=== PATIENT | female | born 1955 | race Caucasian/White ===

== ENCOUNTER 2016-09-06 14:06 | Inpatient (IN) | payer MEDICARE, OTHER ==
[~2016-09-06] VITALS: Ht 162.6 cm; Wt 87.3 kg
[2016-09-06] VITALS (24 sets, daily range): BP systolic 97–158; BP diastolic 46–101; PULSE 102–135; RESP 11–28; TEMP 98.3–99.5; O2SAT 91–100
[~2016-09-06 14:06] MED LIST: ACYC-1 PO; ALBU2.5I INH; ALBU8I INH; ATOR10 PO; BENZ100 PO; BISO5TAB5 PO; CEFD300C PO; CLOB-50 TOP; DAPA1TAB2 PO; DOXY100 PO; ECASA PO; EPIP0.3I IM; GABA100C4 PO; GABA300C3 PO; HUMALOGP SQ; HYCOS PO; IBUP800T23 PO; IMIT100T PO; LANTUS2P SQ; LORA0.5T PO; PRED10PA PO; PROM25TA5 PO; SERT25TA83 PO; ZEGE20CA PO; ZOLP10TA3 PO; [UNRECOGNIZED DRUG - CODE] TOP
[2016-09-06] MEDS ORDERED: SODIUM CHLOR 0.9% 1000 ML INJ 1,000 ML IV ONE (14:13)
[2016-09-06] MEDS ORDERED: LORazepam 2 MG/ML VIAL ONE (14:13)
[2016-09-06] MEDS ORDERED: SODIUM CHLORIDE 0.9% FLUSH 5 ML FLUSH IVF PRN (14:15)
[2016-09-06] MEDS ORDERED: LORazepam 2 MG/ML VIAL IV PUSH ONE (14:15)
[2016-09-06] MEDS ORDERED: FOSPHENYTOIN SODIUM 100 MG PE/2 ML VIAL IV ONE (14:30)
[2016-09-06 14:31] LABS: AUTOMATED NEUTROPHIL # 4.1 TH/MM3 (1.8-7.7); BASOPHIL # 0.1 TH/MM3 (0-0.2); BASOPHIL % 1.2 % (0.0-2.0); EOSINOPHIL # 0.2 TH/MM3 (0-0.4); EOSINOPHIL % 2.3 % (0.0-4.0); HEMATOCRIT 40.9 % (35.0-46.0); HEMO FLAGS DIFF FINAL; LYMPH % 25.1 % (9.0-44.0); LYMPHOCYTE # 1.7 TH/MM3 (1.0-4.8); MEAN CELL VOLUME 80.2 FL (80.0-100.0); MEAN CORPUSCULAR HGB CONC 34.9 % (32.0-36.0); MONO % 7.7 % (0.0-8.0); NEUT % 63.7 % (16.0-70.0); PLATELET COUNT 122 TH/MM3 (150-450); RED BLOOD COUNT 5.09 MIL/MM3 (4.00-5.30); RED CELL DISTRIBUTION WIDTH 13.7 % (11.6-17.2); WHITE BLOOD COUNT 6.6 TH/MM3 (4.0-11.0)
[2016-09-06] MEDS ORDERED: HUMA100I3 SQ (14:35)
[2016-09-06] MEDS ORDERED: LANTUS2P SQ (14:35)
[2016-09-06] MEDS ORDERED: ACYC400T PO (14:35)
[2016-09-06] MEDS ORDERED: HYDR-3535 PO (14:35)
[2016-09-06] MEDS ORDERED: DEXI30CA PO (14:35)
[2016-09-06] MEDS ORDERED: CYMB60CA PO (14:35)
[2016-09-06] MEDS ORDERED: GLIM1TAB PO (14:35)
[2016-09-06] MEDS ORDERED: LORA-392 PO (14:35)
[2016-09-06] MEDS ORDERED: FLUT1SPR9 EACH NARE (14:35)
[2016-09-06] MEDS ORDERED: LYRI100C PO (14:35)
[2016-09-06] MEDS ORDERED: ASPI81TA11 PO (14:35)
[2016-09-06 14:41] LABS: CHLORIDE 106 MEQ/L (98-107); POTASSIUM 3.8 MEQ/L (3.5-5.1); SODIUM (NA) 141 MEQ/L (136-145)
--- NOTE | 2016-09-06 14:43 | PD ---
HPI Chief Complaint: Seizure Time Seen by Provider: 14:08 Travel History International Travel<30 days: No Contact w/Intl Traveler<30days: No Traveled to known affect area: No History of Present Illness HPI 61-year-old female presents by ambulance with seizure episode Monday at home. She was at her primary care physician Dr. Gauthier when she had a witnessed generalized tonic-clonic seizure. When I went into the room the patient was tachycardic and having a resting tremor and could not talk with me. Significant history limited. PFSH Past Medical History Narrative Medical By records Hx Anticoagulant Therapy: Yes Arthritis: No Asthma: Yes Anxiety: Yes Depression: Yes Heart Rhythm Problems: Yes (afib) Cancer: No Cardiovascular Problems: Yes High Cholesterol: Yes Chest Pain: Yes Congestive Heart Failure: No COPD: No Cerebrovascular Accident: Yes Diabetes: Yes Endocrine: Yes Fibromyalgia: Yes Gastrointestinal Disorders: Yes GERD: Yes Genitourinary: No Headaches: No Hiatal Hernia: No Hypertension: No Immune Disorder: No Implanted Vascular Access Dvce: Yes Musculoskeletal: Yes Neurologic: Yes Psychiatric: Yes Reproductive: No Respiratory: Yes Migraines: No Myocardial Infarction: No Seizures: No Sleep Apnea: No Ulcer: No Past Surgical History Narrative Surgical By records Abdominal Surgery: Yes (gallbladder, apx) AICD: No Appendectomy: Yes Arteriovenous Shunt: No Body Medical Devices: heart recorder Cardiac Surgery: Yes (cath;loop recorder) Cholecystectomy: Yes Ear Surgery: No Endocrine Surgery: No Eye Surgery: No Genitourinary Surgery: No Gynecologic Surgery: Yes (hysto) Hysterectomy: Yes Insulin Pump: No Joint Replacement: No Neurologic Surgery: No Oral Surgery: No Pacemaker: No Thoracic Surgery: No Other Surgery: Yes Social History Narrative Social History By records Alcohol Use: No Tobacco Use: No Substance Use: No Allergies-Medications (Allergen,Severity, Reaction): Coded Allergies: Bee Sting (Verified Allergy, Severe, Anaphylaxis, 09/06/16) Egg Allergy (Verified Allergy, Severe, SWELLING, 09/06/16) Flu Vaccine (Verified Allergy, Severe, Anaphylaxis, 09/06/16) Sulfa (Verified Allergy, Unknown, RASH, 09/06/16) Reported Meds & Prescriptions Reported Meds & Active Scripts Active Reported Ambien (Zolpidem Tartrate) 10 Mg Tab 10 Mg PO HS PRN Voltaren Topical (Diclofenac Topical) 1% Gel 1 Applic TOPICAL QID Ventolin Hfa 18 GM Inh (Albuterol Sulfate) 90 Mcg/Act Aer 2 Puff INH Q4-6H PRN Symbicort Inh (Budesonide/Formoterol Fumarate) 160-4.5 Mcg/Act Aero 1 Puff INH Q12HR Imitrex (Sumatriptan Succinate) 100 Mg Tab 100 Mg PO ONCE PRN If a satisfactory response has not been obtained at 2 hours, a second dose may be administered Remicade Inj (Infliximab) 100 Mg Inj [id number] Phenergan (Promethazine HCl) 25 Mg Tab 25 Mg PO PRN Prednisone 10 Mg Tab 10 Mg PO BID Metformin (Metformin HCl) 1,000 Mg Tab 1,000 Mg PO BIDPC With meals Lyrica (Pregabalin) 100 Mg Cap 100 Mg PO BID Ativan (Lorazepam) 0.5 Mg Tab 0.5 Mg PO BID PRN Lantus Inj (Insulin Glargine) 1,000 Unit/10 Ml Vial 20 Units SQ HS Lortab (Hydrocodone-Acetaminophen) 10-325 Mg Tab 1 Tab PO Q6H PRN Humalog Kwikpen Pen Inj (Insulin Lispro (Human) Inj) 300 Unit/3 Ml Pen 1 Units SQ DIRECTED Glimepiride 1 Mg Tab 1 Mg PO DAILY Take with breakfast or first main meal Flonase Allergy Relief Children Nasal [place] (Fluticasone Nasal [place]) 50 Mcg/ Act [place] 1 [place] EACH NARE DAILY 50 mcg/spray Dexilant (Dexlansoprazole) 30 Mg Cap 30 Mg PO DAILY Cymbalta DR (Duloxetine HCl) 60 Mg Capdr 60 Mg PO DAILY Aspirin EC (Aspirin) 81 Mg Tabdr 81 Mg PO DAILY Acyclovir 400 Mg Tab 400 Mg PO TID PRN Review of Systems ROS Limitations: Altered Mental Status Except as stated in HPI: all other systems reviewed are Neg Physical Exam Exam Limitations: Altered Mental Status Narrative GENERAL: Well-nourished, well-developed patient. Resting tremor noted SKIN: Warm and dry. HEAD: Normocephalic and atraumatic. EYES: No injection or drainage. ENT: No nasal drainage noted. NECK: Supple, trachea midline. no meningeal signs when awake CARDIOVASCULAR: Tachycardic rate and regular rhythm RESPIRATORY: Breath sounds equal bilaterally. No accessory muscle use. GASTROINTESTINAL: Abdomen soft,nondistended. NEUROLOGICAL: Eyes open, resting tremor noted, nonverbal Data Data Last Documented VS Vital Signs Date Time Temp Pulse Resp B/P Pulse Ox O2 Delivery O2 Flow Rate FiO2 09/06/16 16:20 Room Air 09/06/16 16:01 107 16 122/75 100 09/06/16 14:08 98.3 Orders Lorazepam Inj (Ativan Inj) (09/06/16 14:15) Complete Blood Count With Diff (09/06/16 14:13) Alcohol (Ethanol) (09/06/16 14:13) Drug Screen, Random Urine (09/06/16 14:13) Electrocardiogram (09/06/16 ) Ct Brain W/O Iv Contrast(Rout) (09/06/16 ) Blood Glucose (09/06/16 14:13) Ecg Monitoring (09/06/16 14:13) Iv Access Insert/Monitor (09/06/16 14:13) Oximetry (09/06/16 14:13) Comprehensive Metabolic Panel (09/06/16 14:13) Sodium Chlor 0.9% 1000 Ml Inj (Ns 1000 M (09/06/16 14:13) Sodium Chloride 0.9% Flush (Ns Flush) (09/06/16 14:15) Urinalysis - C+S If Indicated (09/06/16 14:13) Lorazepam Inj (Ativan Inj) (09/06/16 14:13) Fosphenytoin Inj (Cerebyx Inj) (09/06/16 14:30) Ondansetron Inj (Zofran Inj) (09/06/16 16:00) Admit Order (Ed Use Only) (09/06/16 16:20) Consult Neurology (09/06/16 ) Labs Laboratory Tests Test 09/06/16 14:20 White Blood Count 6.6 TH/MM3 Red Blood Count 5.09 MIL/MM3 Hemoglobin 14.3 GM/DL Hematocrit 40.9 % Mean Corpuscular Volume 80.2 FL Mean Corpuscular Hemoglobin 28.0 PG Mean Corpuscular Hemoglobin 34.9 % Concent Red Cell Distribution Width 13.7 % Platelet Count 122 TH/MM3 Mean Platelet Volume 8.3 FL Neutrophils (%) (Auto) 63.7 % Lymphocytes (%) (Auto) 25.1 % Monocytes (%) (Auto) 7.7 % Eosinophils (%) (Auto) 2.3 % Basophils (%) (Auto) 1.2 % Neutrophils # (Auto) 4.1 TH/MM3 Lymphocytes # (Auto) 1.7 TH/MM3 Monocytes # (Auto) 0.5 TH/MM3 Eosinophils # (Auto) 0.2 TH/MM3 Basophils # (Auto) 0.1 TH/MM3 CBC Comment DIFF FINAL Differential Comment Prothrombin Time 10.2 SEC Prothromb Time International 0.9 RATIO Ratio Sodium Level 141 MEQ/L Potassium Level 3.8 MEQ/L Chloride Level 106 MEQ/L Carbon Dioxide Level 22.6 MEQ/L Anion Gap 12 MEQ/L Blood Urea Nitrogen 7 MG/DL Creatinine 0.86 MG/DL Estimat Glomerular Filtration 68 ML/MIN Rate Random Glucose 212 MG/DL Calcium Level 9.3 MG/DL Total Bilirubin 0.6 MG/DL Aspartate Amino Transf 35 U/L (AST/SGOT) Alanine Aminotransferase 80 U/L (ALT/SGPT) Alkaline Phosphatase 83 U/L Total Protein 7.3 GM/DL Albumin 4.0 GM/DL Ethyl Alcohol Level LESS THAN 3 MG/DL MDM Medical Decision Making Medical Screen Exam Complete: Yes Emergency Medical Condition: Yes Medical Record Reviewed: Yes (past history confirmed with office records and hospital records) Interpretation(s) EKG is sinus tachycardia at 115 without STEMI criteria CBC & BMP Diagram 09/06/16 14:20 Last [address] 09/06/16 0000 Signed Impressions: Service Date/Time: Tuesday, September 06, 2016 15:37 - CONCLUSION: Normal examination for a patient of this age. No significant change has occurred. Riley Villaseñor MD Differential Diagnosis Hypoglycemia, hyponatremia, medication withdrawal, intracranial, seizure disorder... Narrative Course Will check blood work, CT brain and dose with 1 mg of Ativan to decrease seizure threshold as she looks like she is about to have a seizure; while I was entering Ativan she started to have a generalized tonic-clonic seizure per nursing staff when I went in the room she was postictal and given 2 mg of Ativan in total at that time; shortly after she was awake and talking and denied alcohol use or chronic benzodiazepine use. She states that she recalled getting shaky 1438 started having another seizure episode per nurse, when I went in the room patient was nonverbal and having fine movement noted to upper arms but did not appear to be a full generalized tonic-clonic seizure. We'll continually monitor and had nursing staff call pharmacy to expedite Cerebyx 1455 patient started having episode, cerebyx now here and running in, will monitor On reassessment after completion of Cerebyx she is alert and oriented and has stopped seizing. She denies specific complaints currently and agrees to admission to the hospital for further testing Critical Care Narrative Aggregate critical care time was 31 minutes. Time to perform other separately billable procedures was not included in the critical care time. My time did not include minutes spent treating any other patients simultaneously or on activities that did not directly contribute to the patient's treatment. The services I provided to this patient were to treat and/or prevent clinically significant deterioration that could result in: Status epilepticus, respiratory failure I provided critical care services requiring my management, as noted below: Chart data review, documentation time, medication orders and management, vital sign assessments/reviewing monitor data, ordering and reviewing lab tests, ordering and interpreting/reviewing x-rays and diagnostic studies, care of the patient and discussion of the patient with the admitting physicians.Patient with multiple seizures and Ativan and Cerebyx given, new onset, multiple reassessments Physician Communication Physician Communication dr montoya states to load with 15 mg/kg of Cerebyx and admit with MRI, EEG and further testing dr nichols agrees to admit Diagnosis Primary Impression: Seizure Additional Impression: Sarcoidosis Admitting Information Admitting Physician Requests: Admit Cathy Sauer MD Sep 06, 2016 14:43
[2016-09-06 14:45] LABS: ANION GAP 12 MEQ/L (5-15); BICARBONATE 22.6 MEQ/L (21.0-32.0); BLOOD UREA NITROGEN 7 MG/DL (7-18)
[2016-09-06] MEDS ORDERED: PROM25TA5 PO (14:47)
[2016-09-06] MEDS ORDERED: METF1000 PO (14:47)
[2016-09-06] MEDS ORDERED: IMIT100T PO (14:47)
[2016-09-06] MEDS ORDERED: INFL100P (14:47)
[2016-09-06] MEDS ORDERED: PRED10 PO (14:47)
[2016-09-06] MEDS ORDERED: SYMB160A INH (14:47)
[2016-09-06] MEDS ORDERED: VENTAER INH (14:47)
[2016-09-06] MEDS ORDERED: AMBI10TA PO (14:47)
[2016-09-06] MEDS ORDERED: DICL1GEL TOPICAL (14:47)
[2016-09-06 14:48] LABS: ALT (GPT) 80 U/L (10-53); AST (GOT) 35 U/L (15-37); GLOMERULAR FILTRATION RATE 68 ML/MIN (>89)
[2016-09-06 14:49] LABS: TOTAL BILIRUBIN ADULT 0.6 MG/DL (0.2-1.0)
[2016-09-06 14:50] LABS: ALKALINE PHOSPHATASE 83 U/L (45-117)
--- NOTE | 2016-09-06 15:52 | RADHPO ---
EXAM DATE/TIME: 09/06/2016 15:37 [facility] COMPARISON: CT BRAIN W/O CONTRAST, August 21, 2014, 10:01. INDICATIONS : New onset seizure. RADIATION DOSE: 56.94 CTDIvol (mGy) MEDICAL HISTORY : Cerebrovascular disease. Cardiovascular disease Diabetes. SURGICAL HISTORY : Cardiac surgery. ENCOUNTER: Initial ACUITY: 1 day PAIN SCALE: 0/10 LOCATION: cranial TECHNIQUE: Multiple contiguous axial images were obtained of the head. Using automated exposure control and adj ustment of the mA and/or kV according to patient size, radiation dose was kept as low as reasonably a chievable to obtain optimal diagnostic quality images. FINDINGS: CEREBRUM: The ventricles are normal for age. No evidence of midline shift, mass lesion, hemorrhage or acute in farction. No extra-axial fluid collections are seen. POSTERIOR FOSSA: The cerebellum and brainstem are intact. The 4th ventricle is midline. The cerebellopontine angle i s unremarkable. EXTRACRANIAL: The visualized portion of the orbits is intact. SKULL: The calvaria is intact. No evidence of skull fracture. CONCLUSION: Normal examination for a patient of this age. No significant change has occurred. Riley Villaseñor MD on September 06, 2016 at 15:50 Board Certified Radiologist. This report was verified electronically.
[2016-09-06] MEDS ORDERED: ONDANSETRON HCL 4 MG/2 ML VIAL IV PUSH ONE (16:00)
[2016-09-06 16:45] LABS: BLOOD, URINE NEG (NEG); KETONE, URINE TRACE mg/dL (NEG); NITRITE,URINE NEG (NEG)
[2016-09-06 16:55] LABS: COMMENT (UR) CULT NOT INDICATED; CULTURE IF INDICATED CULT NOT INDICATED; GLUCOSE,URINE 1000 OR GREATER mg/dL (NEG); METHOD OF COLLECTION CLEAN CATCH; RBC, URINE 0-3 /hpf (0-3); SQUAMOUS EPITHELIAL CELL URINE 0-5 /hpf (0-5); URINE COLOR YELLOW (YELLW/STRAW)
[2016-09-06] MEDS ORDERED: SODIUM CHLORIDE 0.9% FLUSH 5 ML FLUSH FLUSH PRN (17:15)
[2016-09-06] MEDS ORDERED: VANCOMYCIN INJ 1,250 MG in SODIUM CHLOR 0.9% 250 ML INJ 250 ML IV SCH (17:15)
--- NOTE | 2016-09-06 17:25 | HHI.HP ---
[facility] Service [facility] Hospitalists Primary Care Physician Non-Staff Admission Diagnosis new onset seizure disorder Diagnoses: Chief Complaint: Weakness and seizure Travel History International Travel<30 Days: No Contact w/Intl Traveler <30 Da: No Traveled to Known Affected Are: No History of Present Illness Patient is a 61-year-old female who had seizures in her primary doctor's office and was sent to the emergency room. Lady has no history of seizures and no recent brain trauma. She did have a follow-up visit scheduled with her primary doctor after being admitted to the hospital for acute exacerbation of asthma and discharged on steroids and bronchodilator therapy. In the office she had a seizure witnessed by the staff and was sent urgently to the emergency room where she had for more seizures which were treated with Ativan and Cerebyx. Patient had clonic movements and eye jerking and had minimal contact. There was no urinary incontinence and she did not bite her tongue. She has never had seizures before but says that last Monday her family said she had some tremors and jerking movements which they thought looked like a seizure. Patient this time says she feels ill and has felt ill for the last week. She's had increased fatigue without fever but has had some flushing. She does have a history of HSV and takes acyclovir as needed. Patient has not had any fevers or chills documented here and has no leukocytosis. There is some right lower extremity weakness that is new for the patient and the patient has been tachycardic here in the emergency room. There is no chest pain complaint. She does complain of a headache. She has had migraines for years but note characteristic change in her headaches over the last 3 days. Headache is in the back of her neck and radiates down her neck. She has full range of motion without tenderness of her neck and there is no Kernig or straight leg sign of note on exam. Patient's been admitted to the hospital for seizures of new onset Review of Systems Constitutional: COMPLAINS OF: Fatigue, Chills, Dizziness, DENIES: Diaphoretic episodes, Fever, Weight gain, Weight loss, Change in appetite, Night Sweats Endocrine: DENIES: Abnorml menstrual pattern, Heat/cold intolerance, Polydipsia , Polyuria, Polyphagia Eyes: DENIES: Blurred vision, Diplopia, Eye inflammation, Eye pain, Vision loss , Photosensitivity, Double Vision Ears, nose, mouth, throat: DENIES: Tinnitus, Hearing loss, Vertigo, Nasal discharge, Oral lesions, Throat pain, Hoarseness, Ear Pain, Running Nose, Epistaxis, Sinus Pain, Toothache, Odynophagia Respiratory: DENIES: Apneas, Cough, Snoring, Wheezing, Hemoptysis, Sputum production, Shortness of breath Cardiovascular: DENIES: Chest pain, Palpitations, Syncope, Dyspnea on Exertion , PND, Lower Extremity Edema, Orthopnea, Claudication Gastrointestinal: DENIES: Abdominal pain, Black stools, Bloody stools, Constipation, Diarrhea, Nausea, Vomiting, Difficulty Swallowing, Anorexia Genitourinary: DENIES: Abnormal vaginal bleeding, Dysmenorrhea, Dyspareunia, Sexual dysfunction, Urinary frequency, Urinary incontinence, Urgency, Hematuria , Dysuria, Nocturia, Vaginal discharge Musculoskeletal: DENIES: Joint pain, Muscle aches, Stiffness, Joint Swelling, Back pain, Neck pain Integumentary: DENIES: Abnormal pigmentation, Pruritus, Rash, Nail changes, Breast masses, Breast skin changes, Nipple discharge Hematologic/lymphatic: DENIES: Bruising, Lymphadenopathy Immunologic/allergic: DENIES: Eczema, Urticaria Neurologic: COMPLAINS OF: Headache, Seizures, Tremor, DENIES: Abnormal gait, Localized weakness, Paresthesias, Speech Problems, Poor Balance Psychiatric: DENIES: Anxiety, Confusion, Mood changes, Depression, Hallucinations, Agitation, Suicidal Ideation, Homicidal Ideation, Delusions Past Family Social History Past Medical History Psoriatic arthritis and rheumatoid arthritis (Recently started Remicade) Diabetes mellitus History of HSV GERD Asthma, recent exacerbation at [facility] Diabetic neuropathy History of migraines Past Surgical History Cholecystectomy, appendectomy Loop heart rate for heart catheter Hysterectomy Reported Medications Reviewed and the medical record, has been on Remicade for 8 weeks Allergies: Coded Allergies: Bee Sting (Verified Allergy, Severe, Anaphylaxis, 09/06/16) Egg Allergy (Verified Allergy, Severe, SWELLING, 09/06/16) Flu Vaccine (Verified Allergy, Severe, Anaphylaxis, 09/06/16) Sulfa (Verified Allergy, Unknown, RASH, 09/06/16) Active Ordered Medications Reviewed in the medical record Family History Her son has seizures Social History No tobacco or alcohol dependency, recently left [facility] on the with treatment for acute exacerbation of asthma No recent travel No sick contacts Physical Exam Vital Signs Vital Signs Date Time Temp Pulse Resp B/P Pulse Ox O2 Delivery O2 Flow Rate FiO2 09/06/16 17:08 112 16 123/63 97 Room Air 09/06/16 16:20 Room Air 09/06/16 16:01 107 16 122/75 100 Room Air 09/06/16 15:32 112 20 123/61 95 Room Air 09/06/16 15:13 117 17 100 Room Air 09/06/16 15:01 128 19 158/101 99 Room Air 09/06/16 14:36 135 27 144/84 99 09/06/16 14:25 122 16 140/73 96 Room Air 09/06/16 14:19 124 95 Room Air 09/06/16 14:19 95 Room Air 09/06/16 14:08 98.3 117 16 140/73 98 Physical Exam GENERAL: This is a well-nourished, well-developed patient, she appears flushed and ill appearing. SKIN: No rashes, ecchymoses or lesions. Cool and dry. HEAD: Atraumatic. Normocephalic. No temporal or scalp tenderness. EYES: Pupils equal round and reactive. Extraocular motions intact. No scleral icterus. No injection or drainage. ENT: Nose without bleeding, purulent drainage or septal hematoma. Throat without erythema, tonsillar hypertrophy or exudate. Uvula midline. Airway patent. NECK: Trachea midline. No JVD or lymphadenopathy. Supple, nontender, no meningeal signs. CARDIOVASCULAR: Sinus tachycardia without murmurs, gallops, or rubs. RESPIRATORY: Clear to auscultation. Breath sounds equal bilaterally. No wheezes , rales, or rhonchi. GASTROINTESTINAL: Abdomen soft, non-tender, nondistended. No hepato-splenomegaly , or palpable masses. No guarding. MUSCULOSKELETAL: Extremities without clubbing, cyanosis, or edema. No joint tenderness, effusion, or edema noted. No calf tenderness. Negative Homans sign bilaterally. NEUROLOGICAL: A right lower extremity weakness is present, awake and alert. Cranial nerves II through XII intact. Motor and sensory grossly within normal limits. Five out of 5 muscle strength in all muscle groups. Normal speech. Laboratory Laboratory Tests Test 09/06/16 09/06/16 14:20 16:36 White Blood Count 6.6 Red Blood Count 5.09 Hemoglobin 14.3 Hematocrit 40.9 Mean Corpuscular Volume 80.2 Mean Corpuscular Hemoglobin 28.0 Mean Corpuscular Hemoglobin 34.9 Concent Red Cell Distribution Width 13.7 Platelet Count 122 Mean Platelet Volume 8.3 Neutrophils (%) (Auto) 63.7 Lymphocytes (%) (Auto) 25.1 Monocytes (%) (Auto) 7.7 Eosinophils (%) (Auto) 2.3 Basophils (%) (Auto) 1.2 Neutrophils # (Auto) 4.1 Lymphocytes # (Auto) 1.7 Monocytes # (Auto) 0.5 Eosinophils # (Auto) 0.2 Basophils # (Auto) 0.1 CBC Comment DIFF FINAL Differential Comment Sodium Level 141 Potassium Level 3.8 Chloride Level 106 Carbon Dioxide Level 22.6 Anion Gap 12 Blood Urea Nitrogen 7 Creatinine 0.86 Estimat Glomerular Filtration 68 Rate Random Glucose 212 Calcium Level 9.3 Total Bilirubin 0.6 Aspartate Amino Transf 35 (AST/SGOT) Alanine Aminotransferase 80 (ALT/SGPT) Alkaline Phosphatase 83 Total Protein 7.3 Albumin 4.0 Ethyl Alcohol Level LESS THAN 3 Urine Collection Type CLEAN CATCH Urine Color YELLOW Urine Turbidity CLEAR Urine pH 6.0 Urine Specific [place] 1.019 Urine Protein NEG Urine Glucose (UA) 1000 OR GREATER Urine Ketones TRACE Urine Occult Blood NEG Urine Nitrite NEG Urine Bilirubin NEG Urine Leukocyte Esterase NEG Urine RBC 0-3 Urine Squamous Epithelial 0-5 Cells Microscopic Urinalysis Comment CULT NOT INDICATED Urine Collection Time 16:356 Result Diagram: 09/06/16 1420 09/06/16 1420 Imaging Last Impressions Head CT 09/06/16 0000 Signed Impressions: Service Date/Time: Tuesday, September 06, 2016 15:37 - CONCLUSION: Normal examination for a patient of this age. No significant change has occurred. Riley Villaseñor MD Assessment and Plan Problem List: (1) Seizure ICD Code: R56.9 Status: Acute Plan: New onset, some right lower extremity weakness MRI pending Rule out meningitis, stroke, continue with current antibiotics and antiepileptic drugs for now We'll monitor patient in ICU (2) Asthma ICD Code: J45.909 Status: Acute Plan: Continue bronchodilators as needed, recent hospitalization with acute exacerbation ([facility]) (3) DM2 (diabetes mellitus, type 2) ICD Code: E11.9 Status: Chronic Plan: Continue home medicines Physician Certification 2 Midnight Certification Type: Admission for Inpatient Services Order for Inpatient Services The services are ordered in accordance with Medicare regulations or non- Medicare payer requirements, as applicable. In the case of services not specified as inpatient-only, they are appropriately provided as inpatient services in accordance with the 2-midnight benchmark. Estimated LOS (days): 4 4 days is the estimated time the patient will need to remain in the hospital, assuming treatment plan goals are met and no additional complications. Post-Hospital Plan: Home Emerita Vidales MD Sep 06, 2016 17:25
[2016-09-06 17:39] LABS: AMPHETAMINE, URINE NEG (NEG); BARBITURATES, URINE NEG (NEG); COCAINE, URINE NEG (NEG)
[2016-09-06] MEDS: cefTRIAXone INJ 2,000 MG in SODIUM CHLORIDE 0.9% INJ 100 ML IV SCH (17:46)
[2016-09-06] MEDS: SODIUM CHLOR 0.9% 1000 ML INJ 1,000 ML IV SCH (17:47)
[2016-09-06 17:48] LABS: INTERNATIONAL NORMALIZED RATIO 0.9 RATIO; PROTHROMBIN TIME - PATIENT 10.2 SEC (9.8-11.6)
[2016-09-06] MEDS ORDERED: Vancomycin Consult Pharmacy 1 EA OTHER SCH (18:00)
[2016-09-06] MEDS: LORazepam 2 MG/ML VIAL IV PUSH PRN ×2 (18:31→21:57)
[2016-09-06] MEDS: VANCOMYCIN 1,000 MG/NS 250 ML IV SCH ×2 (20:20)
[2016-09-06] MEDS ORDERED: CHLORHEXIDINE GLUCONATE 2 % 1 PACK (2 CLOTHS)(extra cloths) TOP PRN (21:45)
[2016-09-06] MEDS ORDERED: FOSPHENYTOIN SODIUM 100 MG PE/2 ML VIAL IV SCH (22:00)
[2016-09-06] MEDS: FOSPHENYTOIN SODIUM 100 MG PE/2 ML VIAL IV SCH (22:00)
[2016-09-06] MEDS ORDERED: levETIRAcetam 500MG PREMIX INJ 100 ML IV SCH (22:30)
[2016-09-06] MEDS ORDERED: SODIUM CHLOR 0.9% 250 ML INJ 250 ML IV PRN (22:30)
[2016-09-06] MEDS: SODIUM CHLORIDE 0.9% FLUSH 5 ML FLUSH FLUSH SCH (22:42)
[2016-09-07] VITALS (37 sets, daily range): BP systolic 90–139; BP diastolic 53–80; PULSE 84–136; RESP 11–30; TEMP 98.1–98.5; O2SAT 93–99
[2016-09-07] MEDS: CHLORHEXIDINE GLUCONATE 2 % 1 PACK (2 CLOTHS)(taper/protocol) TOP SCH (04:00)
[2016-09-07] MEDS: SODIUM CHLOR 0.9% 1000 ML INJ 1,000 ML IV SCH ×3 (04:19→23:39)
[2016-09-07] MEDS: cefTRIAXone INJ 2,000 MG in SODIUM CHLORIDE 0.9% INJ 100 ML IV SCH ×2 (06:16→17:33)
[2016-09-07] MEDS: FOSPHENYTOIN SODIUM 100 MG PE/2 ML VIAL IV SCH ×3 (06:16→21:16)
[2016-09-07] MEDS: VANCOMYCIN 1,000 MG/NS 250 ML IV SCH ×4 (07:52→20:22)
[2016-09-07] MEDS: SODIUM CHLORIDE 0.9% FLUSH 5 ML FLUSH FLUSH SCH ×2 (09:46→20:57)
[2016-09-07] MEDS ORDERED: levETIRAcetam 500 MG/NS 100 ML IV SCH ×2 (10:00)
[2016-09-07] MEDS ORDERED: GLUCAGON 1 MG/ML VIAL OTHER PRN (10:15)
[2016-09-07] MEDS ORDERED: DEXTROSE 50% IN WATER 50 ML VIAL(D50) IV PUSH PRN (10:15)
--- NOTE | 2016-09-07 10:21 | HHI.PR ---
Subjective Remarks Patient seen and examined today. Patient little lethargic from medications. It was indicated by and patient, that she had another seizure last night at 9 PM. Patient did undergo EEG this morning. Awaiting further workup at this time. Objective Vitals Vital Signs Date Time Temp Pulse Resp B/P Pulse Ox O2 Delivery O2 Flow Rate FiO2 09/07/16 07:01 92 12 100/56 09/07/16 06:01 100 17 98/60 09/07/16 06:01 100 09/07/16 05:01 94 18 104/66 09/07/16 04:01 98.1 98 17 97 09/07/16 04:01 98 09/07/16 04:00 100 09/07/16 03:01 102 17 99/58 09/07/16 02:01 102 18 101/56 09/07/16 02:01 102 09/07/16 02:00 102 09/07/16 01:00 102 19 96/60 09/07/16 00:20 106 21 97/61 09/07/16 00:00 98.5 96 19 99/57 96 09/07/16 00:00 96 09/06/16 23:39 108 25 102/61 97 09/06/16 23:24 106 14 108/56 96 09/06/16 23:24 106 09/06/16 23:09 108 15 114/57 94 09/06/16 22:54 102 15 126/58 91 09/06/16 22:39 104 17 107/61 93 09/06/16 22:30 108 16 118/62 92 09/06/16 22:30 108 09/06/16 22:20 110 17 104/64 92 09/06/16 22:10 116 18 136/63 91 09/06/16 22:00 118 13 133/71 92 09/06/16 21:48 126 09/06/16 21:48 126 28 118/78 97 09/06/16 21:00 104 11 101/76 96 09/06/16 20:00 106 09/06/16 19:58 99.5 106 11 118/58 95 09/06/16 19:31 111 18 97/46 98 Room Air 09/06/16 18:24 Room Air 09/06/16 17:59 99.2 110 16 117/53 96 Room Air 09/06/16 17:08 112 16 123/63 97 Room Air 09/06/16 16:20 Room Air 09/06/16 16:01 107 16 122/75 100 Room Air 09/06/16 15:32 112 20 123/61 95 Room Air 09/06/16 15:13 117 17 100 Room Air 09/06/16 15:01 128 19 158/101 99 Room Air 09/06/16 14:36 135 27 144/84 99 09/06/16 14:25 122 16 140/73 96 Room Air 09/06/16 14:19 124 95 Room Air 09/06/16 14:19 95 Room Air 09/06/16 14:08 98.3 117 16 140/73 98 I/O 09/06/16 09/06/16 09/06/16 09/07/16 09/07/16 09/07/16 07:00 15:00 23:00 07:00 15:00 23:00 Intake Total 996 ml Output Total 400 ml 950 ml Balance -400 ml 46 ml Intake Oral 120 ml IV Total 876 ml Output Urine Total 400 ml 950 ml Stool Total 0 ml # Voids 0 Result Diagram: 09/06/16 1420 09/06/16 1420 Objective Remarks GENERAL: Well-developed, well-nourished, in no acute distress. alert and orientated HEENT: Head is normocephalic without any lesions or masses noted. Facial features are symmetric. Eyes: Pupils equal round reactive to light. Extraocular muscles are intact. Conjunctivae were clear. NECK: Supple without any masses. Trachea midline no deviation. No JVD, CARDIAC: Regular rhythm, regular rate. S1/S2 are heard. No murmurs gallops or rubs. LUNGS: Clear to auscultation bilaterally. No wheeze, rhonchi or rales. No use of accessory muscles on inspiration or expiration. ABDOMEN: Soft, nontender. Nondistended. Bowel sounds heard in all 4 quadrants. No organomegaly or masses. Negative rebound, negative guarding EXTREMITIES: No edema, pulses are equal bilaterally. No cyanosis or clubbing NEUROLOGY: Mood and affect appear appropriate. Cranial nerves II through XII grossly intact. Moving all extremities, speech is clear Urinary Catheter: No Vascular Central Line Catheter: No A/P Assessment and Plan New onset seizures versus pseudoseizures, unknown etiology CT scan does not indicate any acute abnormality Awaiting MRI EEG has been performed, awaiting interpretation Patient is on Cerebyx, phenobarbital, Keppra and Ativan as needed for seizures - still having questionable seizures wherein she remains communicative with the nurses - I witnessed one myself this morning and the patient was grasping onto the handrail of her bed with her left hand and arching her back and hyperventilating and saying yes or no to me in response to questioning and did not appear post ictal afterwards. Rule out meningitis secondary patient having headache and neck pain with seizures. Awaiting lumbar puncture Patient continued on Rocephin and vancomycin until ruled out for meningitis Neurology has been consulted for recommendations Asthma Continue bronchodilators as needed, recent hospitalization with acute exacerbation ([facility]) Diabetes type 2 Accu-Cheks with sliding scale insulin DVT prevention Subcutaneous Lovenox Written by Musa Pradhan PA-C, acting as scribe for Dr. Pardo on 09/07/16 at 1120. The documentation accurately reflects the work and decisions performed face-to- face by Dr. Pardo on 09/07/16 at 1120. Musa Pradhan Sep 07, 2016 10:21 Barbara Pardo MD Sep 07, 2016 13:04
[2016-09-07] MEDS: LORazepam 2 MG/ML VIAL IV PUSH PRN (10:40)
[2016-09-07] MEDS: INSULIN ASPART SUPPLEMENTAL SCALE SQ SCH ×3 (12:00→21:15)
--- NOTE | 2016-09-07 14:30 | PD.RAD ---
Post Procedure Progress Note Pre Procedure Diagnosis: (1) Seizure Post Procedure Diagnosis: (1) Seizure Procedure Date: Sep 07, 2016 Supervising Radiologist: Aleksandr Nolasco JR Proceduralist/Assist: Carlie Conway RT(R)(), RT Wendy(R) Anesthesia: Local Plan of Activity Patient to Unit: Nursing Unit Patient Condition: Good See PACS Report for procedural detail/treatment Spinal Procedure Lumbar Puncture L3-L4 Fluid Removal (CCs): 12 Fluid Description: Clear Puncture Time: 14:25 Findings: Opening pressure: 18 cmH2O Clear CSF Samples to lab Jr. Gaurav,Aleksandr Lilly MD Sep 07, 2016 14:30
--- NOTE | 2016-09-07 14:48 | RADHPO ---
EXAM DATE/TIME: 09/07/2016 14:14 [facility] COMPARISON: None. INDICATIONS : Patient with a history of seizures, headaches. MEDICAL HISTORY : Psoriatic arthritis Diabetes HSV GERD Asthma Diabetic neuropathy Migraines SURGICAL HISTORY : Cholecystectomy Appendectomy Hysterectomy ENCOUNTER: Initial ACUITY: 2 days PAIN SCORE: 0/10 LUMBAR PUNCTURE TIME: 1420 hours FLUORO TIME: 0.5 minutes ACCESS LEVEL: L3-4. Below the right L3 lamina. OPENING PRESSURE: 18 cm of water CLOSING PRESSURE: Not requested. FLUID: 12 cc of clear CSF was collected and sent to the laboratory for analysis. PROCEDURE : 1. Fluoroscopic guided lumbar puncture. 2. Recording of opening pressure. The risks, benefits and alternatives to the procedure were explained and verbal and written consent w as obtained. The site was prepped in sterile fashion. Full sterile technique was used, including ca p, mask, sterile gloves and gown and a large sterile sheet. Hand hygiene and 2% chlorhexidine and/or betadine/alcohol prep was utilized per protocol for cutaneous antisepsis. The skin and subcutaneous tissues were infiltrated with local anesthetic solution. With fluoroscopic guidance the lumbar thecal sac was punctured at the above level described above and the opening pressure was recorded. The above described fluid was removed without difficulty. The patient tolerated the procedure well and there were no complications. CONCLUSION: Uncomplicated fluoroscopically guided lumbar puncture with pressures as above. Clear CSF noted and sent to the lab. Aleksandr Nolasco Jr., MD Board Certified Radiologist. This report was verified electronically.
--- NOTE | 2016-09-07 14:52 | MG ---
cc: FATMATA DORSEY Lab No: [id number] Date: 09/07/2016 Age: Sex: F Stat. EEG. Status post a milligram of Ativan. Heart rate in the 150s. Drawing arms up, shaking, lifts head, holds breath, red in the face. Fibromyalgia. MEDICATIONS Phenobarbital, Keppra, Cerebyx. Ceftriaxone. DESCRIPTION The recording shows diffuse beta rhythms and alpha rhythms. The recording overall is synchronous and symmetric and looks quite normal. Photic stimulation is performed without significant posterior driving. There is an episode where her mouth is moving. She arches her back up and raises her legs and arms. This does not correlate with any seizure activity and just has motor artifact. Some sleep spindles are seen later in the recording which are synchronous and symmetric. At times some diffuse 9 Hz, 60 microvolt rhythms are seen. She had another episode of shaking her legs and that does not correlate with any seizure activity. Breathing heavy at times, head back, pulling at bed, says she needs something to drink. Breath-holding, screaming, arms out rigid. All that looks like muscle artifact. IMPRESSION This is a normal EEG, has some medication effect from benzodiazepines but there is no epileptiform or seizure activity. Several episodes of moving, yelling out, pulling his arms and legs up did not correlate with any seizure activity. MD MIHAELA Ca/ANNE /2:28 PM /2:42 PM
[2016-09-07 15:11] LABS: GROSS BLOOD TUBE #1 0 (0); GROSS BLOOD TUBE #2 0 (0); GROSS BLOOD TUBE #3 0 (0); GROSS BLOOD TUBE #4 0 (0); SUPERNATE COLOR TUBE #1 CLEAR (CLEAR); SUPERNATE COLOR TUBE #2 CLEAR (CLEAR); SUPERNATE COLOR TUBE #3 CLEAR (CLEAR); SUPERNATE COLOR TUBE #4 CLEAR (CLEAR); VOLUME TUBE # 1 2.5 ML; VOLUME TUBE # 2 2.5 ML; WBC TUBE #4 0 /MM3 (0-10)
--- NOTE | 2016-09-07 15:53 | EKG ---
Date Performed: 09/06/2016 Time Performed: 14:07:38 PTAGE: 61 years EKG: Sinus tachycardia. Short OK interval Compared to prior tracing no significant change Border line ECG PREVIOUS TRACING : 09/10/2015 15.32 DOCTOR: Alan Guy Interpretating Date/Time 09/07/2016 15:52:33
--- NOTE | 2016-09-07 15:53 | RADHPO ---
EXAM DATE/TIME: 09/07/2016 14:56 [facility] COMPARISON: No previous studies available for comparison. INDICATIONS: Seizures. MEDICAL HISTORY: Gastroesophageal reflux disease. Cerebrovascular disease. Cardiovascular disease. Asthma. Diabetes. SURGICAL HISTORY: Appendectomy. Cholecystectomy. Hysterectomy. Cardiac surgery. ENCOUNTER: Subsequent ACUITY: 2 day PAIN SCORE: 0/10 LOCATION: Cranial TECHNIQUE: Multiplanar, multisequence MRI of the brain was performed without contrast. FINDINGS: There is no restricted diffusion evident. Very minimal scattered areas of high signal intensity are present in the periventricular white matter in a very nonspecific fashion. There is no parenchymal h emorrhage, acute infarction, mass lesion. There are no extraaxial fluid collections appreciated. Po sterior fossa is unremarkable. Midline 4th ventricle. CONCLUSION: Negative MRI of the brain. I do not see evidence for seizure focus. Jeremy Souza MD FACR on September 07, 2016 at 15:39 Board Certified Radiologist. This report was verified electronically.
[2016-09-07] MEDS ORDERED: LORazepam 2 MG/ML VIAL IV PUSH PRN (21:00)
--- NOTE | 2016-09-07 21:15 | MB ---
cc: LUCAS AMBROSIO M.D. DATE OF CONSULTATION 09/07/2016 REASON FOR CONSULTATION Seizure. HISTORY OF PRESENT ILLNESS Ms. Martinez is a 61-year-old female previously healthy until this weekend. Her states around Monday evening while in bed was having shaking activity, mainly tremulousness, occurred in her sleep as well. Apparently while she was in her primary care physician's office, she was being seen for asthma exacerbation, she had generalized seizure witnessed by the staff and was to the ER. She has had several of these seizures, about four additional seizures treated with Ativan. Since then has been loaded with Cerebyx. Her phenytoin level yesterday was 23.7. Apparently she had another episode today around 05:30. Her states that she stiffens up, loses consciousness, at times can feel they are coming on. Afterwards she is lethargic. She does have a history of head trauma with loss of consciousness 10 years ago. No other risk factors for seizures, however. PAST MEDICAL/SURGICAL HISTORY 1. Recent asthma exacerbation. 2. Rheumatoid arthritis. 3. Psoriatic arthritis. 4. Diabetes. 5. History of HSV. 6. Gastroesophageal reflux disease. 7. Asthma. 8. Diabetic neuropathy. 9. Migraine headaches. 10. Appendectomy. 11. Hysterectomy. ALLERGIES BEE STINGS. EGG ALLERGY. FLU VACCINE. SULFA. CURRENT MEDICATIONS 1. Cerebyx 100 mg q.8 hours. 2. Keppra which was started today 500 mg IV b.i.d. 3. Phenobarbital 80 mg IV q.12 hours. 4. Vancomycin. 5. Ceftriaxone. PHYSICAL EXAMINATION VITAL SIGNS: Blood pressure is 102/61, pulse of 96, respiratory rate 19, temperature 98 degrees. NEUROLOGIC: Higher cortical function - She is alert. There is no focal deficit on her examination. IMAGING STUDIES MRI of the brain is within normal limits. CT of the brain normal. EEG is normal. LABORATORY DATA Tox screen positive for Dilantin 23.7, otherwise negative. White count was 6600, hemoglobin 14.3, hematocrit 40.9%, platelet count 122,000. Sodium 141, potassium 3.8, chloride 106, CO2 22.6, BUN is 7, creatinine 0.86, GFR is 68, glucose 212, AST 35, ALT is 80. PT 10.2, INR 0.9. CSF: 0 WBCs or RBCs, glucose 105, protein 51. IMPRESSION Seizure versus pseudoseizure. RECOMMENDATIONS We will increase the Keppra dose to 500 mg IV q.6 hours, continue the current dose of Cerebyx and phenobarbital. We will check levels in the morning. If the patient continues having episodes, consider transferring to a facility where continuous EEG telemetry monitoring is available. MD JERO Stallings/ROSY /8:49 PM /9:00 PM
--- NOTE | 2016-09-07 21:39 | MB ---
cc: LUCAS AMBROSIO M.D. DATE OF CONSULTATION: 09/07/2016 REASON FOR CONSULTATION: ADDENDUM: After initially evaluating the patient, the patient had a typical episode according to her . I witnessed this as well. She began moaning, she began stiffening up in both upper and lower extremities. She spontaneously rolled onto her left side with asynchronous tremulous type of activity which did not appear to be tonic clonic at all. She turned to her left side, began lip smacking. She was called to but did not respond. She had to and fro movements of the arms. She had arching of her back, some degree of pelvic thrusting as well. The episode lasted probably one to two minutes after which she was able to answer questions. She could tell me what year it was and where she was. The appearance of the episode is very suggestive of pseudoseizures. The posturing and type of activity during the episode was very atypical for a grand mal seizure. Furthermore, she really had no post ictal state. She was able to answer questions appropriately including the year and the place. MD JERO Stallings/DIMITRY /9:13 PM /9:33 PM
[2016-09-07] MEDS: levETIRAcetam INJ 500 MG in SODIUM CHLORIDE 0.9% INJ 100 ML IV SCH (23:39)
[2016-09-08] VITALS (13 sets, daily range): BP systolic 83–120; BP diastolic 44–71; PULSE 82–95; RESP 14–26; TEMP 97.5–98.1; O2SAT 98–99
--- NOTE | 2016-09-08 05:35 | MG ---
cc: FATMATA DORSEY Lab No: Date: 09/07/2016 Age: Sex: F Race: EEG [id number] NOTE Patient noted to be asleep. Hyperventilation not performed. INDICATIONS A 60-year-old woman with A-fib, anxiety, fibromyalgia. MEDICATIONS 1. Phenobarbital. 2. Keppra. 3. Cerebyx. 4. Ceftriaxone. 5. Ativan. FINDINGS There are diffuse beta rhythms consistent with a medication effect. The recording overall shows a lot of those diffuse beta rhythms seen. Some muscle artifact occasionally is noted. There is no hemisphere asymmetry. Photic stimulation was performed without significant posterior driving. Occasionally some alpha waves are noted diffusely and bilateral. The patient appears to fall asleep and reach Stage II sleep but no epileptiform or seizure activity is seen. IMPRESSION Diffuse beta rhythms consistent with medication effect. Some normal Stage II sleep, otherwise a generally unremarkable recording. MD MIHAELA Ca/ROSY /12:00 AM /5:32 AM
[2016-09-08] MEDS: levETIRAcetam INJ 500 MG in SODIUM CHLORIDE 0.9% INJ 100 ML IV SCH (06:15)
[2016-09-08] MEDS: cefTRIAXone INJ 2,000 MG in SODIUM CHLORIDE 0.9% INJ 100 ML IV SCH (06:15)
[2016-09-08] MEDS: FOSPHENYTOIN SODIUM 100 MG PE/2 ML VIAL IV SCH (06:16)
[2016-09-08] MEDS: CHLORHEXIDINE GLUCONATE 2 % 1 PACK (2 CLOTHS)(taper/protocol) TOP SCH (06:17)
[2016-09-08] MEDS: INSULIN ASPART SUPPLEMENTAL SCALE SQ SCH (07:00)
[2016-09-08] MEDS ORDERED: VANCOMYCIN TROUGH XX ONE (07:45)
--- NOTE | 2016-09-08 07:55 | MB ---
cc: LUCAS AMBROSIO M.D. PROGRESS NOTE DATE 09/08/2016 Since the original dictation, I had an opportunity to speak with the certified technician specialist. Yesterday she had two EEGs on Ms. Juan and during the second EEG the patient had one of her typical episods. The EEG was normal with no epileptiform activity. The episode lasted several minutes. The patient had posturing, breath-holding spells, would follow commands during the episode at times and had no postictal state. Based on this, as well as the normal EEG during the episode, I do not believe that she needs to be referred for EEG telemetry as her episode was captured on the EEG and it was normal with no epileptiform activity. These episodes are pseudoseizures. There is no evidence for epileptogenic seizure. Therefore I would recommend discontinuation of the anticonvulsants, i.e. Cerebyx, Keppra, phenobarbital due to potential for side effects. Would also recommend psychiatry consultation. MD JERO Stallings/RSOY /7:30 AM /7:52 AM
[2016-09-08] MEDS: SODIUM CHLORIDE 0.9% FLUSH 5 ML FLUSH FLUSH SCH (09:01)
[2016-09-08] MEDS: SODIUM CHLOR 0.9% 1000 ML INJ 1,000 ML IV SCH (09:02)
--- NOTE | 2016-09-08 10:44 | HHI.DS ---
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 Apparently in the office she had a seizure witnessed by the staff and was sent urgently to the emergency room where she had for more seizures which were treated with Ativan and Cerebyx. There was no urinary incontinence and she did not bite her tongue. She has never had seizures before but says that last Monday her family said she had some tremors and jerking movements which they thought looked like a seizure. Patient this time says she feels ill and has felt ill for the last week. She's had increased fatigue without fever but has had some flushing. She does have a history of HSV and takes acyclovir as needed. Patient has not had any fevers or chills documented here and has no leukocytosis. There is some right lower extremity weakness that is new for the patient and the patient has been tachycardic here in the emergency room. There is no chest pain complaint. She did complain of a headache. Headache is in the back of her neck and radiates down her neck. She had history of migraines. CBC/BMP: 09/06/16 1420 09/06/16 1420 Significant Findings Laboratory Tests Test 09/06/16 09/06/16 09/06/16 09/07/16 14:20 16:36 21:50 14:21 Platelet Count 122 TH/MM3 (150-450) Estimat Glomerular Filtration 68 ML/MIN (>89) Rate Random Glucose 212 MG/DL (74-106) Alanine Aminotransferase 80 U/L (10-53) (ALT/SGPT) Urine Glucose (UA) 1000 OR GREATER mg/dL (NEG) Urine Ketones TRACE mg/dL (NEG) Phenytoin (Dilantin) Level 23.7 MCG/ML (10.0-20.0) CSF Glucose 105 MG/DL (40-80) CSF Total Protein 51.1 MG/DL (15.0-45.0) Imaging Last Impressions Lumbar Puncture Fluoroscopy 09/07/16 0000 Signed Impressions: Service Date/Time: Wednesday, September 07, 2016 14:14 - CONCLUSION: Uncomplicated fluoroscopically guided lumbar puncture with pressures as above. Clear CSF noted and sent to the lab. Aleksandr Nolasco Jr., MD Brain MRI 09/07/16 0000 Signed Impressions: Service Date/Time: Wednesday, September 07, 2016 14:56 - CONCLUSION: Negative MRI of the brain. I do not see evidence for seizure focus. Jeremy Souza MD FACR Head CT 09/06/16 0000 Signed Impressions: Service Date/Time: Tuesday, September 06, 2016 15:37 - CONCLUSION: Normal examination for a patient of this age. No significant change has occurred. Riley Villaseñor MD PE at Discharge GENERAL: Well-developed, well-nourished, in no acute distress. alert and orientated HEENT: Head is normocephalic without any lesions or masses noted. Facial features are symmetric. Eyes: Pupils equal round reactive to light. Extraocular muscles are intact. Conjunctivae were clear. NECK: Supple without any masses. Trachea midline no deviation. No JVD, CARDIAC: Regular rhythm, regular rate. S1/S2 are heard. No murmurs gallops or rubs. LUNGS: Clear to auscultation bilaterally. No wheeze, rhonchi or rales. No use of accessory muscles on inspiration or expiration. ABDOMEN: Soft, nontender. Nondistended. Bowel sounds heard in all 4 quadrants. No organomegaly or masses. Negative rebound, negative guarding EXTREMITIES: No edema, pulses are equal bilaterally. No cyanosis or clubbing NEUROLOGY: Mood and affect appear appropriate. Cranial nerves II through XII grossly intact. Moving all extremities, speech is clear Hospital Course Patient was admitted to the ICU and was placed on 3 seizure medications for strength. However she continued to have episodes. The episodes were witnessed by multiple physicians as well as ICU nurses. Episodes were atypical seizures. The patient did undergo an EEG during one of the episodes. This ruled out seizure. Neurology saw the patient and recommended to discontinue antibiotics. She has been seen by psychiatry this morning. The nurse gives me additional information that the patient's daughter who has IV drug problems recently moved down to the area and is living with her. Apparently also recently the patient' s son-in-law . The patient is cleared from a medical perspective for discharge home. I do recommend that she abstain from driving until the pseudoseizures subside. Pt Condition on Discharge: Stable Discharge Disposition: Discharge Home Discharge Time: > 30 minutes Discharge Instructions DIET: Follow Instructions for: Heart Healthy Diet Activities you can perform: Regular-No Restrictions Other Activity Instructions: No driving until cleared by PCP Barbara Pardo MD Sep 08, 2016 10:44
--- NOTE | 2016-09-08 10:56 | HHI.PR ---
Subjective Remarks Patient seen and examined today. Neurology recommendations were reviewed. Patient denies any recurrent seizure episodes since 9 PM last night. Objective Vitals Vital Signs Date Time Temp Pulse Resp B/P Pulse Ox O2 Delivery O2 Flow Rate FiO2 09/08/16 09:00 94 22 111/62 09/08/16 09:00 94 09/08/16 08:00 92 09/08/16 08:00 98.1 92 20 108/46 09/08/16 07:00 88 18 97/58 98 09/08/16 06:00 95 09/08/16 06:00 82 18 96/48 98 09/08/16 05:00 90 16 120/71 98 09/08/16 04:00 84 09/08/16 04:00 97.6 82 16 95/63 98 09/08/16 03:55 92 26 106/60 98 09/08/16 03:52 82 17 83/44 98 09/08/16 03:50 88 17 89/50 98 09/08/16 03:00 90 17 96/58 98 09/08/16 02:00 90 18 103/58 98 09/08/16 02:00 89 09/08/16 01:00 82 14 97/49 98 09/08/16 00:00 97.5 94 18 100/57 98 09/08/16 00:00 86 09/08/16 00:00 97.5 91 22 100/57 99 09/07/16 22:00 89 09/07/16 22:00 88 14 136/66 99 09/07/16 21:52 92 20 136/66 98 09/07/16 20:00 98.5 96 19 102/61 94 09/07/16 20:00 84 09/07/16 19:15 98 17 111/65 94 09/07/16 19:00 102 18 115/60 93 09/07/16 18:00 104 20 127/63 95 09/07/16 18:00 104 09/07/16 17:00 118 16 126/80 95 09/07/16 16:34 116 09/07/16 16:34 98.5 116 19 113/60 94 09/07/16 16:20 104 09/07/16 16:20 104 11 96/61 96 09/07/16 16:00 110 09/07/16 15:00 104 14 99/53 95 09/07/16 14:00 117 09/07/16 14:00 117 16 106/57 96 09/07/16 13:01 130 09/07/16 13:00 130 13 125/62 95 09/07/16 12:01 124 09/07/16 12:00 124 11 108/61 94 09/07/16 11:31 130 09/07/16 11:01 136 09/07/16 11:00 136 30 102/68 96 I/O 09/07/16 09/07/16 09/07/16 09/08/16 09/08/16 09/08/16 07:00 15:00 23:00 07:00 15:00 23:00 Intake Total 996 ml 1249 ml 882 ml 658 ml Output Total 950 ml 1450 ml 1150 ml 650 ml Balance 46 ml -201 ml -268 ml 8 ml Intake Oral 120 ml 240 ml 240 ml 0 ml IV Total 876 ml 1009 ml 642 ml 658 ml Output Urine Total 950 ml 1450 ml 1150 ml 650 ml Stool Total 0 ml 0 ml # Bowel Movements 1 0 Result Diagram: 09/06/16 1420 09/06/16 1420 Objective Remarks GENERAL: Well-developed, well-nourished, in no acute distress. alert and orientated HEENT: Head is normocephalic without any lesions or masses noted. Facial features are symmetric. Eyes: Pupils equal round reactive to light. Extraocular muscles are intact. Conjunctivae were clear. NECK: Supple without any masses. Trachea midline no deviation. No JVD, CARDIAC: Regular rhythm, regular rate. S1/S2 are heard. No murmurs gallops or rubs. LUNGS: Clear to auscultation bilaterally. No wheeze, rhonchi or rales. No use of accessory muscles on inspiration or expiration. ABDOMEN: Soft, nontender. Nondistended. Bowel sounds heard in all 4 quadrants. No organomegaly or masses. Negative rebound, negative guarding EXTREMITIES: No edema, pulses are equal bilaterally. No cyanosis or clubbing NEUROLOGY: Mood and affect appear appropriate. Cranial nerves II through XII grossly intact. Moving all extremities, speech is clear Procedures None Urinary Catheter: Yes Assessment to: Remove Vascular Central Line Catheter: No A/P Assessment and Plan New onset seizures, pseudoseizure per neurology CT scan does not indicate any acute abnormality MRI did not indicate any acute abnormality EEG indicates diffuse beta rhythm consistent with medication effect. Normal stage II sleep. Otherwise generally unremarkable recording. Repeat EEG during time of questionable seizure activity indicates no epileptiform or seizure activity. Indicates normal EEG Cerebyx, phenobarbital, Keppra and Ativan as needed for seizures has been discontinued by neurology Lumbar puncture was performed which did not indicate any encephalitis/ meningitis Discontinue Rocephin and vancomycin Neurology has evaluated the patient and states that patient having pseudoseizures and recommended discontinuation of seizure medication, psychiatry evaluation Asthma Continue bronchodilators as needed, recent hospitalization with acute exacerbation ([facility]) Diabetes type 2 Accu-Cheks with sliding scale insulin DVT prevention Subcutaneous Lovenox Written by Musa Pardhan PA-C, acting as scribe for Dr. Pardo on 09/08/16 at 1045. The documentation accurately reflects the work and decisions performed face-to- face by Dr. Pardo on 09/08/16 at 1045. Musa Pradhan Sep 08, 2016 10:56
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
[2016-09-09 09:13] LABS: HSV 1,PCR ND (())
[2016-09-12 19:54] LABS: CALIFORNIA ENCEPH AB IGG <1:4 (()); CALIFORNIA ENCEPH AB IGM <1:4 (()); EAST EQUINE ENCEPH AB IGG <1:4 (()); EAST EQUINE ENCEPH AB IGM <1:4 (()); ST LOUIS ENCEPH AB IGG <1:4 (()); ST LOUIS ENCEPH AB IGM <1:4 (())
== END 2016-09-08 11:50 | disposition home or self-care (01) | DRG 880 ==
LOC: PHED 14:06 → PHEDA 16:21 → PHICU 19:42
PROVIDERS: ADMIT Family Medicine; ATTEND Family Medicine
PROC: 009U3ZX Drainage of Spinal Canal, Percutaneous Approach, Diagnostic (ICD-10-PCS; principal; 2016-09-07)
DX: F44.5 Conversion disorder with seizures or convulsions (principal); E11.40 Type 2 diabetes mellitus with diabetic neuropathy, unspecified; D86.9 Sarcoidosis, unspecified; I48.91 Unspecified atrial fibrillation; L40.50 Arthropathic psoriasis, unspecified; G43.909 Migraine, unspecified, not intractable, without status migrainosus; F32.9 Major depressive disorder, single episode, unspecified; K21.9 Gastro-esophageal reflux disease without esophagitis; F41.9 Anxiety disorder, unspecified; M79.7 Fibromyalgia; M06.9 Rheumatoid arthritis, unspecified; J45.909 Unspecified asthma, uncomplicated; Z62.810 Personal history of physical and sexual abuse in childhood; Z65.8 Other specified problems related to psychosocial circumstances; Z79.4 Long term (current) use of insulin; Z86.73 Personal history of transient ischemic attack (TIA), and cerebral infarction without residual deficits; Z88.2 Allergy status to sulfonamides; Z88.7 Allergy status to serum and vaccine; Z91.012 Allergy to eggs; Z91.030 Bee allergy status
CPT/HCPCS: 62270; 70450; 70551; 77003; 80053; 80185; 80307; 80320; 81001; 82945; 82948; 84157; 85025; 85610; 86592; 86651; 86652; 86653; 86654; 87015; 87040; 87070; 87116; 87205; 87206; 87529; 87641; 89051; 93005; 95819; 96361; 96374; 96375; J0696; J1815; J1953; J2060; J2405; J2560; J3370; J7030; J7050; Q2009

== ENCOUNTER 2016-09-27 10:40 | Inpatient (IN) | payer MEDICARE, OTHER ==
[~2016-09-27] VITALS: Ht 154.9 cm; Wt 87.4 kg
[~2016-09-27 10:40] MED LIST changes: -ACYC-1 PO; +ACYC400T PO; -ALBU2.5I INH; -ALBU8I INH; +AMBI10TA PO; +ASPI81TA11 PO; -ATOR10 PO; -BENZ100 PO; -BISO5TAB5 PO; -CEFD300C PO; -CLOB-50 TOP; +CYMB60CA PO; -DAPA1TAB2 PO; +DEXI30CA PO; +DICL1GEL TOPICAL; -DOXY100 PO; -ECASA PO; -EPIP0.3I IM; +FLUT1SPR9 EACH NARE; -GABA100C4 PO; -GABA300C3 PO; +GLIM1TAB PO; +HUMA100I3 SQ; -HUMALOGP SQ; -HYCOS PO; +HYDR-3535 PO; -IBUP800T23 PO; +INFL100P; +LORA-392 PO; -LORA0.5T PO; +LYRI100C PO; +PRED10 PO; -PRED10PA PO; -SERT25TA83 PO; +SYMB160A INH; +VENTAER INH; -ZEGE20CA PO; -ZOLP10TA3 PO; -[UNRECOGNIZED DRUG - CODE] TOP
[2016-09-27] MEDS ORDERED: LORazepam 2 MG/ML VIAL ONE (10:49)
[2016-09-27 10:52] VITALS: BP 145/67; PULSE 130; RESP 17; TEMP 101.7; O2SAT 96
[2016-09-27 10:56] VITALS: RESP 17; O2SAT 97
[2016-09-27] MEDS ORDERED: LORazepam 2 MG/ML VIAL IV PUSH ONE ×3 (11:00→11:15)
[2016-09-27] MEDS: SODIUM CHLOR 0.9% 1000 ML INJ 1,000 ML IV SCH ×3 (11:00→21:16)
[2016-09-27 11:09] LABS: I-STAT POTASSIUM 4.3 MMOL/L (3.5-4.9); I-STAT SODIUM 136 MMOL/L (138-146)
[2016-09-27 11:10] LABS: AUTOMATED NEUTROPHIL # 5.8 TH/MM3 (1.8-7.7); BASOPHIL % 0.2 % (0.0-2.0); EOSINOPHIL # 0.1 TH/MM3 (0-0.4); EOSINOPHIL % 1.1 % (0.0-4.0); HEMATOCRIT 41.5 % (35.0-46.0); LYMPH % 33.2 % (9.0-44.0); LYMPHOCYTE # 3.5 TH/MM3 (1.0-4.8); MEAN CELL VOLUME 80.3 FL (80.0-100.0); MEAN CORPUSCULAR HEMOGLOBIN 27.9 PG (27.0-34.0); MEAN CORPUSCULAR HGB CONC 34.7 % (32.0-36.0); MONO % 9.9 % (0.0-8.0); NEUT % 55.6 % (16.0-70.0); PLATELET COUNT 227 TH/MM3 (150-450); RED BLOOD COUNT 5.17 MIL/MM3 (4.00-5.30); RED CELL DISTRIBUTION WIDTH 14.3 % (11.6-17.2); WHITE BLOOD COUNT 10.4 TH/MM3 (4.0-11.0)
[2016-09-27] MEDS ORDERED: VANCOMYCIN INJ 1,000 MG in SODIUM CHLOR 0.9% 250 ML INJ 250 ML IV ONE (11:15)
[2016-09-27] MEDS ORDERED: PIPERACIL-TAZO 3.375 GM PREMIX 50 ML IV ONE (11:15)
[2016-09-27] MEDS ORDERED: SODIUM CHLOR 0.9% 1000 ML INJ 1,000 ML IV ONE ×2 (11:15)
[2016-09-27] MEDS ORDERED: cefTRIAXone INJ 2,000 MG in SODIUM CHLORIDE 0.9% INJ 100 ML IV ONE (11:15)
[2016-09-27] MEDS ORDERED: FOSPHENYTOIN INJ 1,000 MGPE in SODIUM CHLORIDE 0.9% INJ 50 ML IV ONE (11:15)
[2016-09-27 11:17] LABS: BLOOD, URINE NEG (NEG); COMMENT (UR) CULT NOT INDICATED; CULTURE IF INDICATED CULT NOT INDICATED; GLUCOSE,URINE 1000 mg/dL (NEG); KETONE, URINE 40 mg/dL (NEG); NITRITE,URINE NEG (NEG); SQUAMOUS EPITHELIAL CELL URINE <1 /hpf (0-5); URINE COLOR YELLOW (YELLW/STRAW)
[2016-09-27 11:18] LABS: HEMO FLAGS AUTO DIFF
[2016-09-27 11:23] LABS: AMPHETAMINE, URINE NEG (NEG); BARBITURATES, URINE POS (NEG); COCAINE, URINE NEG (NEG)
[2016-09-27] MEDS ORDERED: SODIUM CHLORIDE 0.9% IV ONE (11:30)
[2016-09-27] MEDS ORDERED: ACYCLOVIR IV ONE (11:30)
[2016-09-27 11:32] LABS: ANION GAP 12 MEQ/L (5-15); AST (GOT) 92 U/L (15-37); BICARBONATE 19.7 MEQ/L (21.0-32.0); BLOOD UREA NITROGEN 8 MG/DL (7-18); CHLORIDE 103 MEQ/L (98-107); GLOMERULAR FILTRATION RATE 54 ML/MIN (>89); MAGNESIUM 2.1 MG/DL (1.5-2.5); POTASSIUM 4.2 MEQ/L (3.5-5.1); SODIUM (NA) 135 MEQ/L (136-145)
--- NOTE | 2016-09-27 11:32 | PD ---
HPI Chief Complaint: Seizure Time Seen by Provider: 10:49 Travel History International Travel<30 days: No Contact w/Intl Traveler<30days: No Traveled to known affect area: No History of Present Illness HPI 61-year-old female was started in the EMS for stroke alert. Patient has history of pseudoseizure, asthma, diabetes, psychosocial stressors. Patient was admitted on September 06, 2016 and discharged on September 08, 2016 with diagnosis of pseudoseizure. Patient was seen by neurologist Dr. Eckert and had normal EKG, especially during seizure episode. Patient was put on Cerebyx, Keppra and phenobarbital during past admission. Patient continued to have seizure despite those medications. Patient was diagnosed with pseudoseizure and seizure medications were stopped. Patient continued to have extremity shakings at home after discharge. Patient's states that extremity shaking get worse this morning and EMS was called. Patient was transported to the ED. On the way to the ED patient started having left sided facial drooping which lasted about 15-20 minutes and resolved completely. Patient has no facial drooping upon arrival to the ED. Patient having active seizure, generalized tonic-clonic seizure upon arrival. PFSH Past Medical History Hx Anticoagulant Therapy: Yes Arthritis: Yes (PSORIATIC) Asthma: Yes Autoimmune Disease: Yes (psoriosis, fibromyalgia) Anxiety: Yes Depression: Yes Heart Rhythm Problems: Yes (afib) Cancer: No Cardiovascular Problems: Yes High Cholesterol: Yes Chest Pain: Yes Congestive Heart Failure: No COPD: No Cerebrovascular Accident: Yes (2 TIA, 2008, 2015) Diabetes: Yes (2014) Patient Takes Glucophage: No Endocrine: Yes Fibromyalgia: Yes Gastrointestinal Disorders: Yes GERD: Yes Genitourinary: No Headaches: Yes Hiatal Hernia: No Hypertension: No Immune Disorder: No Implanted Vascular Access Dvce: Yes (LOOP RECORDER) Musculoskeletal: Yes (CERVICAL FISION DISKECTOMY CAPAL TUNNEL) Neurologic: Yes Psychiatric: Yes Reproductive: No Respiratory: Yes Migraines: Yes Myocardial Infarction: No Seizures: Yes (this admit 09/06) Sleep Apnea: No Thyroid Disease: No Ulcer: No Past Surgical History Abdominal Surgery: Yes (gallbladder, apx) AICD: No Appendectomy: Yes Arteriovenous Shunt: No Body Medical Devices: heart recorder Cardiac Surgery: Yes (cath;loop recorder) Cholecystectomy: Yes Ear Surgery: No Endocrine Surgery: No Eye Surgery: No Genitourinary Surgery: No Gynecologic Surgery: Yes (hysterectomy) Hysterectomy: Yes Insulin Pump: No Joint Replacement: No Neurologic Surgery: No Oral Surgery: Yes (T&A) Pacemaker: No Thoracic Surgery: No Tonsillectomy: Yes Other Surgery: Yes Social History Alcohol Use: No Tobacco Use: No Substance Use: No Allergies-Medications (Allergen,Severity, Reaction): Coded Allergies: Bee Sting (Verified Allergy, Severe, Anaphylaxis, 09/27/16) Egg Allergy (Verified Allergy, Severe, SWELLING, 09/27/16) Flu Vaccine (Verified Allergy, Severe, Anaphylaxis, 09/27/16) Sulfa (Verified Allergy, Unknown, RASH, 09/27/16) Reported Meds & Prescriptions Reported Meds & Active Scripts Active Reported Ambien (Zolpidem Tartrate) 10 Mg Tab 10 Mg PO HS PRN Voltaren Topical (Diclofenac Topical) 1% Gel 1 Applic TOPICAL QID Ventolin Hfa 18 GM Inh (Albuterol Sulfate) 90 Mcg/Act Aer 2 Puff INH Q4-6H PRN Symbicort Inh (Budesonide/Formoterol Fumarate) 160-4.5 Mcg/Act Aero 1 Puff INH Q12HR Imitrex (Sumatriptan Succinate) 100 Mg Tab 100 Mg PO ONCE PRN If a satisfactory response has not been obtained at 2 hours, a second dose may be administered Remicade Inj (Infliximab) 100 Mg Inj [id number] Phenergan (Promethazine HCl) 25 Mg Tab 25 Mg PO PRN Prednisone 10 Mg Tab 10 Mg PO BID Lyrica (Pregabalin) 100 Mg Cap 100 Mg PO BID Ativan (Lorazepam) 0.5 Mg Tab 0.5 Mg PO BID PRN Lantus Inj (Insulin Glargine) 1,000 Unit/10 Ml Vial 20 Units SQ HS Lortab (Hydrocodone-Acetaminophen) 10-325 Mg Tab 1 Tab PO Q6H PRN Humalog Kwikpen Pen Inj (Insulin Lispro (Human) Inj) 300 Unit/3 Ml Pen 1 Units SQ DIRECTED Glimepiride 1 Mg Tab 1 Mg PO DAILY Take with breakfast or first main meal Flonase Allergy Relief Children Nasal [place] (Fluticasone Nasal [place]) 50 Mcg/ Act [place] 1 [place] EACH NARE DAILY 50 mcg/spray Dexilant (Dexlansoprazole) 30 Mg Cap 30 Mg PO DAILY Cymbalta DR (Duloxetine HCl) 60 Mg Capdr 60 Mg PO DAILY Aspirin EC (Aspirin) 81 Mg Tabdr 81 Mg PO DAILY Acyclovir 400 Mg Tab 400 Mg PO TID PRN Review of Systems General / Constitutional: No: Fever Eyes: No: Visual changes HENT: Positive: Headaches Cardiovascular: No: Chest Pain or Discomfort Respiratory: No: Shortness of Breath Gastrointestinal: No: Abdominal Pain Genitourinary: No: Dysuria Musculoskeletal: No: Pain Skin: No Rash Neurologic: Positive: Seizures, No: Weakness Psychiatric: No: Depression Endocrine: No: Polydipsia Hematologic/Lymphatic: No: Easy Bruising Physical Exam Narrative GENERAL: Well-nourished, well-developed patient. SKIN: Warm and dry. HEAD: Normocephalic. EYES: No scleral icterus. No injection or drainage. Pupils 3 mm equal reactive. NECK: Supple, trachea midline. No JVD or lymphadenopathy. CARDIOVASCULAR: Tachycardia rate and rhythm without murmurs, gallops, or rubs. RESPIRATORY: Breath sounds equal bilaterally. No accessory muscle use. GASTROINTESTINAL: Abdomen soft, non-tender, nondistended. MUSCULOSKELETAL: No cyanosis, or edema. BACK: Nontender without obvious deformity. No CVA tenderness. Neurologic exam: Patient arrived to the ED in active seizure with generalized clonic tonic seizure. Data Data Last Documented VS Vital Signs Date Time Temp Pulse Resp B/P Pulse Ox O2 Delivery O2 Flow Rate FiO2 09/27/16 11:01 137 17 97 Nasal Cannula 2 09/27/16 10:52 101.7 145/67 Orders Lorazepam Inj (Ativan Inj) (09/27/16 11:00) Lorazepam Inj (Ativan Inj) (09/27/16 11:00) Lorazepam Inj (Ativan Inj) (09/27/16 10:49) Electrocardiogram (09/27/16 10:50) Complete Blood Count With Diff (09/27/16 10:50) Comprehensive Metabolic Panel (09/27/16 10:50) Prothrombin Time / Inr (Pt) (09/27/16 10:50) Act Partial Throm Time (Ptt) (09/27/16 10:50) Urinalysis - C+S If Indicated (09/27/16 10:50) Magnesium (Mg) (09/27/16 10:50) I-Stat Profile (09/27/16 10:50) I-Stat Creatinine (09/27/16 10:50) Thyroid Stimulating Hormone (09/27/16 10:50) Phosphorus (Po4) (09/27/16 10:50) Chest, Single Ap (09/27/16 10:50) Ct Brain W/O Iv Contrast(Rout) (09/27/16 10:50) Iv Access Insert/Monitor (09/27/16 10:50) Ecg Monitoring (09/27/16 10:50) Oximetry (09/27/16 10:50) Urinary Catheter Insert/Apply (09/27/16 10:50) Drug Screen, Random Urine (09/27/16 10:50) Alcohol (Ethanol) (09/27/16 10:50) Sodium Chlor 0.9% 1000 Ml Inj (Ns 1000 M (09/27/16 11:00) Fosphenytoin Inj (Cerebyx Inj) (09/27/16 11:15) Blood Culture (09/27/16 11:05) Lactic Acid (09/27/16 11:05) Sodium Chlor 0.9% 1000 Ml Inj (Ns 1000 M (09/27/16 11:15) Sodium Chlor 0.9% 1000 Ml Inj (Ns 1000 M (09/27/16 11:15) Ceftriaxone Inj (Rocephin Inj) (09/27/16 11:15) Piperacil-Tazo 3.375 Gm Premix (Zosyn 3. (09/27/16 11:15) Vancomycin Inj (Vancomycin Inj) (09/27/16 11:15) Lumbar Puncture (09/27/16 ) Vital Signs (Adult) .On admission (09/27/16 11:12) ^ Notify Radiology (09/27/16 11:12) Diet Npo (09/27/16 Lunch) Lorazepam Inj (Ativan Inj) (09/27/16 11:15) Acyclovir Inj (Zovirax Inj) (09/27/16 11:30) Labs Laboratory Tests Test 09/27/16 09/27/16 09/27/16 10:45 11:00 11:20 White Blood Count 10.4 TH/MM3 Red Blood Count 5.17 MIL/MM3 Hemoglobin 14.4 GM/DL Bedside Hemoglobin 14.3 G/DL Hematocrit 41.5 % Bedside Hematocrit 42.0 % Mean Corpuscular Volume 80.3 FL Mean Corpuscular Hemoglobin 27.9 PG Mean Corpuscular Hemoglobin 34.7 % Concent Red Cell Distribution Width 14.3 % Platelet Count 227 TH/MM3 Mean Platelet Volume 9.3 FL Neutrophils (%) (Auto) 55.6 % Lymphocytes (%) (Auto) 33.2 % Monocytes (%) (Auto) 9.9 % Eosinophils (%) (Auto) 1.1 % Basophils (%) (Auto) 0.2 % Neutrophils # (Auto) 5.8 TH/MM3 Lymphocytes # (Auto) 3.5 TH/MM3 Monocytes # (Auto) 1.0 TH/MM3 Eosinophils # (Auto) 0.1 TH/MM3 Basophils # (Auto) 0.0 TH/MM3 CBC Comment AUTO DIFF Differential Comment AUTO DIFF CONFIRMED Prothrombin Time 11.0 SEC Prothromb Time International 1.0 RATIO Ratio Activated Partial 22.0 SEC Thromboplast Time Bedside Sodium 136 MMOL/L Sodium Level 135 MEQ/L Bedside Potassium 4.3 MMOL/L Potassium Level 4.2 MEQ/L Bedside Chloride 104 MMOL/L Chloride Level 103 MEQ/L Carbon Dioxide Level 19.7 MEQ/L Anion Gap 12 MEQ/L Bedside Blood Urea Nitrogen 8 MG/DL Blood Urea Nitrogen 8 MG/DL Creatinine 1.04 MG/DL Bedside Creatinine 0.6 MG/DL Estimat Glomerular Filtration 54 ML/MIN Rate Bedside Glucose 286 MG/DL Random Glucose 281 MG/DL Calcium Level 9.0 MG/DL Phosphorus Level 1.7 MG/DL Magnesium Level 2.1 MG/DL Total Bilirubin 0.5 MG/DL Aspartate Amino Transf 92 U/L (AST/SGOT) Alanine Aminotransferase 112 U/L (ALT/SGPT) Alkaline Phosphatase 118 U/L Total Protein 7.9 GM/DL Albumin 4.3 GM/DL Thyroid Stimulating Hormone 1.360 uIU/ML 3rd Gen Ethyl Alcohol Level LESS THAN 3 MG/DL Urine Color YELLOW Urine Turbidity CLEAR Urine pH 6.0 Urine Specific [place] 1.014 Urine Protein TRACE mg/dL Urine Glucose (UA) 1000 mg/dL Urine Ketones 40 mg/dL Urine Occult Blood NEG Urine Nitrite NEG Urine Bilirubin NEG Urine Urobilinogen LESS THAN 2.0 MG/DL Urine Leukocyte Esterase NEG Urine RBC 1 /hpf Urine WBC LESS THAN 1 /hpf Urine Squamous Epithelial <1 /hpf Cells Microscopic Urinalysis Comment CULT NOT INDICATED Urine Opiates Screen NEG Urine Barbiturates Screen POS Urine Amphetamines Screen NEG Urine Benzodiazepines Screen POS Urine Cocaine Screen NEG Urine Cannabinoids Screen NEG Lactic Acid Level 4.1 mmol/L MDM Medical Decision Making Medical Screen Exam Complete: Yes Emergency Medical Condition: Yes Medical Record Reviewed: Yes Interpretation(s) 12:12 PM. Chest x-ray shows no acute consolidation. CBC within normal limit. Sodium 135. Creatinine 1.04. Bicarbonate 19.7. Lactic acid 4.1. Glucose 281. AST 92. ALT 112. Alkaline phosphatase 118. TSH normal. Urine drug screen positive of barbiturates and benzodiazepine. UA is negative except positive for glucose Differential Diagnosis Differential diagnosis including pseudoseizure, seizure, encephalitis, electrolyte abnormality. Narrative Course 61-year-old female with fever, generalized tonic clonic seizure, transient left facial drooping. History of pseudoseizure. Normal EEG during seizure episodes in the past. Stroke alert was called however was downgraded to seizure. I spoke with Dr. Eckert, patient's neurologist. Advised CT of the brain and Cerebyx IV and Ativan as needed for seizure. Patient has fever today. Rule out meningitis. Rocephin 2 g IV. Zosyn 3.375 g IV. Vancomycin 1 g IV. Zovirax 10 mg/kg IV. Normal saline solution 2 L IV bolus. Pending CT we'll attempt for LP. Diagnosis Primary Impression: Recurrent seizures Additional Impression: Fever Qualified Code: R50.9 - Fever, unspecified fever cause Gianfranco Olmedo MD Sep 27, 2016 11:32
[2016-09-27 11:42] LABS: ALKALINE PHOSPHATASE 118 U/L (45-117); ALT (GPT) 112 U/L (10-53); TOTAL BILIRUBIN ADULT 0.5 MG/DL (0.2-1.0)
[2016-09-27 11:56] LABS: SCAN/DIFF AUTO DIFF CONFIRMED
--- NOTE | 2016-09-27 11:59 | RADRPT ---
EXAM DATE/TIME: 09/27/2016 11:17 [facility] COMPARISON: CHEST SINGLE AP, September 18, 2015, 12:19. INDICATIONS : Shortness of breath. MEDICAL HISTORY : Seizures. SURGICAL HISTORY : Loop recorder. Coronary artery stent. Cervical fusion ENCOUNTER: Initial ACUITY: 1 day PAIN SCORE: 0/10 LOCATION: Bilateral chest FINDINGS: Portable AP view of the chest demonstrates a normal-sized cardiac silhouette. The report type device overlies the left chest. Lungs are underinflated. No effusion, consolidation, or pneumothorax is iden tified. Bones and soft tissues demonstrate no acute finding. CONCLUSION: Underinflated examination. No acute finding is identified. Bismark Lord MD on September 27, 2016 at 11:53 Board Certified Radiologist. This report was verified electronically.
--- NOTE | 2016-09-27 12:25 | RADRPT ---
EXAM DATE/TIME: 09/27/2016 11:59 [facility] COMPARISON: CT BRAIN W/O CONTRAST, September 06, 2016, 15:37. INDICATIONS : Seizure today. RADIATION DOSE: 56.36 CTDIvol (mGy) MEDICAL HISTORY : Arthritis. Cardiovascular disease A fib,Diabetes,TIA SURGICAL HISTORY : Appendectomy. Cholecystectomy.Hysterectomy. ENCOUNTER: Initial ACUITY: 1 day PAIN SCALE: 0/10 LOCATION: cranial TECHNIQUE: Multiple contiguous axial images were obtained of the head. Using automated exposure control and adj ustment of the mA and/or kV according to patient size, radiation dose was kept as low as reasonably a chievable to obtain optimal diagnostic quality images. FINDINGS: CEREBRUM: The ventricles are normal for age. No evidence of midline shift, mass lesion, hemorrhage or acute in farction. No extra-axial fluid collections are seen. POSTERIOR FOSSA: The cerebellum and brainstem are intact. The 4th ventricle is midline. The cerebellopontine angle i s unremarkable. EXTRACRANIAL: The visualized portion of the orbits is intact. SKULL: The calvaria is intact. No evidence of skull fracture. CONCLUSION: No acute intracranial disease. Juan C Bhandari MD on September 27, 2016 at 12:23 Board Certified Radiologist. This report was verified electronically.
[2016-09-27] MEDS ORDERED: ALPR.5 PO (12:42)
--- NOTE | 2016-09-27 13:21 | MB ---
cc: LUCAS AMBROSIO M.D. DATE OF CONSULTATION: 09/27/2016 REASON FOR CONSULTATION Stroke Alert and seizure. HISTORY OF PRESENT ILLNESS Ms. Martinez is a 61-year-old female well-known to me from her recent admission to [facility] with seizure-like episodes. The patient was in her usual health until this morning. She began having generalized shaking activity. Her states that initially her eyes were open and she states that she was aware of this initially but then lost consciousness. She was not coming out of it so her called [facility] and they arrived at the scene promptly where they witnessed her to be having generalized jerking activity. She was brought to the hospital. She developed a facial droop on the left side en route to the ED and therefore a Stroke Alert was called because of the focal symptomatology. The facial droop, however, resolved after about 15 or 20 minutes. She had another episode in the ER which appeared to be a generalized tonic-clonic seizure with generalized tonic-clonic activity. Dr. Olmedo checked the muscle tone and there was increased tone and it appeared to be a generalized seizure. She was unconscious, was having foaming at the mouth as well. Following this the patient was very lethargic. Apparently was able to answer questions but was very lethargic. She received Ativan, a total of 4 mg, with cessation and has been loaded with Cerebyx. She has also noted to be febrile with a temperature of 101 degrees. At the present time she is alert and states she does have a headache. She has a history of possible pseudoseizures. She was admitted to the hospital recently. At that time I did witness some of the patient's episodes which appeared to be very atypical for epileptiform seizures. She had normal EEG at the time. During one of her episodes she was having an EEG which was within normal limits with no evidence of any epileptiform activity. She was initially on three anticonvulsants, phenytoin, Keppra and phenobarbital but continued having episodes at the last admission. Because of the probability of pseudoseizures I did recommend that she come off these medications due to potential side effects. She did have a psychiatry consult as well which is reviewed showing significant anxiety. She has no previous history of seizure. PAST MEDICAL/SURGICAL HISTORY 1. Psoriasis. 2. Fibromyalgia. 3. Psoriatic arthritis. 4. History of TIA in 2008 and 2015. 5. Loop recorder in place. 6. Cervical fusion. 7. Carpal tunnel surgery in the past. 8. Hysterectomy. 9. Tonsillectomy. 10.Diabetes. 11.Diabetic neuropathy. 12.History of migraine headaches. 13.Appendectomy. 14.Cholecystectomy. ALLERGIES 1. BEE STINGS 2. EGG ALLERGY. 3. FLU VACCINE. 4. SULFA. MEDICATIONS Medications currently are: 1. Acyclovir 400 mg p.o. t.i.d. for shingles. 2. Aspirin 81 mg daily. 3. Cymbalta 60 mg daily. 4. Dexilant 30 mg daily. 5. Fluticasone nasal spray. 6. Glimepiride 1 mg daily. 7. Insulin. 8. Hydrocodone as needed for pain. 9. Lorazepam 0.5 mg b.i.d. for anxiety. 10.Lyrica 100 mg daily for fibromyalgia pain. 11.Prednisone 10 mg daily. 12.Promethazine. 13.Remicade injection every eight weeks. 14.Sumatriptan as needed for migraine. 15.Albuterol. 16.Diclofenac. 17.Zolpidem. 18.Symbicort. NEUROLOGIC EXAMINATION VITAL SIGNS: Temperature 101.7 degrees rectally, pulse 130, respiratory rate 17, blood pressure 145/67, pulse ox 96%. HIGHER CORTICAL FUNCTION: At the present time she is alert, she is oriented x3. She answers questions appropriately. Her remote memory is normal. She tells me she is from [place]. Recent memory normal. There is no neglect. CRANIAL NERVES: Intact. MOTOR EXAM: 5/5 strength of all major groups in both upper extremities. She is complaining of some weakness of the right leg diffusely at 4+/5, left leg 5/5. Reflexes are 2+. No Babinski sign present. IMAGING Chest x-ray: Under inflated exam. No acute findings. CT brain pending. LABORATORY DATA White count 10,400, hemoglobin 14.4, hematocrit 41.5%, platelet count 227. PT 11, INR 1, APTT 22. Sodium 136, potassium 4.3, chloride 104, CO2 19.7, BUN 8, creatinine 1.04, GFR 54, glucose 281, lactic acid 4.1, calcium 9.0, phosphorus 1.7, AST 92, ALT 112, alkaline phosphatase 118. TSH 1.36. Tox screen positive for benzodiazepines, barbiturates. Urinalysis: pH is 6, specific gravity 1.014, glucose 1000, ketones 40. IMPRESSION Seizures versus pseudoseizures. RECOMMENDATIONS Will get a CT of the brain and also order a stat. EEG. I would like to get a stat. prolactin level as well which can be elevated in true seizures. Continue her on Cerebyx. Place her under seizure precautions. She is going to be a having a lumbar puncture because of the fever and headaches, although at the present time there is no nuchal rigidity. I would like to repeat the MRI of the brain as well. There is no clear evidence for stroke at the present time. The facial droop has resolved, therefore the patient is not a candidate for IV TPA. If the patient were to continue having episodes, consider the possibility of transferring for inpatient video EEG telemetry monitoring. MD JERO Stallings/ANNE /12:06 PM /1:00 PM
[2016-09-27 13:48] VITALS: BP 124/58; PULSE 110; RESP 18; O2SAT 100
[2016-09-27] MEDS ORDERED: SODIUM CHLOR 0.9% 1000 ML INJ 1,000 ML IV SCH (13:49)
[2016-09-27] MEDS ORDERED: SODIUM CHLORIDE 0.9% FLUSH 5 ML FLUSH IVF PRN (14:00)
[2016-09-27] MEDS ORDERED: Vancomycin Consult Pharmacy 1 EA OTHER SCH (14:00)
[2016-09-27] MEDS: FOSPHENYTOIN SODIUM 100 MG PE/2 ML VIAL IV SCH ×2 (14:00→21:16)
--- NOTE | 2016-09-27 14:21 | HHI.HP ---
HPI Service Family Medicine Primary Care Physician Unknown Admission Diagnosis seizure. Fever. Diagnoses: International Travel<30 Days: No Contact w/Intl Traveler<30days: No Known Affected Area: No History of Present Illness 61-year-old female with a past medical history significant for recent hospitalization, discharged 09/08/16 with a diagnosis of pseudoseizures, who presents to the emergency department after having a witnessed seizure-like episode this morning. The patient was in her usual state of health which she describes as having tremulous activity consistently at baseline when she started shaking all over in her chair. The patient does have memory of the event and did not lose continence of bowel or bladder. She did not bite her tongue but states she did bite the inside of her right cheek. The patient says after the event her vision was blurry and she had a headache. Her called 911 and in the ambulance on the way to the hospital the EMT noted left- sided facial droop that had resolved by the time the patient arrived in the emergency department. Stroke code was initially called however this was downgraded to seizure activity. The patient was seen by neurology, to whom she is well known, and EEG and MRI were ordered. The patient was started on fosphenytoin. She also was given 6 mg of Ativan in the emergency department. On her arrival to the ED, the patient had a rectal temperature of 101.7. She did not have any nuchal rigidity on exam although does complain of a headache. She was started on vancomycin, Zosyn, Rocephin and acyclovir. Lumbar puncture was ordered. In the emergency department the patient is able to give me a complete history despite having 2 seizure-like episodes during my interview. During these episodes her body contracts and shakes. The episodes then resolved and the patient returns to her baseline mentation. (Tonia Pruitt MD R3) Review of Systems Other Denies fever or chills Positive blurry vision. Denies otorrhea, rhinorrhea Denies sore throat and cough No palpitations or shortness of breath. Patient does endorse chest heaviness occurring over the past 2 nights. No abdominal pain Positive intermittent nausea/vomiting. 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 Fibromyalgia Rheumatoid arthritis Psoriatic arthritis Migraines Past Surgical History Hysterectomy Cholecystectomy Appendectomy Right shoulder surgery Cervical fusion Reported Medications Reported Meds & Active Scripts Active Reported Xanax (Alprazolam) 0.5 Mg Tab 0.5 Mg PO Q12HR PRN Imitrex (Sumatriptan Succinate) 100 Mg Tab 100 Mg PO ONCE PRN If a satisfactory response has not been obtained at 2 hours, a second dose may be administered Remicade Inj (Infliximab) 100 Mg Inj [id number] Prednisone 10 Mg Tab 10 Mg PO BID Lyrica (Pregabalin) 100 Mg Cap 100 Mg PO BID Lantus Inj (Insulin Glargine) 1,000 Unit/10 Ml Vial 20 Units SQ HS Lortab (Hydrocodone-Acetaminophen) 10-325 Mg Tab 1 Tab PO Q6H PRN Humalog Kwikpen Pen Inj (Insulin Lispro (Human) Inj) 300 Unit/3 Ml Pen 1 Units SQ DIRECTED Glimepiride 1 Mg Tab 1 Mg PO DAILY Take with breakfast or first main meal Dexilant (Dexlansoprazole) 30 Mg Cap 30 Mg PO DAILY Cymbalta DR (Duloxetine HCl) 60 Mg Capdr 60 Mg PO DAILY Aspirin EC (Aspirin) 81 Mg Tabdr 81 Mg PO DAILY (Tonia Pruitt MD R3) Allergies: Coded Allergies: Bee Sting (Verified Allergy, Severe, Anaphylaxis, 09/27/16) Egg Allergy (Verified Allergy, Severe, SWELLING, 09/27/16) Flu Vaccine (Verified Allergy, Severe, Anaphylaxis, 09/27/16) Sulfa (Verified Allergy, Unknown, RASH, 09/27/16) Family History Brother with a seizure disorder of an ME at age 45. Dad at 93 of dementia. Mom at 67 of lung cancer. Social History No tobacco. Quit smoking 22 years ago. Occasional alcohol. Denies marijuana or other illicit drugs. (Tonia Pruitt MD R3) Physical Exam Vital Signs Vital Signs Date Time Temp Pulse Resp B/P Pulse Ox O2 Delivery O2 Flow Rate FiO2 09/27/16 13:48 110 18 124/58 100 Room Air 09/27/16 11:01 137 17 97 Nasal Cannula 2 09/27/16 10:56 17 97 Nasal Cannula 2 09/27/16 10:52 101.7 130 17 145/67 96 Physical Exam Gen.: No acute distress. Generalized shaking. Head: Normocephalic. Atraumatic. EENT: Pupils equal round and minimally reactive to light. Nose without drainage. Airway intact. Throat without injection. No nuchal rigidity. Cardiovascular: Regular rate and rhythm. No murmurs, rubs or gallops. Respiratory: Lungs clear to auscultation bilaterally. No wheezes or rhonchi. Abdomen: Soft, mildly tender to deep palpation in all 4 quadrants, nondistended. No peritoneal signs. Musculoskeletal: 4/5 strength in right upper extremity. Right lower extremity patient is unable to lift off the bed. 5/5 strength left lower extremity Skin: No obvious rashes or erythema. Neuro: Sensory and motor grossly intact. Weakness as above. Cranial nerves II through XII intact. Psych: Patient is lucid between episodes and appropriate during the interview Laboratory Laboratory Tests Test 09/27/16 09/27/16 09/27/16 10:45 11:00 11:20 White Blood Count 10.4 Red Blood Count 5.17 Hemoglobin 14.4 Bedside Hemoglobin 14.3 Hematocrit 41.5 Bedside Hematocrit 42.0 Mean Corpuscular Volume 80.3 Mean Corpuscular Hemoglobin 27.9 Mean Corpuscular Hemoglobin 34.7 Concent Red Cell Distribution Width 14.3 Platelet Count 227 Mean Platelet Volume 9.3 Neutrophils (%) (Auto) 55.6 Lymphocytes (%) (Auto) 33.2 Monocytes (%) (Auto) 9.9 Eosinophils (%) (Auto) 1.1 Basophils (%) (Auto) 0.2 Neutrophils # (Auto) 5.8 Lymphocytes # (Auto) 3.5 Monocytes # (Auto) 1.0 Eosinophils # (Auto) 0.1 Basophils # (Auto) 0.0 CBC Comment AUTO DIFF Differential Comment AUTO DIFF CONFIRMED Prothrombin Time 11.0 Prothromb Time International 1.0 Ratio Activated Partial 22.0 Thromboplast Time Bedside Sodium 136 Sodium Level 135 Bedside Potassium 4.3 Potassium Level 4.2 Bedside Chloride 104 Chloride Level 103 Carbon Dioxide Level 19.7 Anion Gap 12 Bedside Blood Urea Nitrogen 8 Blood Urea Nitrogen 8 Creatinine 1.04 Bedside Creatinine 0.6 Estimat Glomerular Filtration 54 Rate Bedside Glucose 286 Random Glucose 281 Calcium Level 9.0 Phosphorus Level 1.7 Magnesium Level 2.1 Total Bilirubin 0.5 Aspartate Amino Transf 92 (AST/SGOT) Alanine Aminotransferase 112 (ALT/SGPT) Alkaline Phosphatase 118 Total Protein 7.9 Albumin 4.3 Thyroid Stimulating Hormone 1.360 3rd Gen Ethyl Alcohol Level LESS THAN 3 Urine Color YELLOW Urine Turbidity CLEAR Urine pH 6.0 Urine Specific [place] 1.014 Urine Protein TRACE Urine Glucose (UA) 1000 Urine Ketones 40 Urine Occult Blood NEG Urine Nitrite NEG Urine Bilirubin NEG Urine Urobilinogen LESS THAN 2.0 Urine Leukocyte Esterase NEG Urine RBC 1 Urine WBC LESS THAN 1 Urine Squamous Epithelial <1 Cells Microscopic Urinalysis Comment CULT NOT INDICATED Urine Opiates Screen NEG Urine Barbiturates Screen POS Urine Amphetamines Screen NEG Urine Benzodiazepines Screen POS Urine Cocaine Screen NEG Urine Cannabinoids Screen NEG Lactic Acid Level 4.1 Date/Time Procedure Status Source Growth 09/27/16 11:20 Aerobic Blood Culture Received Blood Peripheral Pending 09/27/16 11:20 Anaerobic Blood Culture Received Blood Peripheral Pending (Tonia Pruitt MD R3) Result Diagram: 09/27/16 1045 09/27/16 1045 Assessment and Plan Assessment and Plan 61-year-old female recently diagnosed with pseudoseizures after a complete workup in [facility] presents to the emergency department with repeat generalized clonic tonic seizure versus pseudoseizure with elevated lactic acid and headaches, febrile with concern for meningitis. 1. Possible meningitis Continue acyclovir, vancomycin, Zosyn, Rocephin Lumbar puncture and cell studies pending 2. Sepsis Patient febrile and tachycardic with possible encephalitis/meningitis. Lactic acid elevated to 4.1 IV fluid hydration status post 2 L bolus in the ED, now on 1 25 cc/hour Antibiotics as above 3. Generalized clonic tonic seizure with multiple repeat episodes in the emergency department Seizure versus pseudoseizure Neurology consulted, appreciate their recommendations Head CT negative, MRI pending, EEG pending Patient started on fosphenytoin Ativan when necessary 4. Diabetes mellitus Holding home Glimepiride Continue Lantus 20 units daily at bedtime Sliding scale insulin 5. Fibromyalgia, rheumatoid arthritis, psoriatic arthritis Continue home medications: Cymbalta, prednisone, Lyrica 7. FEN Fluids normal saline at 1 25 cc/hour Electrolytes within normal limits, replete when necessary Nutrition nothing by mouth until LP Holding pharmacologic anticoagulation given patient's significant history for fall risk and need for LP Code Status Full code (Tonia Pruitt MD R3) Attending Attestation The patient has been seen and examined. The chart and all resident notes have been reviewed. I agree that inpatient care is appropriate and that a two midnight stay is expected for the reasons documented in the resident history and physical. I have discussed this with the resident and certify the resident s order for inpatient admission. (Sharon Slaughter MD) Problem List: (1) Seizure Status: Acute (2) Pseudoseizures Status: Chronic (3) Fever Status: Acute (4) Fibromyalgia Status: Chronic (5) DM2 (diabetes mellitus, type 2) Status: Chronic (6) Psoriatic arthritis Status: Chronic (7) Meningitis Status: Acute (Tonia Pruitt MD R3) Physician Certification 2 Midnight Certification Type: Admission for Inpatient Services Order for Inpatient Services The services are ordered in accordance with Medicare regulations or non- Medicare payer requirements, as applicable. In the case of services not specified as inpatient-only, they are appropriately provided as inpatient services in accordance with the 2-midnight benchmark. Estimated LOS (days): 2 2 days is the estimated time the patient will need to remain in the hospital, assuming treatment plan goals are met and no additional complications. Post-Hospital Plan: Not yet determined (Tonia Pruitt MD R3) Problem Qualifiers (1) Fever: Qualified Code: R50.9 - Fever, unspecified fever cause Tonia Pruitt MD R3 Sep 27, 2016 14:21 Sharon Slaughter MD Sep 28, 2016 16:50
--- NOTE | 2016-09-27 14:36 | MG ---
cc: TAINA BUCKLEY M.D. Lab No:[id number] Date: 09/27/2016 Age: 61 Sex: F Race: DATE OF : 1955 61-year-old patient. REFERRING PHYSICIAN: Dr. Aragon REFERRING PHYSICIAN Stat EEG in room 811, awake, no hyperventilation due to having two episodes photic done. Episodes of arching back rigid and shaking, left arm shaking, responding during them and sitting up. CT no acute findings. Last EEG 09/07 and 09/23 I do not have the report of it. This is a 61-year female admitted with extreme shakiness, worse in the morning. Left sided facial droop. Possible general tonic-clonic events. History of pseudoseizures with atrial fibrillation loop recorder, psychiatric illness on Cerebyx ceftriaxone given Ativan numerous times as per the description of the record. She had some faster frequency waves seen at times, such as Benzodiazepine effect by epoch 15. She turns her head to left background is symmetrical, <<1:22>> 28 states that she is starting on. There is a lot of artifact but there is no epileptic activity. Overall EEG remains stable between normal alpha and some beta frequencies. Photic stimulation more artifact in the driving response. IMPRESSION Overall normal-appearing EEG no evidence of any epileptic activity even when the patient states that she feels like she is having something occur. Clinical correlation. MD INDIA Jose/moses /1:46 PM /1:53 PM
[2016-09-27] MEDS ORDERED: GLUCAGON 1 MG/ML VIAL OTHER PRN (14:45)
[2016-09-27] MEDS ORDERED: DEXTROSE 50% IN WATER 50 ML VIAL(D50) IV PUSH PRN (14:45)
[2016-09-27] MEDS ORDERED: GADODIAMIDE PF 287 MG/ML 20 ML VIAL (for RAD MRI) IV ONE (15:01)
[2016-09-27] MEDS: INSULIN ASPART SUPPLEMENTAL SCALE SQ SCH ×2 (16:00→21:00)
[2016-09-27] MEDS: ACYCLOVIR INJ 650 MG in SODIUM CHLORIDE 0.9% INJ 100 ML IV SCH ×2 (16:00→22:42)
--- NOTE | 2016-09-27 16:06 | RADRPT ---
EXAM DATE/TIME: 09/27/2016 14:33 [facility] COMPARISON: MRI BRAIN W/O CONTRAST, September 07, 2016, 14:56. INDICATIONS : Seizures. CONTRAST: 18 cc Omniscan (gadodiamide) IV MEDICAL HISTORY : Arthritis. Fibromyalgia, migrains SURGICAL HISTORY : Fusion, cervical. Cholecystectomy. Appendectomy. hysterectomy, medtronic loop recorder, shoulder, bal dder sling ENCOUNTER: Initial ACUITY: 1 day PAIN SCORE: 0/10 LOCATION: cranial TECHNIQUE: Multiplanar, multisequence MRI of the brain was performed both prior to and following the administrat ion of paramagnetic contrast. FINDINGS: CEREBRUM: The ventricles are normal for age. No evidence of midline shift, mass lesion, hemorrhage or acute in farction. No extraaxial fluid collections are seen. The pituitary gland and suprasellar cistern are normal in configuration. WHITE MATTER: A few scattered foci of T2 bright signal abnormalities are seen in the white matter. POSTERIOR FOSSA: The cerebellum and brainstem are intact. The 4th ventricle is midline. The cerebellopontine angle is unremarkable. The cerebellar tonsils are normal in position. DIFFUSION IMAGING: No focal areas of restricted diffusion are seen. No evidence of acute infarction. EXTRACRANIAL: The visualized portions of the orbits and paranasal sinuses are unremarkable. POST-CONTRAST: No abnormal areas of parenchymal or dural enhancement. No evidence of blood-brain barrier breakdown. CONCLUSION: 1. No acute intracranial abnormality. 2. No acute infarct or abnormal enhancement Juan C Bhandari MD on September 27, 2016 at 15:59 Board Certified Radiologist. This report was verified electronically.
[2016-09-27] MEDS: LORazepam 2 MG/ML VIAL IV PUSH PRN ×2 (16:32→21:21)
[2016-09-27] MEDS: PIPERACIL-TAZO 3.375 GM PREMIX 50 ML IV SCH ×2 (17:00→21:16)
--- NOTE | 2016-09-27 17:24 | PD.RAD ---
Post Procedure Progress Note Pre Procedure Diagnosis: (1) Seizure Post Procedure Diagnosis: (1) Seizure Procedure Date: Sep 27, 2016 Supervising Radiologist: Aleksandr Nolasco JR Proceduralist/Assist: Kasia Gavin, RT(R)(), Sarah Pedraza RT(R)() Anesthesia: Local Plan of Activity Patient to Unit: Nursing Unit Patient Condition: Good See PACS Report for procedural detail/treatment Spinal Procedure Lumbar Puncture L4-L5 Fluid Removal (CCs): 9 Fluid Description: Clear Puncture Time: 17:07 Findings: Clear CSF obtained. Samples to lab. Additional Detail: Patient had a total of four seizures during her time in special procedures. Jr. Gaurav,Aleksandr Lilly MD Sep 27, 2016 17:24
--- NOTE | 2016-09-27 18:02 | RADRPT ---
EXAM DATE/TIME: 09/27/2016 17:12 [facility] COMPARISON: No previous studies available for comparison. INDICATIONS : Patient with a history of seizures and headaches in need of lumbar puncture. MEDICAL HISTORY : Psoriatic arthritis Diabetes HSV GERD Asthma Diabetic neuropathy Migraines SURGICAL HISTORY : Cholecystectomy Appendectomy Hysterectomy ENCOUNTER: Subsequent ACUITY: 3 weeks PAIN SCORE: 0/10 LUMBAR PUNCTURE TIME: 1707 hours FLUORO TIME: 0.63 minutes ACCESS LEVEL: L4-5 FLUID: 9 cc of clear CSF was collected and sent to the laboratory for analysis. PROCEDURE : 1. Fluoroscopic guided lumbar puncture. The risks, benefits and alternatives to the procedure were explained and verbal and written consent w as obtained. The site was prepped in sterile fashion. Full sterile technique was used, including ca p, mask, sterile gloves and gown and a large sterile sheet. Hand hygiene and 2% chlorhexidine and/or betadine/alcohol prep was utilized per protocol for cutaneous antisepsis. The skin and subcutaneous tissues were infiltrated with local anesthetic solution. With fluoroscopic guidance the lumbar thecal sac was punctured at the level above. The fluid describ ed above was removed without difficulty. The patient tolerated the procedure well and there were no complications. CONCLUSION: Uncomplicated fluoroscopically guided lumbar puncture. Aleksandr Nolasco Jr., MD on September 27, 2016 at 18:00 Board Certified Radiologist. This report was verified electronically.
[2016-09-27 18:04] VITALS: BP 114/57; PULSE 80; RESP 20; TEMP 98; O2SAT 79
[2016-09-27] MEDS ORDERED: CHLORHEXIDINE GLUCONATE 2 % 1 PACK (2 CLOTHS)(extra cloths) TOP PRN (18:15)
[2016-09-27] MEDS: SUMAtriptan SUCCINATE 50 MG TAB PO PRN (18:57)
[2016-09-27 19:08] LABS: GROSS BLOOD TUBE #1 0 (0); GROSS BLOOD TUBE #2 0 (0); GROSS BLOOD TUBE #3 0 (0); GROSS BLOOD TUBE #4 2+ (0); SUPERNATE COLOR TUBE #1 CLEAR (CLEAR); SUPERNATE COLOR TUBE #2 CLEAR (CLEAR); SUPERNATE COLOR TUBE #3 CLEAR (CLEAR); SUPERNATE COLOR TUBE #4 CLEAR (CLEAR); VOLUME TUBE # 1 2.5 ML; VOLUME TUBE # 2 2.2 ML; VOLUME TUBE # 4 2.5 ML; WBC TUBE #4 25 /MM3 (0-10)
[2016-09-27 19:09] LABS: CSF EOSINOPHILS 1 %; CSF LYMPHOCYTES 35 %; CSF MONOCYTES 2 %; CSF NEUTROPHILS 49 %
[2016-09-27 20:00] VITALS: BP 119/63; PULSE 95; RESP 20; TEMP 97.8; O2SAT 95
[2016-09-27] MEDS ORDERED: SODIUM CHLORIDE 0.9% IV SCH (20:00)
[2016-09-27] MEDS ORDERED: ACYCLOVIR IV SCH (20:00)
[2016-09-27] MEDS: INSULIN DETEMIR 100 UNITS/ML VIAL SQ SCH (21:00)
[2016-09-27] MEDS: PREGABALIN 100 MG CAP PO SCH (21:00)
[2016-09-27] MEDS: predniSONE 10 MG TAB PO SCH (21:00)
[2016-09-27] MEDS: SODIUM CHLORIDE 0.9% FLUSH 5 ML FLUSH IVF SCH (21:15)
[2016-09-27] MEDS: CHLORHEXIDINE GLUCONATE 2 % 1 PACK (2 CLOTHS)(taper/protocol) TOP SCH (21:16)
[2016-09-27] MEDS: LORazepam 2 MG/ML VIAL IV PRN ×2 (21:20→22:42)
[2016-09-27 22:00] VITALS: PULSE 94
[2016-09-27] MEDS: cefTRIAXone INJ 2,000 MG in SODIUM CHLORIDE 0.9% INJ 100 ML IV SCH (22:42)
[2016-09-27] MEDS: VANCOMYCIN 1,000 MG/NS 250 ML IV SCH ×2 (22:42)
[2016-09-27] MEDS ORDERED: VANCOMYCIN INJ 1,000 MG in SODIUM CHLOR 0.9% 250 ML INJ 250 ML IV SCH (23:00)
[2016-09-28] VITALS (12 sets, daily range): BP systolic 104–118; BP diastolic 56–70; PULSE 85–105; RESP 18–20; TEMP 97.5–98; O2SAT 91–94
[2016-09-28] MEDS: LORazepam 2 MG/ML VIAL IV PRN ×5 (04:16→19:38)
[2016-09-28] MEDS: PIPERACIL-TAZO 3.375 GM PREMIX 50 ML IV SCH ×4 (04:17→23:22)
[2016-09-28] MEDS: FOSPHENYTOIN SODIUM 100 MG PE/2 ML VIAL IV SCH ×3 (05:13→21:07)
[2016-09-28] MEDS: INSULIN ASPART SUPPLEMENTAL SCALE SQ SCH ×4 (06:06→19:39)
[2016-09-28 06:29] LABS: AUTOMATED NEUTROPHIL # 3.2 TH/MM3 (1.8-7.7); BASOPHIL # 0.1 TH/MM3 (0-0.2); BASOPHIL % 2.2 % (0.0-2.0); EOSINOPHIL # 0.1 TH/MM3 (0-0.4); EOSINOPHIL % 2.1 % (0.0-4.0); HEMATOCRIT 35.4 % (35.0-46.0); HEMO FLAGS DIFF FINAL; LYMPH % 28.2 % (9.0-44.0); LYMPHOCYTE # 1.6 TH/MM3 (1.0-4.8); MEAN CELL VOLUME 81.6 FL (80.0-100.0); MEAN CORPUSCULAR HEMOGLOBIN 27.9 PG (27.0-34.0); MEAN CORPUSCULAR HGB CONC 34.2 % (32.0-36.0); MONO % 9.7 % (0.0-8.0); NEUT % 57.8 % (16.0-70.0); PLATELET COUNT 161 TH/MM3 (150-450); RED BLOOD COUNT 4.34 MIL/MM3 (4.00-5.30); RED CELL DISTRIBUTION WIDTH 14.7 % (11.6-17.2); WHITE BLOOD COUNT 5.5 TH/MM3 (4.0-11.0)
[2016-09-28 07:11] LABS: ALKALINE PHOSPHATASE 83 U/L (45-117); ALT (GPT) 79 U/L (10-53); ANION GAP 9 MEQ/L (5-15); AST (GOT) 55 U/L (15-37); BICARBONATE 23.6 MEQ/L (21.0-32.0); BLOOD UREA NITROGEN 4 MG/DL (7-18); CHLORIDE 110 MEQ/L (98-107); GLOMERULAR FILTRATION RATE 77 ML/MIN (>89); POTASSIUM 3.7 MEQ/L (3.5-5.1); SODIUM (NA) 143 MEQ/L (136-145); TOTAL BILIRUBIN ADULT 0.3 MG/DL (0.2-1.0)
[2016-09-28] MEDS: DULoxetine HCl DR 60 MG CAP PO SCH (07:37)
[2016-09-28] MEDS: PANTOPRAZOLE SOD 20 MG DELAYED RELEASE TAB PO SCH (07:38)
[2016-09-28] MEDS: predniSONE 10 MG TAB PO SCH ×2 (07:38→19:38)
[2016-09-28] MEDS: SODIUM CHLORIDE 0.9% FLUSH 5 ML FLUSH IVF SCH ×2 (07:38→19:38)
[2016-09-28] MEDS: ACYCLOVIR INJ 650 MG in SODIUM CHLORIDE 0.9% INJ 100 ML IV SCH ×2 (08:00→14:28)
[2016-09-28] MEDS: PREGABALIN 100 MG CAP PO SCH ×2 (09:03→19:38)
[2016-09-28] MEDS: VANCOMYCIN 1,000 MG/NS 250 ML IV SCH ×4 (10:55→23:21)
[2016-09-28] MEDS: cefTRIAXone INJ 2,000 MG in SODIUM CHLORIDE 0.9% INJ 100 ML IV SCH ×2 (11:00→23:21)
[2016-09-28] MEDS: SODIUM CHLOR 0.9% 1000 ML INJ 1,000 ML IV SCH ×3 (11:00→20:20)
[2016-09-28] MEDS ORDERED: ALPRAZolam 0.5 MG TAB PO PRN (13:15)
--- NOTE | 2016-09-28 14:00 | HHI.FPPN ---
Subjective Remarks Patient seen and evaluated at bedside by the medical team for approximately 15 minutes. During this time, the patient was not responding and was having a convulsive episode where she would flex her arms and legs and grown. No urinary or fecal incontinence. Patient was tachycardic during the episode however all vital signs have been stable overnight including temperature. was bedside and stated that this was longer than her usual episode. ( Tonia Pruitt MD R3) Objective Vitals Vital Signs Date Time Temp Pulse Resp B/P Pulse Ox O2 Delivery O2 Flow Rate FiO2 09/28/16 12:00 98.0 102 20 104/59 91 09/28/16 12:00 85 09/28/16 10:00 85 09/28/16 08:00 85 09/28/16 08:00 98.0 95 20 104/56 91 09/28/16 06:00 85 09/28/16 04:00 103 09/28/16 04:00 97.8 103 20 116/56 91 09/28/16 02:00 89 09/28/16 00:00 91 09/28/16 00:00 97.5 91 19 116/61 94 09/27/16 22:00 94 09/27/16 20:00 95 09/27/16 20:00 97.8 95 20 119/63 95 09/27/16 18:04 98.0 80 20 114/57 79 I/O 09/27/16 09/27/16 09/27/16 09/28/16 09/28/16 09/28/16 07:00 15:00 23:00 07:00 15:00 23:00 Intake Total 450 ml 855 ml Output Total 1100 ml 850 ml Balance -650 ml 5 ml Intake IV Total 450 ml 855 ml Output Urine Total 1100 ml 850 ml (Tonia Pruitt MD R3) Result Diagram: 09/28/1614 09/28/16 0614 Imaging Last [address] 09/27/16 1050 Signed Impressions: Service Date/Time: Tuesday, September 27, 2016 11:59 - CONCLUSION: No acute intracranial disease. Juan C Bhandari MD Chest X-Ray 09/27/16 1050 Signed Impressions: Service Date/Time: Tuesday, September 27, 2016 11:17 - CONCLUSION: Underinflated examination. No acute finding is identified. Bismark Lord MD Lumbar Puncture Fluoroscopy 09/27/16 0000 Signed Impressions: Service Date/Time: Tuesday, September 27, 2016 17:12 - CONCLUSION: Uncomplicated fluoroscopically guided lumbar puncture. Aleksandr Nolasco Jr., MD Brain MRI 09/27/16 0000 Signed Impressions: Service Date/Time: Tuesday, September 27, 2016 14:33 - CONCLUSION: 1. No acute intracranial abnormality. 2. No acute infarct or abnormal enhancement Juan C Bhandari MD Objective Remarks Gen.: No acute distress. Patient tremulous and alternating between flexion and extension of labs. Head: Normocephalic. Atraumatic. EENT: Pupils equal round and reactive to light. Nose without drainage. Airway intact. Throat without injection. Cardiovascular: Regular rate and rhythm. No murmurs, rubs or gallops. Respiratory: Lungs clear to auscultation bilaterally. No wheezes or rhonchi. Abdomen: Soft, nontender, nondistended. No peritoneal signs. Musculoskeletal: No gross deformities. No edema. Skin: No obvious rashes or erythema. Neuro: Sensory and motor grossly intact. Cranial nerves II through XII grossly intact. Psych: Patient unresponsive throughout exam (Tonia Pruitt MD R3) A/P Assessment and Plan 61-year-old female recently diagnosed with pseudoseizures after a complete workup in [facility] presents to the emergency department with repeat generalized clonic tonic seizure versus pseudoseizure with elevated lactic acid and headaches, febrile with concern for meningitis. 1. Possible meningitis Continue acyclovir, vancomycin, Zosyn, Rocephin Lumbar puncture significant for a glucose of 115 and a protein of 56.3. White blood cells 25, red blood cells 2575. CSF gram stain showed no organisms with few white blood cells. Culture negative to date. 2. Sepsis Patient febrile and tachycardic on admission with possible encephalitis/ meningitis. Lactic acid elevated to 4.1, lactic acidosis has since resolved. IV fluid hydration status post 2 L bolus in the ED, now on 125 cc/hour Antibiotics as above 3. Generalized clonic tonic seizure with multiple repeat episodes in the emergency department Seizure versus pseudoseizure Neurology consulted, appreciate their recommendations Head CT negative, MRI negative, EEG showed no seizure activity even during patient's episodes which occurred during the EEG Patient started on fosphenytoin Ativan when necessary 4. Diabetes mellitus Holding home Glimepiride Continue Lantus 20 units daily at bedtime Sliding scale insulin 5. Fibromyalgia, rheumatoid arthritis, psoriatic arthritis Continue home medications: Cymbalta, prednisone, Lyrica 7. FEN Fluids normal saline at 125 cc/hour Electrolytes within normal limits, replete when necessary Nutrition nothing by mouth until seizures resolved Holding pharmacologic anticoagulation until 24 hours status post LP Discharge Planning Pending neurology recommendations (Tonia Pruitt MD R3) Attending Attestation Patient seen and examined with resident team. Case reviewed and discussed. Agree with plan of care as discussed with me and documented in the resident note. (Sharon Slaughter MD) Problem List: (1) Seizure Status: Acute (2) Pseudoseizures Status: Chronic (3) Fever Status: Acute (4) Fibromyalgia Status: Chronic (5) DM2 (diabetes mellitus, type 2) Status: Chronic (6) Psoriatic arthritis Status: Chronic (7) Meningitis Status: Acute (Tonia Pruitt MD R3) Problem Qualifiers (1) Fever: Qualified Code: R50.9 - Fever, unspecified fever cause Tonia Pruitt MD R3 Sep 28, 2016 14:00 Sharon Slaughter MD Sep 28, 2016 16:49
--- NOTE | 2016-09-28 16:53 | HHI.FPPN ---
Subjective Subjective Patient seen and examined with the resident team. Case reviewed and discussed Please refer to resident H&P for further details regarding HPI, ROS, PMH, SurgHx , Fh and SocHx In summary, patient is a 61yoF who was brought in for suspected seizure. Apparently, patient was just hospitalized in the [facility] and diagnosed with pseudoseizure and discharged to home. She was brought in by [facility] after the patient's called 911 after patient had a reported seizure at home. She is seen in the intensive care unit this morning with at the bedside. [facility] Objective Objective Last Impressions Head CT 09/27/16 1050 Signed Impressions: Service Date/Time: Tuesday, September 27, 2016 11:59 - CONCLUSION: No acute intracranial disease. Juan C Bhandari MD Chest X-Ray 09/27/16 1050 Signed Impressions: Service Date/Time: Tuesday, September 27, 2016 11:17 - CONCLUSION: Underinflated examination. No acute finding is identified. Bismark Lord MD Lumbar Puncture Fluoroscopy 09/27/16 0000 Signed Impressions: Service Date/Time: Tuesday, September 27, 2016 17:12 - CONCLUSION: Uncomplicated fluoroscopically guided lumbar puncture. Aleksandr Nolasco Jr., MD Brain MRI 09/27/16 0000 Signed Impressions: Service Date/Time: Tuesday, September 27, 2016 14:33 - CONCLUSION: 1. No acute intracranial abnormality. 2. No acute infarct or abnormal enhancement Juan C Bhandari MD Laboratory Tests - Abnormals Test 09/27/16 09/28/16 17:07 06:14 CSF Gross Blood (Tube 4) 2+ CSF WBC (Tube 4) 25 /MM3 CSF RBC (Tube 4) 2575 /MM3 CSF Glucose 115 MG/DL CSF Total Protein 56.3 MG/DL Monocytes (%) (Auto) 9.7 % Basophils (%) (Auto) 2.2 % Chloride Level 110 MEQ/L Blood Urea Nitrogen 4 MG/DL Estimat Glomerular Filtration 77 ML/MIN Rate Random Glucose 194 MG/DL Calcium Level 8.0 MG/DL Aspartate Amino Transf 55 U/L (AST/SGOT) Alanine Aminotransferase 79 U/L (ALT/SGPT) Total Protein 6.3 GM/DL Vital Signs 09/27/16 09/27/16 09/27/16 09/27/16 18:04 20:00 20:00 22:00 Temp 98.0 97.8 Pulse 80 95 95 94 Resp 20 20 B/P 114/57 119/63 Pulse Ox 79 95 09/28/16 09/28/16 09/28/16 09/28/16 00:00 00:00 02:00 04:00 Temp 97.5 97.8 Pulse 91 91 89 103 Resp 19 20 B/P 116/61 116/56 Pulse Ox 94 91 09/28/16 09/28/16 09/28/16 09/28/16 04:00 06:00 08:00 08:00 Temp 98.0 Pulse 103 85 95 85 Resp 20 B/P 104/56 Pulse Ox 91 09/28/16 09/28/16 09/28/16 09/28/16 10:00 12:00 12:00 14:00 Temp 98.0 Pulse 85 85 102 103 Resp 20 B/P 104/59 Pulse Ox 91 09/28/16 16:00 Pulse 103 INTAKE & OUTPUT 09/28/16 07:00 Intake Total 1305 ml Output Total 1950 ml Balance -645 ml Physical exam GENERAL: WDWN patient in bed, starts shaking during the encounter with at the bedside. SKIN: Warm and dry. No rashes or lesions HEAD: Normocephalic. Atraumatic EYES: No scleral icterus. No injection or drainage. PERRL ENT: OP clear. MMM NECK: Supple, trachea midline. No JVD or lymphadenopathy. CARDIOVASCULAR: Regular rate and rhythm without murmurs, gallops, or rubs. RESPIRATORY: Breath sounds equal bilaterally. No accessory muscle use. GASTROINTESTINAL: Abdomen soft, non-tender, nondistended. MUSCULOSKELETAL: No cyanosis, or edema. BACK: Nontender without obvious deformity. No CVA tenderness. NEURO: Keeps eyes closed during encounter, but intermittently answers questions. Squirming in bed during encounter, but able to squeeze my hand when asked and follow commands. GLADYS. 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 Eckert from prior hospital stay, appreciate recs Empiric antibiotic and anti-viral therapy Follow culture results Continue anti-epileptic medication May require 24h video EEG Resume home meds as appropriate DW patient and at the bedside Patient seen and examined. Case reviewed and discussed Agree with plan of care as discussed with me and documented in the resident note. Sharon Slaughter MD Sep 28, 2016 16:53
--- NOTE | 2016-09-28 17:59 | HHI.PR ---
Review/Management Diagnosis probable pseudo sz csf wbc count most likely due to traumatic tap. (rbc was elevated) Plan recommend referal to center where in patient 24 hr eeg telemetry is available for further evaluation of probable pseudo seizure Diagnosis/Plan: Subjective Subjective Comments Patient had several episodes today. According to nursing staff did not appear characteristic of sz. Active Medications Current Medications Medications (Trade) Dose Ordered Sig/Jannie Route Start Time Stop Time Status Last Admin (NS 1000 ml Inj) 1,000 ml @ 125 mls/hr Q8H IV 09/27/16 11:00 09/28/16 11:00 (Cerebyx Inj) 100 mgpe Q8HR IV 09/27/16 14:00 09/28/16 13:49 (Ativan Inj) 1 mg Q2H PRN IV PUSH 09/27/16 12:15 09/27/16 21:21 (NS Flush) 2 ml UNSCH PRN IVF 09/27/16 14:00 (NS Flush) 2 ml BID IVF 09/27/16 21:00 09/28/16 07:38 (Ativan Inj) 2 mg Q10M PRN IV 09/27/16 14:00 09/28/16 13:49 Acetaminophen 650 mg 650 mg Q4H PRN PO 09/27/16 14:00 Piperacillin Sod/ Tazobactam Sod 50 ml @ 100 mls/hr Q6H IV 09/27/16 17:00 09/28/16 17:00 Pharmacy Profile Note 0 ml @ 0 mls/hr UNSCH OTHER 09/27/16 14:00 (Rocephin Inj/NS Inj) 100 ml @ 200 mls/hr Q12H IV 09/27/16 23:00 09/28/16 11:00 (Cymbalta Dr) 60 mg DAILY PO 09/28/16 09:00 09/28/16 07:37 (Levemir Inj) 20 units HS SQ 09/27/16 21:00 (Deltasone) 10 mg BID PO 09/27/16 21:00 09/28/16 07:38 (Lyrica) 100 mg BID PO 09/27/16 21:00 09/28/16 09:03 (Imitrex) 100 mg DAILY PRN PO 09/27/16 14:15 09/27/16 18:57 (Protonix) 20 mg DAILY PO 09/28/16 09:00 09/28/16 07:38 (D50w (Vial) Inj) 25 ml UNSCH PRN IV PUSH 09/27/16 14:45 Glucagon 1 mg 1 mg UNSCH PRN OTHER 09/27/16 14:45 (Vancomycin Inj/ NS 250 ml Inj) 250 ml @ 250 mls/hr Q12H IV 09/27/16 23:00 09/28/16 10:55 Miscellaneous Information SPECIFIC LAB TO BE IVANNA... ONCE ONCE XX 09/28/16 22:45 09/28/16 22:46 (Zovirax Inj/NS Inj) 100 ml @ 100 mls/hr Q8H IV 09/27/16 16:00 09/28/16 14:28 Miscellaneous Information Patient in critical care unit? Ass... Q361D XX 09/27/16 18:15 09/27/16 18:15 (Chlorhexidine 2% Cloth) 3 pack DAILY@04 TOP 09/28/16 04:00 10/02/16 04:01 09/27/16 21:16 (Chlorhexidine 2% Cloth) 3 pack UNSCH PRN TOP 09/27/16 18:15 10/02/16 18:06 Allergies Allergies Coded Allergies Bee Sting (Verified Allergy, Severe, Anaphylaxis, 09/27/16) Egg Allergy (Verified Allergy, Severe, SWELLING, 09/27/16) Flu Vaccine (Verified Allergy, Severe, Anaphylaxis, 09/27/16) Sulfa (Verified Allergy, Unknown, RASH, 09/27/16) Exam I&O / VS 09/27/16 09/27/16 09/28/16 15:00 23:00 07:00 Intake Total 450 ml 855 ml Output Total 1100 ml 850 ml Balance -650 ml 5 ml Intake IV Total 450 ml 855 ml Output Urine Total 1100 ml 850 ml Vital Signs Date Time Temp Pulse Resp B/P Pulse Ox O2 Delivery O2 Flow Rate FiO2 09/28/16 16:00 103 09/28/16 16:00 97.8 95 20 110/61 91 09/28/16 14:00 103 09/28/16 12:00 98.0 102 20 104/59 91 09/28/16 12:00 85 09/28/16 10:00 85 09/28/16 08:00 85 09/28/16 08:00 98.0 95 20 104/56 91 09/28/16 06:00 85 09/28/16 04:00 103 09/28/16 04:00 97.8 103 20 116/56 91 09/28/16 02:00 89 09/28/16 00:00 91 09/28/16 00:00 97.5 91 19 116/61 94 09/27/16 22:00 94 09/27/16 20:00 95 09/27/16 20:00 97.8 95 20 119/63 95 09/27/16 18:04 98.0 80 20 114/57 79 Exam Comments alert, cooperative, speech normal CN 2-12 normal Motor 5./5 BUE and BLE Objective Radiology Results MRI brain is normal Micro and Labs Laboratory Tests Test 09/28/16 06:14 White Blood Count 5.5 Red Blood Count 4.34 Hemoglobin 12.1 Hematocrit 35.4 Mean Corpuscular Volume 81.6 Mean Corpuscular Hemoglobin 27.9 Mean Corpuscular Hemoglobin 34.2 Concent Red Cell Distribution Width 14.7 Platelet Count 161 Mean Platelet Volume 8.3 Neutrophils (%) (Auto) 57.8 Lymphocytes (%) (Auto) 28.2 Monocytes (%) (Auto) 9.7 Eosinophils (%) (Auto) 2.1 Basophils (%) (Auto) 2.2 Neutrophils # (Auto) 3.2 Lymphocytes # (Auto) 1.6 Monocytes # (Auto) 0.5 Eosinophils # (Auto) 0.1 Basophils # (Auto) 0.1 CBC Comment DIFF FINAL Differential Comment Sodium Level 143 Potassium Level 3.7 Chloride Level 110 Carbon Dioxide Level 23.6 Anion Gap 9 Blood Urea Nitrogen 4 Creatinine 0.77 Estimat Glomerular Filtration 77 Rate Random Glucose 194 Lactic Acid Level 1.5 Calcium Level 8.0 Total Bilirubin 0.3 Aspartate Amino Transf 55 (AST/SGOT) Alanine Aminotransferase 79 (ALT/SGPT) Alkaline Phosphatase 83 Total Protein 6.3 Albumin 3.5 Date/Time Procedure Status Source Growth 09/27/16 17:07 Gram Stain - Final Resulted Cerebral Spinal Fluid Lumbar Puncture 09/27/16 17:07 CSF Culture - Preliminary Resulted Cerebral Spinal Fluid Lumbar Puncture NO GROWTH IN 24 HOURS. 09/27/16 11:20 Aerobic Blood Culture - Preliminary Resulted Blood Peripheral NO GROWTH IN 1 DAY 09/27/16 11:20 Anaerobic Blood Culture - Preliminary Resulted Blood Peripheral NO GROWTH IN 1 DAY Diagnostic Tests EEG--no epileptiform discharges. Pt had an episode during EEG but were no epileptiform discharges. Chavez Eckert PhD Sep 28, 2016 17:59
[2016-09-28] MEDS: INSULIN DETEMIR 100 UNITS/ML VIAL SQ SCH (19:38)
[2016-09-28] MEDS: SUMAtriptan SUCCINATE 50 MG TAB PO PRN (19:39)
--- NOTE | 2016-09-28 22:41 | EKG ---
Date Performed: 09/27/2016 Time Performed: 11:10:00 PTAGE: 61 years EKG: SINUS TACHYCARDIA ABNORMAL RHYTHM ECG PREVIOUS TRACING : 09/06/2016 14.07 Compared to prior tracing no significant change DOCTOR: Valeriano Cast Interpretating Date/Time 09/28/2016 22:39:50
[2016-09-28] MEDS: CHLORHEXIDINE GLUCONATE 2 % 1 PACK (2 CLOTHS)(taper/protocol) TOP SCH (22:42)
[2016-09-28] MEDS ORDERED: PHARMACY ORDERED LAB XX ONE (22:45)
[2016-09-29] VITALS (13 sets, daily range): BP systolic 113–128; BP diastolic 55–64; PULSE 87–113; RESP 15–19; TEMP 97.9–98.7; O2SAT 92–98
[2016-09-29] MEDS: ACYCLOVIR INJ 650 MG in SODIUM CHLORIDE 0.9% INJ 100 ML IV SCH ×3 (00:01→17:04)
[2016-09-29] MEDS: LORazepam 2 MG/ML VIAL IV PRN ×3 (04:22→20:29)
[2016-09-29] MEDS: PIPERACIL-TAZO 3.375 GM PREMIX 50 ML IV SCH ×4 (04:22→22:26)
[2016-09-29] MEDS: FOSPHENYTOIN SODIUM 100 MG PE/2 ML VIAL IV SCH ×2 (04:45→13:41)
[2016-09-29] MEDS: INSULIN ASPART SUPPLEMENTAL SCALE SQ SCH ×4 (05:08→21:36)
[2016-09-29 07:20] LABS: HEMATOCRIT 36.1 % (35.0-46.0); MEAN CELL VOLUME 81.3 FL (80.0-100.0); MEAN CORPUSCULAR HEMOGLOBIN 27.7 PG (27.0-34.0); PLATELET COUNT 174 TH/MM3 (150-450); RED BLOOD COUNT 4.45 MIL/MM3 (4.00-5.30); RED CELL DISTRIBUTION WIDTH 15.1 % (11.6-17.2); REVIEW FLAG FINAL; WHITE BLOOD COUNT 7.1 TH/MM3 (4.0-11.0)
[2016-09-29 07:38] LABS: ALKALINE PHOSPHATASE 82 U/L (45-117); ALT (GPT) 66 U/L (10-53); ANION GAP 10 MEQ/L (5-15); AST (GOT) 33 U/L (15-37); BICARBONATE 24.5 MEQ/L (21.0-32.0); BLOOD UREA NITROGEN 4 MG/DL (7-18); CHLORIDE 108 MEQ/L (98-107); GLOMERULAR FILTRATION RATE 79 ML/MIN (>89); POTASSIUM 3.4 MEQ/L (3.5-5.1); SODIUM (NA) 142 MEQ/L (136-145); TOTAL BILIRUBIN ADULT 0.2 MG/DL (0.2-1.0)
[2016-09-29] MEDS: LORazepam 2 MG/ML VIAL IV PUSH PRN ×2 (08:51→17:09)
[2016-09-29] MEDS: PANTOPRAZOLE SOD 20 MG DELAYED RELEASE TAB PO SCH (08:54)
[2016-09-29] MEDS: PREGABALIN 100 MG CAP PO SCH ×2 (08:54→11:33)
[2016-09-29] MEDS: predniSONE 10 MG TAB PO SCH ×2 (08:54→21:35)
[2016-09-29] MEDS: SODIUM CHLORIDE 0.9% FLUSH 5 ML FLUSH IVF SCH ×2 (08:54→20:30)
[2016-09-29 10:00] LABS: HSV 1,PCR Negative (Negative)
--- NOTE | 2016-09-29 11:08 | HHI.FPPN ---
Subjective Remarks Patient was lying in bed, continues to have tremors. She understands that she is not having epileptic seizures and wanted to know if the tremors are caused by her sarcoidosis. She and her had a conversation with Dr. Eckert yesterday and they are in agreement that she should go to [facility] for video EEG and further management. She has a video EEG appointment, which was setup by her neurologist (Dr. Godfrey, [facility]) at her home on Monday. She would call her neurologist to let him know what is happening. (Shaunna Syed MD R1) Objective Vitals Vital Signs Date Time Temp Pulse Resp B/P Pulse Ox O2 Delivery O2 Flow Rate FiO2 09/29/16 10:00 95 09/29/16 08:00 88 09/29/16 06:00 91 09/29/16 04:00 98.0 89 15 116/58 94 09/29/16 04:00 89 09/29/16 02:00 87 09/29/16 00:00 98.2 95 18 127/64 92 09/29/16 00:00 95 09/28/16 22:00 85 09/28/16 20:00 97.9 105 18 118/70 93 09/28/16 20:00 105 09/28/16 18:00 103 09/28/16 16:00 103 09/28/16 16:00 97.8 95 20 110/61 91 09/28/16 14:00 103 09/28/16 12:00 98.0 102 20 104/59 91 09/28/16 12:00 85 I/O 09/28/16 09/28/16 09/28/16 09/29/16 09/29/16 09/29/16 07:00 15:00 23:00 07:00 15:00 23:00 Intake Total 855 ml 750 ml 1248 ml 1405 ml Output Total 850 ml 2000 ml 800 ml 1000 ml Balance 5 ml -1250 ml 448 ml 405 ml Intake Oral 560 ml 550 ml IV Total 855 ml 750 ml 688 ml 855 ml Output Urine Total 850 ml 2000 ml 800 ml 1000 ml # Bowel Movements 1 (Shaunna Syed MD R1) Result Diagram: 09/29/1652309/29/1624 Objective Remarks Gen.: No acute distress. Patient tremulous Head: Normocephalic. Atraumatic. EENT: Pupils equal round and reactive to light. Nose without drainage. Airway intact. Cardiovascular: Regular rate and rhythm. No murmurs, rubs or gallops. Respiratory: Lungs clear to auscultation bilaterally. No wheezes or rhonchi. Abdomen: Soft, nontender, nondistended. No peritoneal signs. Musculoskeletal: No gross deformities. No edema. Skin: No obvious rashes or erythema. Neuro: Sensory and motor grossly intact. Cranial nerves II through XII grossly intact. Psych: Patient alert and interacts appropriately with examiner (Shaunna Syed MD R1) A/P Assessment and Plan 61-year-old female recently diagnosed with pseudoseizures after a complete workup in [facility] presented to the emergency department with repeat generalized clonic tonic seizure versus pseudoseizure with elevated lactic acid and headaches, febrile with concern for meningitis. 1. Possible meningitis Continue acyclovir, vancomycin, Zosyn, Rocephin Lumbar puncture significant for a glucose of 115 and a protein of 56.3. White blood cells 25, red blood cells 2575, these elevated numbers may be due to a traumatic tap. CSF gram stain showed no organisms with few white blood cells. Culture negative to date. 2. Sepsis Patient febrile and tachycardic on admission with possible encephalitis/ meningitis. Lactic acid elevated to 4.1, lactic acidosis has since resolved. IV fluid hydration status post 2 L bolus in the ED, now on 125 cc/hour Antibiotics as above 3. Generalized clonic tonic seizure with multiple repeat episodes in the emergency department Seizure versus pseudoseizure Neurology consulted, appreciate their recommendations Head CT negative, MRI negative, EEG showed no seizure activity even during patient's episodes which occurred during the EEG Patient started on fosphenytoin Ativan when necessary 4. Diabetes mellitus Holding home Glimepiride Continue Lantus 20 units daily at bedtime Sliding scale insulin 5. Fibromyalgia, rheumatoid arthritis, psoriatic arthritis Continue home medications: Cymbalta, prednisone, Lyrica 7. FEN Fluids normal saline at 125 cc/hour Electrolytes within normal limits, replete when necessary Nutrition nothing by mouth until seizures resolved Heparin 5000 units subcutaneous Discharge Planning Possible discharge to [facility] or other tertiary center for video EEG and further evaluation (Shaunna Syed MD R1) Problem List: (1) Seizure Status: Acute (2) Pseudoseizures Status: Chronic (3) Fever Status: Acute (4) Fibromyalgia Status: Chronic (5) DM2 (diabetes mellitus, type 2) Status: Chronic (6) Psoriatic arthritis Status: Chronic (7) Meningitis Status: Acute (Shaunna Syed MD R1) Problem Qualifiers (1) Fever: Qualified Code: R50.9 - Fever, unspecified fever cause Shaunna Syed MD R1 Sep 29, 2016 11:08 Sharon Slaughter MD Sep 30, 2016 15:26
[2016-09-29] MEDS: cefTRIAXone INJ 2,000 MG in SODIUM CHLORIDE 0.9% INJ 100 ML IV SCH ×2 (11:33→23:56)
[2016-09-29] MEDS: DULoxetine HCl DR 60 MG CAP PO SCH (11:40)
[2016-09-29] MEDS: SODIUM CHLOR 0.9% 1000 ML INJ 1,000 ML IV SCH (11:51)
[2016-09-29] MEDS ORDERED: Vancomycin Consult Pharmacy 1 EA OTHER SCH (15:45)
[2016-09-29] MEDS: VANCOMYCIN 1,500 MG/NS 500 ML IV SCH ×2 (17:04)
--- NOTE | 2016-09-29 18:57 | HHI.PR ---
Addendum to Inpatient Note Addendum Reason: Additional Documentation Additional Information Called by the nurse because patient was complaining of 10/10 chest pain. VS: BP 125/63, 113, 18, O2 95% RA. Arrived bedside and patient was eating dinner. She stated that during her last episode (where patient shakes and alternates flexion and extension of upper and lower extremities) she had severe, unrelenting 10/10 chest pain and pressure that was in the middle of her chest and that radiated down her left arm. The patient states that this lasted for 1-2 minutes and that the pain in her arm then subsided. She currently still has chest pressure and points to her left chest as the area where she is experiencing pain. The pain is reproducible with palpation. The patient is not SOB or diaphoretic. PE: VS - as above General: NAD, no shaking or tremors present at this time, patient sitting up in bed eating CV: tachycardic, NSR Resp: Lungs CTAB Abd: ND, NT, No peritoneal signs Ext: No edema A/P: 61 year old female with h/o pseudoseizure currently undergoing treatment for possible meningitis and seizure vs pseudoseizure presents with sudden onset CP. -EKG showed sinus tach -ACS r/o with trended troponins and EKGs -continue telemetry (Tonia Pruitt MD R3) Tonia Pruitt MD R3 Sep 29, 2016 18:57 Sharon Slaughter MD Sep 30, 2016 13:58
--- NOTE | 2016-09-29 19:23 | HHI.PR ---
Review/Management Diagnosis probable pseudo sz Plan recommend referal to center where in patient 24 hr eeg telemetry is available for further evaluation of probable pseudo seizure Diagnosis/Plan: Subjective Subjective Comments Pt has had several episodes today Active Medications Current Medications Medications (Trade) Dose Ordered Sig/Jannie Route Start Time Stop Time Status Last Admin (NS 1000 ml Inj) 1,000 ml @ 125 mls/hr Q8H IV 09/27/16 11:00 09/29/16 11:51 (Cerebyx Inj) 100 mgpe Q8HR IV 09/27/16 14:00 09/29/16 13:41 (Ativan Inj) 1 mg Q2H PRN IV PUSH 09/27/16 12:15 09/29/16 17:09 (NS Flush) 2 ml UNSCH PRN IVF 09/27/16 14:00 (NS Flush) 2 ml BID IVF 09/27/16 21:00 09/29/16 08:54 (Ativan Inj) 2 mg Q10M PRN IV 09/27/16 14:00 09/29/16 13:42 Acetaminophen 650 mg 650 mg Q4H PRN PO 09/27/16 14:00 Piperacillin Sod/ Tazobactam Sod 50 ml @ 100 mls/hr Q6H IV 09/27/16 17:00 09/29/16 16:06 Pharmacy Profile Note 0 ml @ 0 mls/hr UNSCH OTHER 09/27/16 14:00 (Rocephin Inj/NS Inj) 100 ml @ 200 mls/hr Q12H IV 09/27/16 23:00 09/29/16 11:33 (Cymbalta Dr) 60 mg DAILY PO 09/28/16 09:00 09/29/16 11:40 (Levemir Inj) 20 units HS SQ 09/27/16 21:00 09/28/16 19:38 (Deltasone) 10 mg BID PO 09/27/16 21:00 09/29/16 08:54 (Lyrica) 100 mg BID PO 09/27/16 21:00 09/29/16 11:33 (Imitrex) 100 mg DAILY PRN PO 09/27/16 14:15 09/28/16 19:39 (Protonix) 20 mg DAILY PO 09/28/16 09:00 09/29/16 08:54 (D50w (Vial) Inj) 25 ml UNSCH PRN IV PUSH 09/27/16 14:45 Glucagon 1 mg 1 mg UNSCH PRN OTHER 09/27/16 14:45 (Zovirax Inj/NS Inj) 100 ml @ 100 mls/hr Q8H IV 09/27/16 16:00 09/29/16 17:04 Miscellaneous Information Patient in critical care unit? Ass... Q361D XX 09/27/16 18:15 09/27/16 18:15 (Chlorhexidine 2% Cloth) 3 pack DAILY@04 TOP 09/28/16 04:00 10/02/16 04:01 09/28/16 22:42 (Chlorhexidine 2% Cloth) 3 pack UNSCH PRN TOP 09/27/16 18:15 10/02/16 18:06 Heparin Sodium (Porcine) 5000 units 5,000 units Q12HR SQ 09/29/16 21:00 (Vancomycin Inj/ NS 500 ml Inj) 515 ml @ 257.5 mls/ hr Q12H IV 09/29/16 18:00 09/29/16 17:04 Miscellaneous Information SPECIFIC LAB TO BE DRAWN:VANCO TROUGH DATE TO BE DRDelaney.. ONCE ONCE XX 10/01/16 05:45 10/01/16 05:46 Allergies Allergies Coded Allergies Bee Sting (Verified Allergy, Severe, Anaphylaxis, 09/27/16) Egg Allergy (Verified Allergy, Severe, SWELLING, 09/27/16) Flu Vaccine (Verified Allergy, Severe, Anaphylaxis, 09/27/16) Sulfa (Verified Allergy, Unknown, RASH, 09/27/16) Exam I&O / VS 09/28/16 09/28/16 09/29/16 15:00 23:00 07:00 Intake Total 750 ml 1248 ml 1405 ml Output Total 2000 ml 800 ml 1000 ml Balance -1250 ml 448 ml 405 ml Intake Oral 560 ml 550 ml IV Total 750 ml 688 ml 855 ml Output Urine Total 2000 ml 800 ml 1000 ml # Bowel Movements 1 Vital Signs Date Time Temp Pulse Resp B/P Pulse Ox O2 Delivery O2 Flow Rate FiO2 09/29/16 18:00 109 09/29/16 16:43 102 09/29/16 16:00 97.9 102 17 128/64 95 09/29/16 14:00 113 09/29/16 12:00 97.9 105 15 113/55 98 09/29/16 12:00 99 09/29/16 10:00 95 09/29/16 08:00 98.0 92 19 121/64 94 09/29/16 08:00 88 09/29/16 06:00 91 09/29/16 04:00 98.0 89 15 116/58 94 09/29/16 04:00 89 09/29/16 02:00 87 09/29/16 00:00 98.2 95 18 127/64 92 09/29/16 00:00 95 09/28/16 22:00 85 09/28/16 20:00 97.9 105 18 118/70 93 09/28/16 20:00 105 Exam Comments alert, cooperative, speech normal CN 2-12 normal Motor 5./5 BUE and BLE Objective Micro and Labs Laboratory Tests Test 09/28/16 09/29/16 22:54 05:24 Vancomycin Level Trough 4.0 Phenytoin (Dilantin) Level 7.5 White Blood Count 7.1 Red Blood Count 4.45 Hemoglobin 12.3 Hematocrit 36.1 Mean Corpuscular Volume 81.3 Mean Corpuscular Hemoglobin 27.7 Mean Corpuscular Hemoglobin 34.0 Concent Red Cell Distribution Width 15.1 Platelet Count 174 Mean Platelet Volume 8.9 Sodium Level 142 Potassium Level 3.4 Chloride Level 108 Carbon Dioxide Level 24.5 Anion Gap 10 Blood Urea Nitrogen 4 Creatinine 0.75 Estimat Glomerular Filtration 79 Rate Random Glucose 186 Calcium Level 8.5 Total Bilirubin 0.2 Aspartate Amino Transf 33 (AST/SGOT) Alanine Aminotransferase 66 (ALT/SGPT) Alkaline Phosphatase 82 Total Protein 6.4 Albumin 3.4 Date/Time Procedure Status Source Growth 09/27/16 17:07 Gram Stain - Final Resulted Cerebral Spinal Fluid Lumbar Puncture 09/27/16 17:07 CSF Culture - Preliminary Resulted Cerebral Spinal Fluid Lumbar Puncture NO GROWTH IN 48 HOURS. 09/27/16 11:20 Aerobic Blood Culture - Preliminary Resulted Blood Peripheral NO GROWTH IN 2 DAYS 09/27/16 11:20 Anaerobic Blood Culture - Preliminary Resulted Blood Peripheral NO GROWTH IN 2 DAYS Chavez Eckert PhD Sep 29, 2016 19:23
[2016-09-29] MEDS ORDERED: FOSPHENYTOIN SODIUM 100 MG PE/2 ML VIAL IV ONE (19:30)
[2016-09-29] MEDS ORDERED: FOSPHENYTOIN INJ 300 MGPE in SODIUM CHLORIDE 0.9% INJ 50 ML IV ONE (20:00)
[2016-09-29] MEDS: HEPARIN SODIUM - SQ 10,000 UNITS/ML VIAL SQ SCH (21:35)
[2016-09-29] MEDS: INSULIN DETEMIR 100 UNITS/ML VIAL SQ SCH (21:36)
[2016-09-30] VITALS (12 sets, daily range): BP systolic 101–137; BP diastolic 56–70; PULSE 67–111; RESP 14–18; TEMP 97.8–98.6; O2SAT 93–96
[2016-09-30] MEDS: SODIUM CHLOR 0.9% 1000 ML INJ 1,000 ML IV SCH ×3 (00:28→17:01)
[2016-09-30] MEDS: FOSPHENYTOIN SODIUM 100 MG PE/2 ML VIAL IV SCH ×4 (00:29→17:04)
[2016-09-30] MEDS: ACYCLOVIR INJ 650 MG in SODIUM CHLORIDE 0.9% INJ 100 ML IV SCH ×3 (00:29→16:13)
[2016-09-30] MEDS: CHLORHEXIDINE GLUCONATE 2 % 1 PACK (2 CLOTHS)(taper/protocol) TOP SCH (05:00)
[2016-09-30] MEDS: PIPERACIL-TAZO 3.375 GM PREMIX 50 ML IV SCH ×4 (05:48→23:00)
[2016-09-30] MEDS: VANCOMYCIN 1,500 MG/NS 500 ML IV SCH ×4 (06:44→17:02)
[2016-09-30] MEDS: INSULIN ASPART SUPPLEMENTAL SCALE SQ SCH ×4 (06:59→20:56)
--- NOTE | 2016-09-30 07:31 | HHI.FPPN ---
Subjective Remarks Overnight, she had chest pain that radiated down her left arm. EKGx2 and Troponinx2 were wnl. Pt was sitting up in bed at the time of exam. She had two episodes and received 2mg Ativan after the 2nd episode. She wanted to know more about possible transfer to [facility] today. Also wanted to know if her sarcoidosis could cause the jerking motions. She understands that she is not having epileptic seizures. She has tremors all the time and knows when she is about to have a full-blown jerking event. (Shaunna Syed MD R1) Objective Vitals Vital Signs Date Time Temp Pulse Resp B/P Pulse Ox O2 Delivery O2 Flow Rate FiO2 09/30/16 02:00 91 09/30/16 00:00 79 09/30/16 00:00 97.8 79 16 129/61 94 09/29/16 22:00 88 09/29/16 20:00 95 09/29/16 20:00 98.7 95 16 125/63 92 09/29/16 18:00 109 09/29/16 16:43 102 09/29/16 16:00 97.9 102 17 128/64 95 09/29/16 14:00 113 09/29/16 12:00 97.9 105 15 113/55 98 09/29/16 12:00 99 09/29/16 10:00 95 09/29/16 08:00 98.0 92 19 121/64 94 09/29/16 08:00 88 I/O 09/29/16 09/29/16 09/29/16 09/30/16 09/30/16 09/30/16 07:00 15:00 23:00 07:00 15:00 23:00 Intake Total 1405 ml 1150 ml 1826 ml Output Total 1000 ml 1500 ml 1000 ml Balance 405 ml -350 ml 826 ml Intake Oral 550 ml 400 ml 320 ml IV Total 855 ml 750 ml 1506 ml Output Urine Total 1000 ml 1500 ml 1000 ml # Bowel Movements 0 0 (Shaunna Syed MD R1) Result Diagram: 09/29/1652309/29/16523 Objective Remarks Gen.: No acute distress. Patient tremulous Head: Normocephalic. Atraumatic. EENT: Pupils equal round and reactive to light. Nose without drainage. Airway intact. Cardiovascular: Regular rate and rhythm. No murmurs, rubs or gallops. Respiratory: Lungs clear to auscultation bilaterally. No wheezes or rhonchi. Abdomen: Soft, nontender, nondistended. No peritoneal signs. Musculoskeletal: No gross deformities. No edema. Skin: No obvious rashes or erythema. Neuro: Sensory and motor grossly intact. Cranial nerves II through XII grossly intact. Psych: Patient alert and interacts appropriately with examiner (Shaunna Syed MD R1) A/P Assessment and Plan 61-year-old female recently diagnosed with pseudoseizures after a complete workup in [facility] presented to the emergency department with repeat generalized clonic tonic seizure versus pseudoseizure with elevated lactic acid and headaches, febrile with concern for meningitis. 1. Possible meningitis Continue acyclovir, vancomycin, Zosyn, Rocephin Lumbar puncture significant for a glucose of 115 and a protein of 56.3. White blood cells 25, red blood cells 2575, these elevated numbers may be due to a traumatic tap. CSF gram stain showed no organisms with few white blood cells. Culture negative to date. 2. Sepsis Patient febrile and tachycardic on admission with possible encephalitis/ meningitis. Lactic acid elevated to 4.1, lactic acidosis has since resolved. IV fluid hydration status post 2 L bolus in the ED, now on 125 cc/hour Antibiotics as above 3. Generalized clonic tonic seizure with multiple repeat episodes in the emergency department Seizure versus pseudoseizure Neurology consulted, appreciate their recommendations Head CT negative, MRI negative, EEG showed no seizure activity even during patient's episodes which occurred during the EEG Patient started on fosphenytoin Ativan when necessary 4. Diabetes mellitus Holding home Glimepiride Continue Lantus 20 units daily at bedtime Sliding scale insulin 5. Fibromyalgia, rheumatoid arthritis, psoriatic arthritis Continue home medications: Cymbalta, prednisone, Lyrica 7. FEN Fluids normal saline at 125 cc/hour Electrolytes within normal limits, replete when necessary Diabetic diet Heparin 5000 units subcutaneous Discharge Planning Possible discharge today to [facility] or other tertiary center for video EEG and further evaluation (Shaunna Syed MD R1) Attending Attestation Patient seen and examined. Case reviewed and discussed Agree with plan of care as discussed with me and documented in the resident note. Discussed transfer with neurology, Dr. Saez 09/29/16 who accepted patient for transfer pending bed availability for 24h video EEG with telemetry monitoring. Rey RN. (Sharon Slaughter MD) Problem List: (1) Seizure Status: Acute (2) Pseudoseizures Status: Chronic (3) Fever Status: Acute (4) Fibromyalgia Status: Chronic (5) DM2 (diabetes mellitus, type 2) Status: Chronic (6) Psoriatic arthritis Status: Chronic (7) Meningitis Status: Acute (Shaunna Syed MD R1) Problem Qualifiers (1) Fever: Qualified Code: R50.9 - Fever, unspecified fever cause Shaunna Syed MD R1 Sep 30, 2016 07:31 Sharon Slaughter MD Sep 30, 2016 15:26
[2016-09-30] MEDS: SODIUM CHLORIDE 0.9% FLUSH 5 ML FLUSH IVF SCH ×2 (08:33→20:55)
[2016-09-30] MEDS: DULoxetine HCl DR 60 MG CAP PO SCH (08:33)
[2016-09-30] MEDS: PANTOPRAZOLE SOD 20 MG DELAYED RELEASE TAB PO SCH (08:33)
[2016-09-30] MEDS: HEPARIN SODIUM - SQ 10,000 UNITS/ML VIAL SQ SCH ×2 (08:33→20:55)
[2016-09-30] MEDS: predniSONE 10 MG TAB PO SCH ×2 (08:33→20:55)
[2016-09-30] MEDS: PREGABALIN 100 MG CAP PO SCH ×2 (08:33→20:55)
[2016-09-30] MEDS: LORazepam 2 MG/ML VIAL IV PRN ×3 (08:45→17:39)
[2016-09-30] MEDS ORDERED: VANCOMYCIN INJ 1,250 MG in SODIUM CHLOR 0.9% 250 ML INJ 250 ML IV SCH (09:00)
[2016-09-30] MEDS: cefTRIAXone INJ 2,000 MG in SODIUM CHLORIDE 0.9% INJ 100 ML IV SCH ×2 (11:02→23:38)
--- NOTE | 2016-09-30 15:50 | HHI.DCPOC ---
Discharge Care Plan Diagnosis: (1) Sarcoidosis (2) Recurrent seizures (3) Psychogenic nonepileptic seizure (4) Meningitis (5) TIA (transient ischemic attack) (6) Blind left eye (7) Tremor Goals to Promote Your Health * To prevent worsening of your condition and complications * To maintain your health at the optimal level Directions to Meet Your Goals Take your medications as prescribed Follow your dietary instruction Follow activity as directed Keep your appointments as scheduled Take your immunizations and boosters as scheduled If your symptoms worsen call your PCP, if no PCP go to Urgent Care Center or Emergency Room Smoking is Dangerous to Your Health. Avoid second hand smoke Call the 24-hour hour crisis hotline for domestic abuse at Shaunna Syed MD R1 Sep 30, 2016 15:50 Sharon Slaughter MD Sep 30, 2016 16:21
--- NOTE | 2016-09-30 16:43 | EKG ---
Date Performed: 09/29/2016 Time Performed: 18:52:07 PTAGE: 61 years EKG: SINUS TACHYCARDIA NONSPECIFIC T-WAVE ABNORMALITY ABNORMAL RHYTHM ECG PREVIOUS TRACING : 09/27/2016 11.10 Since previous tracing, no significant change noted DOCTOR: Nalini Turcios Interpretating Date/Time 09/30/2016 16:41:37
--- NOTE | 2016-09-30 16:47 | EKG ---
Date Performed: 09/30/2016 Time Performed: 01:04:56 PTAGE: 61 years EKG: Sinus rhythm Nonspecific ST-T wave changes Anterior T wave changes are nonspecific Borderline ECG PREVIOUS TRACING 09/29/2016 18.52.07 Compared to previous tracing, the patient is no longer ta chycardic. DOCTOR: Nalini Turcios Interpretating Date/Time 09/30/2016 16:45:08
--- NOTE | 2016-09-30 16:47 | EKG ---
Date Performed: 09/30/2016 Time Performed: 06:50:26 PTAGE: 61 years EKG: Sinus rhythm . --- Suspect arm lead reversal - only aVF, V1-V6 analyzed --- Septal T wave changes are nonspecific Borderline ECG PREVIOUS TRACING : 09/30/2016 01.04.56 Since previous tracing, no significant change noted DOCTOR: Nalini Turcios Interpretating Date/Time 09/30/2016 16:46:22
[2016-09-30] MEDS ORDERED: FOSPHENYTOIN SODIUM 500 MG PE/10 ML VIAL IV ONE (18:00)
--- NOTE | 2016-09-30 18:03 | HHI.PR ---
Review/Management Diagnosis probable pseudo sz Plan recommend referal to center where in patient 24 hr eeg telemetry is available for further evaluation of probable pseudo seizure will increase phenytoin to therapeutic range and recheck level in am Diagnosis/Plan: Subjective Subjective Comments She had several brief episodes of loc today--relieved with ativan. No post ictal state Active Medications Current Medications Medications (Trade) Dose Ordered Sig/Jannie Route Start Time Stop Time Status Last Admin (NS 1000 ml Inj) 1,000 ml @ 125 mls/hr Q8H IV 09/27/16 11:00 09/30/16 17:01 (Ativan Inj) 1 mg Q2H PRN IV PUSH 09/27/16 12:15 09/29/16 17:09 (NS Flush) 2 ml UNSCH PRN IVF 09/27/16 14:00 (NS Flush) 2 ml BID IVF 09/27/16 21:00 09/30/16 08:33 (Ativan Inj) 2 mg Q10M PRN IV 09/27/16 14:00 09/30/16 17:39 Acetaminophen 650 mg 650 mg Q4H PRN PO 09/27/16 14:00 Piperacillin Sod/ Tazobactam Sod 50 ml @ 100 mls/hr Q6H IV 09/27/16 17:00 09/30/16 16:14 Pharmacy Profile Note 0 ml @ 0 mls/hr UNSCH OTHER 09/27/16 14:00 (Rocephin Inj/NS Inj) 100 ml @ 200 mls/hr Q12H IV 09/27/16 23:00 09/30/16 11:02 (Cymbalta Dr) 60 mg DAILY PO 09/28/16 09:00 09/30/16 08:33 (Levemir Inj) 20 units HS SQ 09/27/16 21:00 09/29/16 21:36 (Deltasone) 10 mg BID PO 09/27/16 21:00 09/30/16 08:33 (Lyrica) 100 mg BID PO 09/27/16 21:00 09/30/16 08:33 (Imitrex) 100 mg DAILY PRN PO 09/27/16 14:15 09/28/16 19:39 (Protonix) 20 mg DAILY PO 09/28/16 09:00 09/30/16 08:33 (D50w (Vial) Inj) 25 ml UNSCH PRN IV PUSH 09/27/16 14:45 Glucagon 1 mg 1 mg UNSCH PRN OTHER 09/27/16 14:45 (Zovirax Inj/NS Inj) 100 ml @ 100 mls/hr Q8H IV 09/27/16 16:00 09/30/16 16:13 Miscellaneous Information Patient in critical care unit? Ass... Q361D XX 09/27/16 18:15 09/27/16 18:15 (Chlorhexidine 2% Cloth) 3 pack DAILY@04 TOP 09/28/16 04:00 10/02/16 04:01 09/30/16 05:00 (Chlorhexidine 2% Cloth) 3 pack UNSCH PRN TOP 09/27/16 18:15 10/02/16 18:06 Heparin Sodium (Porcine) 5000 units 5,000 units Q12HR SQ 09/29/16 21:00 09/30/16 08:33 (Vancomycin Inj/ NS 500 ml Inj) 515 ml @ 257.5 mls/ hr Q12H IV 09/29/16 18:00 09/30/16 17:02 Miscellaneous Information SPECIFIC LAB TO BE DRAWN:VANCO TROUGH DATE TO BE DRDelaney.. ONCE ONCE XX 10/01/16 05:45 10/01/16 05:46 (Cerebyx Inj) 100 mgpe Q6HR IV 09/30/16 00:00 09/30/16 17:04 Allergies Allergies Coded Allergies Bee Sting (Verified Allergy, Severe, Anaphylaxis, 09/27/16) Egg Allergy (Verified Allergy, Severe, SWELLING, 09/27/16) Flu Vaccine (Verified Allergy, Severe, Anaphylaxis, 09/27/16) Sulfa (Verified Allergy, Unknown, RASH, 09/27/16) Exam I&O / VS 09/29/16 09/29/16 09/30/16 15:00 23:00 07:00 Intake Total 1150 ml 1826 ml 1393 ml Output Total 1500 ml 1000 ml 1600 ml Balance -350 ml 826 ml -207 ml Intake Oral 400 ml 320 ml 220 ml IV Total 750 ml 1506 ml 1173 ml Output Urine Total 1500 ml 1000 ml 1600 ml # Bowel Movements 0 0 0 Vital Signs Date Time Temp Pulse Resp B/P Pulse Ox O2 Delivery O2 Flow Rate FiO2 09/30/16 16:00 98.6 83 14 103/56 96 09/30/16 16:00 84 09/30/16 14:00 86 09/30/16 12:00 98.0 78 17 123/58 96 09/30/16 12:00 78 09/30/16 10:00 67 09/30/16 08:00 86 09/30/16 08:00 98.6 82 16 137/70 09/30/16 06:00 87 09/30/16 04:00 79 09/30/16 04:00 97.8 79 16 101/57 93 09/30/16 02:00 91 09/30/16 00:00 79 09/30/16 00:00 97.8 79 16 129/61 94 09/29/16 22:00 88 09/29/16 20:00 95 09/29/16 20:00 98.7 95 16 125/63 92 Exam Comments alert, cooperative, speech normal CN 2-12 normal Motor 5./5 BUE and BLE Objective Micro and Labs Laboratory Tests Test 09/29/16 09/30/16 09/30/16 19:25 00:00 05:25 Troponin I LESS THAN 0.02 LESS THAN 0.02 LESS THAN 0.02 Phenytoin (Dilantin) Level 7.1 Date/Time Procedure Status Source Growth 09/27/16 17:07 Gram Stain - Final Complete Cerebral Spinal Fluid Lumbar Puncture 09/27/16 17:07 CSF Culture - Final Complete Cerebral Spinal Fluid Lumbar Puncture NO GROWTH IN 72 HOURS 09/27/16 11:20 Aerobic Blood Culture - Preliminary Resulted Blood Peripheral NO GROWTH IN 3 DAYS 09/27/16 11:20 Anaerobic Blood Culture - Preliminary Resulted Blood Peripheral NO GROWTH IN 3 DAYS Chavez Eckert PhD MD Sep 30, 2016 18:03
[2016-09-30] MEDS ORDERED: FOSPHENYTOIN INJ 500 MGPE in SODIUM CHLORIDE 0.9% INJ 50 ML IV ONE (20:15)
[2016-09-30] MEDS: INSULIN DETEMIR 100 UNITS/ML VIAL SQ SCH (20:55)
[2016-10-01] VITALS (12 sets, daily range): BP systolic 94–140; BP diastolic 53–82; PULSE 76–98; RESP 16–19; TEMP 97.5–98.9; O2SAT 91–98
[2016-10-01] MEDS: FOSPHENYTOIN SODIUM 100 MG PE/2 ML VIAL IV SCH ×4 (00:28→17:59)
[2016-10-01] MEDS: ACYCLOVIR INJ 650 MG in SODIUM CHLORIDE 0.9% INJ 100 ML IV SCH ×3 (00:37→16:04)
[2016-10-01] MEDS: CHLORHEXIDINE GLUCONATE 2 % 1 PACK (2 CLOTHS)(taper/protocol) TOP SCH (04:00)
[2016-10-01] MEDS: PIPERACIL-TAZO 3.375 GM PREMIX 50 ML IV SCH ×3 (04:10→17:15)
[2016-10-01] MEDS ORDERED: PHARMACY ORDERED LAB XX ONE ×2 (05:45→08:45)
[2016-10-01] MEDS: VANCOMYCIN 1,500 MG/NS 500 ML IV SCH ×4 (06:10→18:00)
[2016-10-01] MEDS: INSULIN ASPART SUPPLEMENTAL SCALE SQ SCH ×4 (06:58→21:00)
[2016-10-01] MEDS: DULoxetine HCl DR 60 MG CAP PO SCH (08:29)
[2016-10-01] MEDS: PANTOPRAZOLE SOD 20 MG DELAYED RELEASE TAB PO SCH (08:29)
[2016-10-01] MEDS: PREGABALIN 100 MG CAP PO SCH ×2 (08:29→21:13)
[2016-10-01] MEDS: predniSONE 10 MG TAB PO SCH ×2 (08:29→21:13)
[2016-10-01] MEDS: HEPARIN SODIUM - SQ 10,000 UNITS/ML VIAL SQ SCH ×2 (08:30→21:13)
[2016-10-01] MEDS: SODIUM CHLORIDE 0.9% FLUSH 5 ML FLUSH IVF SCH ×2 (08:30→21:12)
--- NOTE | 2016-10-01 09:06 | HHI.FPPN ---
Subjective Remarks Pt was sitting up eating breakfast when another event occurred. She mentioned to me that she felt like she was about to have another event before it happened. The event began with increasing tremors of her upper extremities and then whole body involuntary movements of her trunk, which eventually subsided after 2-3 minutes. The patient was very tearful afterwards, asking me why this was happening and what we could do to make it stop. She does have a family history of Parkinson's in her maternal grandmother and Alzheimer's in her dad. She states that her mother had a similar problem but was never diagnosed, she of lung cancer. Objective Vitals Vital Signs Date Time Temp Pulse Resp B/P Pulse Ox O2 Delivery O2 Flow Rate FiO2 10/01/16 08:35 77 10/01/16 08:00 98.3 98 16 94/53 95 10/01/16 07:00 95 Nasal Cannula 2.00 10/01/16 06:00 76 10/01/16 04:00 98.0 88 16 133/61 96 10/01/16 04:00 88 10/01/16 02:00 86 10/01/16 00:00 89 10/01/16 00:00 95 Nasal Cannula 2.00 10/01/16 00:00 97.5 89 16 116/63 91 09/30/16 22:00 83 09/30/16 20:00 89 09/30/16 20:00 98.3 89 18 129/70 96 09/30/16 20:00 96 Nasal Cannula 2.00 09/30/16 18:00 111 09/30/16 16:00 98.6 83 14 103/56 96 09/30/16 16:00 84 09/30/16 14:00 86 09/30/16 12:00 98.0 78 17 123/58 96 09/30/16 12:00 78 09/30/16 10:00 67 I/O 09/30/16 09/30/16 09/30/16 10/01/16 10/01/16 10/01/16 07:00 15:00 23:00 07:00 15:00 23:00 Intake Total 1393 ml 1420 ml 2540 ml 1208 ml Output Total 1600 ml 2200 ml 1425 ml 1275 ml Balance -207 ml -780 ml 1115 ml -67 ml Intake Oral 220 ml 300 ml 610 ml 60 ml IV Total 1173 ml 1120 ml 1930 ml 1148 ml Output Urine Total 1600 ml 2200 ml 1425 ml 1275 ml # Voids 1 # Bowel Movements 0 0 0 0 Result Diagram: 09/29/16 0524 10/01/16 0341 Objective Remarks Gen.: Not acutely in distress. Patient tremulous Head: Normocephalic. Atraumatic. EENT: Pupils equal round and reactive to light. Nose without drainage. Airway intact. Cardiovascular: Regular rate and rhythm. No murmurs, rubs or gallops. Respiratory: Lungs clear to auscultation bilaterally. No wheezes or rhonchi. Abdomen: Soft, nontender, nondistended. No peritoneal signs. Musculoskeletal: No gross deformities. No edema. Skin: No obvious rashes or erythema. Neuro: Sensory and motor grossly intact. Cranial nerves II through XII grossly intact. Psych: Patient alert and interacts appropriately with examiner. Tearful, sad A/P Assessment and Plan 61-year-old female recently diagnosed with pseudoseizures after a complete workup in [facility] in [place], presented to the emergency department with repeat generalized clonic tonic seizure versus pseudoseizure with elevated lactic acid and headaches, febrile with concern for meningitis. Continues to have tremors and involuntary jerking movements of her trunk. Patient is aware and expressed understanding that she is not having epileptic seizures. 1. Possible meningitis Continue acyclovir, vancomycin, Zosyn, Rocephin Lumbar puncture significant for a glucose of 115 and a protein of 56.3. White blood cells 25, red blood cells 2575, these elevated numbers may be due to a traumatic tap. CSF gram stain showed no organisms with few white blood cells. Culture negative to date. 2. Sepsis Patient febrile and tachycardic on admission with possible encephalitis/ meningitis. Lactic acid elevated to 4.1, lactic acidosis has since resolved. IV fluid hydration status post 2 L bolus in the ED, Hep-Lock IV today 10/01 Antibiotics as above 3. Essential tremors and Involuntary jerking movements of trunk Seizure versus pseudoseizure Neurology consulted, appreciate their recommendations Head CT negative, MRI negative, EEG showed no seizure activity even during patient's episodes which occurred during the EEG Patient started on fosphenytoin Ativan when necessary 4. Diabetes mellitus Holding home Glimepiride Continue Lantus 20 units daily at bedtime Sliding scale insulin 5. Fibromyalgia, rheumatoid arthritis, psoriatic arthritis Continue home medications: Cymbalta, prednisone, Lyrica 7. FEN Oral fluids only, patient is eating and drinking appropriately Electrolytes within normal limits, replete when necessary Diabetic diet Heparin 5000 units subcutaneous Discuss[address] with Dr. Slaughter and Dr. Alcala, PGY 2 Discharge Planning 18 on discharge to [facility] in [place], [place] for video EEG and further evaluation Problem List: (1) Seizure Status: Acute (2) Pseudoseizures Status: Chronic (3) Essential tremor Status: Acute (4) Fever Status: Acute (5) Fibromyalgia Status: Chronic (6) DM2 (diabetes mellitus, type 2) Status: Chronic (7) Psoriatic arthritis Status: Chronic (8) Meningitis Status: Acute Problem Qualifiers (1) Fever: Qualified Code: R50.9 - Fever, unspecified fever cause Eko,Shaunna Daniel MD R1 Oct 01, 2016 09:06
[2016-10-01] MEDS: LORazepam 2 MG/ML VIAL IV PRN ×2 (09:25→13:45)
[2016-10-01] MEDS: cefTRIAXone INJ 2,000 MG in SODIUM CHLORIDE 0.9% INJ 100 ML IV SCH (11:00)
[2016-10-01] MEDS: INSULIN DETEMIR 100 UNITS/ML VIAL SQ SCH (21:00)
[2016-10-01] MEDS: LORazepam 2 MG/ML VIAL IV PUSH PRN (21:13)
[2016-10-02] VITALS (8 sets, daily range): BP systolic 97–139; BP diastolic 51–80; PULSE 62–82; RESP 17–20; TEMP 95.7–98.9; O2SAT 94–98
[2016-10-02] MEDS: PIPERACIL-TAZO 3.375 GM PREMIX 50 ML IV SCH ×3 (00:05→12:44)
[2016-10-02] MEDS: ACYCLOVIR INJ 650 MG in SODIUM CHLORIDE 0.9% INJ 100 ML IV SCH ×3 (00:05→16:10)
[2016-10-02] MEDS: cefTRIAXone INJ 2,000 MG in SODIUM CHLORIDE 0.9% INJ 100 ML IV SCH ×2 (00:12→11:58)
[2016-10-02] MEDS: CHLORHEXIDINE GLUCONATE 2 % 1 PACK (2 CLOTHS)(taper/protocol) TOP SCH (04:00)
[2016-10-02] MEDS: FOSPHENYTOIN SODIUM 100 MG PE/2 ML VIAL IV SCH ×4 (06:53→17:32)
[2016-10-02] MEDS: VANCOMYCIN 1,500 MG/NS 500 ML IV SCH ×2 (06:54)
[2016-10-02] MEDS: INSULIN ASPART SUPPLEMENTAL SCALE SQ SCH ×4 (06:56→21:00)
[2016-10-02] MEDS: PANTOPRAZOLE SOD 20 MG DELAYED RELEASE TAB PO SCH (08:38)
[2016-10-02] MEDS: PREGABALIN 100 MG CAP PO SCH ×2 (08:38→21:54)
[2016-10-02] MEDS: DULoxetine HCl DR 60 MG CAP PO SCH (08:38)
[2016-10-02] MEDS: predniSONE 10 MG TAB PO SCH ×2 (08:38→21:54)
[2016-10-02] MEDS: SODIUM CHLORIDE 0.9% FLUSH 5 ML FLUSH IVF SCH ×2 (08:39→21:00)
[2016-10-02] MEDS: HEPARIN SODIUM - SQ 10,000 UNITS/ML VIAL SQ SCH ×2 (08:40→21:54)
--- NOTE | 2016-10-02 13:51 | HHI.FPPN ---
Subjective Remarks No acute events overnight. Afebrile, vital signs stable. Patient states that she feels that she had 3 episodes yesterday. She has no new complaints at this time. (Tonia Pruitt MD R3) Objective Vitals Vital Signs Date Time Temp Pulse Resp B/P Pulse Ox O2 Delivery O2 Flow Rate FiO2 10/02/16 12:55 79 10/02/16 12:37 97.1 81 18 110/61 94 10/02/16 09:38 98 Nasal Cannula 2.00 10/02/16 08:27 97.1 75 17 97/51 94 10/02/16 05:30 98.8 73 18 105/62 95 10/02/16 01:00 98.9 80 18 100/65 98 10/01/16 21:30 98.2 88 19 99/62 97 10/01/16 20:00 96 10/01/16 16:32 98.3 81 18 113/56 97 10/01/16 14:17 98.9 92 18 113/67 98 I/O 10/01/16 10/01/16 10/01/16 10/02/16 10/02/16 10/02/16 07:00 15:00 23:00 07:00 15:00 23:00 Intake Total 1208 ml 400 ml 500 ml Output Total 1275 ml 600 ml 700 ml Balance -67 ml -200 ml -200 ml Intake Oral 60 ml 400 ml 500 ml IV Total 1148 ml Output Urine Total 1275 ml 600 ml 700 ml # Bowel Movements 0 0 0 1 (Tonia Pruitt MD R3) Result Diagram: 09/29/16 0524 10/01/16 0341 Objective Remarks Gen.: Not acutely in distress. Patient tremulous Head: Normocephalic. Atraumatic. EENT: Pupils equal round and reactive to light. Nose without drainage. Airway intact. Cardiovascular: Regular rate and rhythm. No murmurs, rubs or gallops. Respiratory: Lungs clear to auscultation bilaterally. No wheezes or rhonchi. Abdomen: Soft, nontender, nondistended. No peritoneal signs. Musculoskeletal: No gross deformities. No edema. Skin: No obvious rashes or erythema. Neuro: Sensory and motor grossly intact. Cranial nerves II through XII grossly intact. Psych: Patient alert and interacts appropriately with examiner. (Tonia Pruitt MD R3) A/P Assessment and Plan 61-year-old female recently diagnosed with pseudoseizures after a complete workup in [facility] in [place], presented to the emergency department with repeat generalized clonic tonic seizure versus pseudoseizure with elevated lactic acid and headaches, febrile with concern for meningitis. Continues to have tremors and involuntary jerking movements of her trunk. Patient is aware and expressed understanding that she is not having epileptic seizures. 1. Possible meningitis. Continue acyclovir Discontinue vancomycin, Zosyn, Rocephin as cultures are negative and if patient has any type of meningitis it is likely viral in origin Lumbar puncture significant for a glucose of 115 and a protein of 56.3. White blood cells 25, red blood cells 2575, these elevated numbers may be due to a traumatic tap. CSF gram stain showed no organisms with few white blood cells. Final culture negative. 2. Sepsisresolved Patient febrile and tachycardic on admission with possible encephalitis/ meningitis. Lactic acid elevated to 4.1, lactic acidosis has since resolved. IV fluid hydration status post 2 L bolus in the ED, Hep-Lock IV starting 10/01 Antibiotics as above 3. Essential tremors and Involuntary jerking movements of trunk Seizure versus pseudoseizure Neurology consulted, appreciate their recommendations Head CT negative, MRI negative, EEG showed no seizure activity even during patient's episodes which occurred during the EEG Patient started on fosphenytoin Discontinue Ativan as it does not improve patient's tremors and involuntary jerking movements 4. Diabetes mellitus Holding home Glimepiride Continue Lantus 20 units daily at bedtime Sliding scale insulin 5. Fibromyalgia, rheumatoid arthritis, psoriatic arthritis Continue home medications: Cymbalta, prednisone, Lyrica 7. FEN Oral fluids only, patient is eating and drinking appropriately Electrolytes within normal limits, replete when necessary Diabetic diet Heparin 5000 units subcutaneous every 8 hours Discharge Planning 18 on discharge to [facility] in [place], [place] for video EEG and further evaluation (Tonia Pruitt MD R3) Attending Attestation Patient seen and examined with the resident team. Case reviewed and discussed Agree with plan of care as discussed with me and documented in the resident note (Sharon Slaughter MD) Problem List: (1) Seizure Status: Acute (2) Pseudoseizures Status: Chronic (3) Essential tremor Status: Acute (4) Fever Status: Acute (5) Fibromyalgia Status: Chronic (6) DM2 (diabetes mellitus, type 2) Status: Chronic (7) Psoriatic arthritis Status: Chronic (8) Meningitis Status: Acute (Tonia Pruitt MD R3) Problem Qualifiers (1) Fever: Qualified Code: R50.9 - Fever, unspecified fever cause Tonia Pruitt MD R3 Oct 02, 2016 13:51 Sharon Slaughter MD Oct 02, 2016 16:26
[2016-10-02] MEDS: INSULIN DETEMIR 100 UNITS/ML VIAL SQ SCH (21:00)
[2016-10-03] MEDS: ACYCLOVIR INJ 650 MG in SODIUM CHLORIDE 0.9% INJ 100 ML IV SCH ×4 (03:02→22:46)
[2016-10-03] MEDS: FOSPHENYTOIN SODIUM 100 MG PE/2 ML VIAL IV SCH ×4 (03:02→17:04)
[2016-10-03] MEDS: HEPARIN SODIUM - SQ 10,000 UNITS/ML VIAL SQ SCH ×3 (05:55→21:01)
[2016-10-03 06:01] VITALS: BP 100/63; PULSE 79; RESP 18; TEMP 97.1; O2SAT 96
[2016-10-03] MEDS: INSULIN ASPART SUPPLEMENTAL SCALE SQ SCH ×4 (07:00→21:00)
[2016-10-03 08:13] VITALS: BP 191/93; PULSE 70; RESP 20; TEMP 96.7; O2SAT 97
[2016-10-03] MEDS: SODIUM CHLORIDE 0.9% FLUSH 5 ML FLUSH IVF SCH ×2 (08:37→20:59)
[2016-10-03] MEDS: PANTOPRAZOLE SOD 20 MG DELAYED RELEASE TAB PO SCH (08:37)
[2016-10-03] MEDS: PREGABALIN 100 MG CAP PO SCH ×2 (08:37→21:02)
[2016-10-03] MEDS: predniSONE 10 MG TAB PO SCH ×2 (08:37→21:01)
[2016-10-03] MEDS: DULoxetine HCl DR 60 MG CAP PO SCH (08:44)
--- NOTE | 2016-10-03 10:52 | HHI.FPPN ---
Subjective Remarks Patient had one seizure like episode yesterday afternoon. None since then. No chest pain, fever, chills, nausea, vomiting, diarrhea. She is asking to go home to be able to perform her 24-hour video EEG. (Chavez Alcala MD R2) Objective Vitals Vital Signs Date Time Temp Pulse Resp B/P Pulse Ox O2 Delivery O2 Flow Rate FiO2 10/03/16 08:13 96.7 70 20 191/93 97 10/03/16 06:01 97.1 79 18 100/63 96 10/02/16 22:00 82 10/02/16 20:00 98.6 78 20 106/56 95 10/02/16 16:00 95.7 62 18 139/80 98 10/02/16 12:55 79 10/02/16 12:37 97.1 81 18 110/61 94 I/O 10/02/16 10/02/16 10/02/16 10/03/16 10/03/16 10/03/16 07:00 15:00 23:00 07:00 15:00 23:00 Intake Total 500 ml 480 ml Output Total 700 ml Balance -200 ml 480 ml Intake Oral 500 ml 480 ml Output Urine Total 700 ml # Voids 2 1 # Bowel Movements 0 1 1 1 (Chavez Alcala MD R2) Result Diagram: 09/29/16 0524 10/01/16 0341 Objective Remarks Gen.: Not acutely in distress. Patient less tremulous Head: Normocephalic. Atraumatic. EENT: Pupils equal round and reactive to light. Nose without drainage. Airway intact. Cardiovascular: Regular rate and rhythm. No murmurs, rubs or gallops. Respiratory: Lungs clear to auscultation bilaterally. No wheezes or rhonchi. Abdomen: Soft, nontender, nondistended. No peritoneal signs. Musculoskeletal: No gross deformities. No edema. Skin: No obvious rashes or erythema. Neuro: Sensory and motor grossly intact. Cranial nerves II through XII grossly intact. Psych: Patient alert and interacts appropriately with examiner. (Chavez Alcala MD R2) A/P Assessment and Plan 61-year-old female recently diagnosed with pseudoseizures after a complete workup in [facility] in [place], presented to the emergency department with repeat generalized clonic tonic seizure versus pseudoseizure with elevated lactic acid and headaches, febrile with concern for meningitis. Continues to have tremors and involuntary jerking movements of her trunk. Patient is aware and expressed understanding that she is not having epileptic seizures. 1. Possible meningitis. Continue acyclovir Discontinue vancomycin, Zosyn, Rocephin (10/02) as cultures are negative and if patient has any type of meningitis it is likely viral in origin Lumbar puncture significant for a glucose of 115 and a protein of 56.3. White blood cells 25, red blood cells 2575, these elevated numbers may be due to a traumatic tap. CSF gram stain showed no organisms with few white blood cells. Final culture negative. 2. Sepsisresolved Patient febrile and tachycardic on admission with possible encephalitis/ meningitis. Lactic acid elevated to 4.1, lactic acidosis has since resolved. IV fluid hydration status post 2 L bolus in the ED, Hep-Lock IV starting 10/01 Antibiotics as above 3. Essential tremors and Involuntary jerking movements of trunk Seizure versus pseudoseizure Neurology consulted, appreciate their recommendations Head CT negative, MRI negative, EEG showed no seizure activity even during patient's episodes which occurred during the EEG Patient started on fosphenytoin Discontinue Ativan as it does not improve patient's tremors and involuntary jerking movements 4. Diabetes mellitus Holding home Glimepiride Continue Lantus 20 units daily at bedtime Sliding scale insulin 5. Fibromyalgia, rheumatoid arthritis, psoriatic arthritis Continue home medications: Cymbalta, prednisone, Lyrica 7. FEN Oral fluids only, patient is eating and drinking appropriately Electrolytes within normal limits, replete when necessary Diabetic diet Heparin 5000 units subcutaneous every 8 hours Discharge Planning 18 on discharge to [facility] in [place], [place] for video EEG and further evaluation (Chavez Alcala MD R2) Attending Attestation Patient seen and examined. Case reviewed and discussed Agree with plan of care as discussed with me and documented in the resident note (Sharon Slaughter MD) Problem List: (1) Seizure Status: Acute (2) Pseudoseizures Status: Chronic (3) Essential tremor Status: Acute (4) Fever Status: Acute (5) Fibromyalgia Status: Chronic (6) DM2 (diabetes mellitus, type 2) Status: Chronic (7) Psoriatic arthritis Status: Chronic (8) Meningitis Status: Acute (Chavez Alcala MD R2) Problem Qualifiers (1) Fever: Qualified Code: R50.9 - Fever, unspecified fever cause Chavez Alcala MD R2 Oct 03, 2016 10:52 Sharon Slaughter MD Oct 04, 2016 14:44
[2016-10-03 12:23] VITALS: BP 105/69; PULSE 88; RESP 20; TEMP 98.8; O2SAT 97
[2016-10-03] MEDS: ACETAMINOPHEN 325 MG TAB PO PRN ×2 (15:45→22:46)
[2016-10-03] MEDS: SUMAtriptan SUCCINATE 50 MG TAB PO PRN (17:03)
--- NOTE | 2016-10-03 17:48 | HHI.PR ---
Review/Management Diagnosis probable pseudo sz Plan recommend referal to center where in patient 24 hr eeg telemetry is available for further evaluation of probable pseudo seizure continue phenytoin Diagnosis/Plan: Subjective Subjective Comments No acute events reported No episodes since yesterday am Active Medications Current Medications Medications (Trade) Dose Ordered Sig/Jannie Route Start Time Stop Time Status Last Admin (NS Flush) 2 ml UNSCH PRN IVF 09/27/16 14:00 (NS Flush) 2 ml BID IVF 09/27/16 21:00 10/03/16 08:37 (Tylenol) 650 mg Q4H PRN PO 09/27/16 14:00 10/03/16 15:45 (Cymbalta Dr) 60 mg DAILY PO 09/28/16 09:00 10/03/16 08:44 (Levemir Inj) 20 units HS SQ 09/27/16 21:00 10/02/16 21:00 (Deltasone) 10 mg BID PO 09/27/16 21:00 10/03/16 08:37 (Lyrica) 100 mg BID PO 09/27/16 21:00 10/03/16 08:37 (Imitrex) 100 mg DAILY PRN PO 09/27/16 14:15 10/03/16 17:03 (Protonix) 20 mg DAILY PO 09/28/16 09:00 10/03/16 08:37 (D50w (Vial) Inj) 25 ml UNSCH PRN IV PUSH 09/27/16 14:45 Glucagon 1 mg 1 mg UNSCH PRN OTHER 09/27/16 14:45 (Zovirax Inj/NS Inj) 100 ml @ 100 mls/hr Q8H IV 09/27/16 16:00 10/03/16 15:45 Miscellaneous Information Patient in critical care unit? Ass... Q361D XX 09/27/16 18:15 09/27/16 18:15 (Cerebyx Inj) 100 mgpe Q6HR IV 09/30/16 00:00 10/03/16 17:04 (Heparin Inj) 5,000 units Q8HR SQ 10/02/16 22:00 10/03/16 12:42 Allergies Allergies Coded Allergies Bee Sting (Verified Allergy, Severe, Anaphylaxis, 09/27/16) Egg Allergy (Verified Allergy, Severe, SWELLING, 09/27/16) Flu Vaccine (Verified Allergy, Severe, Anaphylaxis, 09/27/16) Sulfa (Verified Allergy, Unknown, RASH, 09/27/16) Exam I&O / VS 10/02/16 10/02/16 10/03/16 15:00 23:00 07:00 Intake Total 480 ml Balance 480 ml Intake Oral 480 ml # Voids 2 1 # Bowel Movements 1 1 1 Vital Signs Date Time Temp Pulse Resp B/P Pulse Ox O2 Delivery O2 Flow Rate FiO2 10/03/16 12:23 98.8 88 20 105/69 97 10/03/16 08:13 96.7 70 20 191/93 97 10/03/16 06:01 97.1 79 18 100/63 96 10/02/16 22:00 82 10/02/16 20:00 98.6 78 20 106/56 95 Exam Comments alert, cooperative, speech normal CN 2-12 normal Motor 5./5 BUE and Chavez Ritter PhD Oct 03, 2016 17:48
[2016-10-03 19:15] VITALS: PULSE 75
[2016-10-03 20:44] VITALS: BP 117/63; PULSE 82; RESP 18; TEMP 97.6; O2SAT 96
[2016-10-03] MEDS: INSULIN DETEMIR 100 UNITS/ML VIAL SQ SCH (21:01)
[2016-10-03] MEDS: PHENYTOIN SODIUM 100 MG CAP PO SCH (21:02)
[2016-10-04 00:47] VITALS: BP 104/53; PULSE 77; RESP 18; TEMP 96.8; O2SAT 94
[2016-10-04 05:45] VITALS: BP 95/51; PULSE 68; RESP 20; TEMP 97.1; O2SAT 96
[2016-10-04] MEDS: INSULIN ASPART SUPPLEMENTAL SCALE SQ SCH ×3 (06:45→16:00)
[2016-10-04] MEDS: HEPARIN SODIUM - SQ 10,000 UNITS/ML VIAL SQ SCH ×2 (06:46→12:49)
[2016-10-04 08:10] VITALS: PULSE 69
[2016-10-04 08:27] VITALS: BP 100/55; PULSE 73; RESP 20; TEMP 97.1; O2SAT 97
[2016-10-04] MEDS: predniSONE 10 MG TAB PO SCH (09:37)
[2016-10-04] MEDS: SODIUM CHLORIDE 0.9% FLUSH 5 ML FLUSH IVF SCH (09:37)
[2016-10-04] MEDS: ACYCLOVIR INJ 650 MG in SODIUM CHLORIDE 0.9% INJ 100 ML IV SCH (09:37)
[2016-10-04] MEDS: PANTOPRAZOLE SOD 20 MG DELAYED RELEASE TAB PO SCH (09:38)
[2016-10-04] MEDS: PHENYTOIN SODIUM 100 MG CAP PO SCH (09:39)
[2016-10-04] MEDS: DULoxetine HCl DR 60 MG CAP PO SCH (09:39)
[2016-10-04] MEDS: PREGABALIN 100 MG CAP PO SCH (09:39)
--- NOTE | 2016-10-04 10:01 | HHI.FPPN ---
Subjective Remarks Ms Juan feels great today and wants to go home. She did not have any events since 11am on 10/02. She spoke with her neurologist yesterday who will arrange video EEG for her at home. (Shaunna Syed MD R1) Objective Vitals Vital Signs Date Time Temp Pulse Resp B/P Pulse Ox O2 Delivery O2 Flow Rate FiO2 10/04/16 08:27 97.1 73 20 100/55 97 10/04/16 05:45 97.1 68 20 95/51 96 10/04/16 00:47 96.8 77 18 104/53 94 10/03/16 23:46 18 10/03/16 20:44 97.6 82 18 117/63 96 10/03/16 19:15 75 10/03/16 12:23 98.8 88 20 105/69 97 I/O 10/03/16 10/03/16 10/03/16 10/04/16 10/04/16 10/04/16 07:00 15:00 23:00 07:00 15:00 23:00 Intake Total 480 ml Balance 480 ml Intake Oral 480 ml # Voids 1 2 2 # Bowel Movements 1 (Shaunna Syed MD R1) Result Diagram: 10/01/16 0341 Objective Remarks Gen.: Not acutely in distress. Patient less tremulous Head: Normocephalic. Atraumatic. EENT: Pupils equal round and reactive to light. Nose without drainage. Airway intact. Cardiovascular: Regular rate and rhythm. No murmurs, rubs or gallops. Respiratory: Lungs clear to auscultation bilaterally. No wheezes or rhonchi. Abdomen: Soft, nontender, nondistended. No peritoneal signs. Musculoskeletal: No gross deformities. No edema. Skin: No obvious rashes or erythema. Neuro: Sensory and motor grossly intact. Cranial nerves II through XII grossly intact. Psych: Patient alert and interacts appropriately with examiner. (Shaunna Syed MD R1) A/P Assessment and Plan 61-year-old female recently diagnosed with pseudoseizures after a complete workup in [facility] in [place], presented to the emergency department with repeat generalized clonic tonic seizure versus pseudoseizure with elevated lactic acid and headaches, febrile with concern for meningitis. No involuntary shaking, jerking movements since Wednesday 10/04. Patient is aware and expressed understanding that she is not having epileptic seizures. 1. Possible meningitis. DC acyclovir today 10/04 Discontinue vancomycin, Zosyn, Rocephin (10/02) as cultures are negative and if patient has any type of meningitis it is likely viral in origin Lumbar puncture significant for a glucose of 115 and a protein of 56.3. White blood cells 25, red blood cells 2575, these elevated numbers may be due to a traumatic tap CSF gram stain showed no organisms with few white blood cells. Final culture negative. 2. Sepsisresolved Patient febrile and tachycardic on admission with possible encephalitis/ meningitis. Lactic acid elevated to 4.1, lactic acidosis has since resolved. IV fluid hydration status post 2 L bolus in the ED, Hep-Lock IV starting 10/01 3. Essential tremors and Involuntary jerking movements of trunk Seizure versus pseudoseizure Neurology consulted, appreciate their recommendations Head CT negative, MRI negative, EEG showed no seizure activity even during patient's episodes which occurred during the EEG Patient started on Dilantin 200 mg by mouth twice a day 4. Diabetes mellitus Holding home Glimepiride Continue Lantus 20 units daily at bedtime Sliding scale insulin 5. Fibromyalgia, rheumatoid arthritis, psoriatic arthritis Continue home medications: Cymbalta, prednisone, Lyrica 7. FEN Oral fluids only, patient is eating and drinking appropriately Electrolytes within normal limits, replete when necessary Diabetic diet Heparin 5000 units subcutaneous every 8 hours Discharge Planning Pending discharge to [facility] [place] [facility] in [place], [place] for video EEG and further evaluation. Possible discharge home today, pending neurology approval. Patient's neurologist will schedule video EEG at home if symptoms recur. (Shaunna Syed MD R1) Attending Attestation Patient seen and examined. Case reviewed and discussed Agree with plan of care as discussed with me and documented in the resident note. (Sharon Slaughter MD) Problem List: (1) Seizure Status: Acute (2) Pseudoseizures Status: Chronic (3) Essential tremor Status: Acute (4) Fever Status: Acute (5) Fibromyalgia Status: Chronic (6) DM2 (diabetes mellitus, type 2) Status: Chronic (7) Psoriatic arthritis Status: Chronic (8) Meningitis Status: Acute (Shaunna Syed MD R1) Problem Qualifiers (1) Fever: Qualified Code: R50.9 - Fever, unspecified fever cause MikeoShaunna MD R1 Oct 04, 2016 10:01 Sharon Slaughter MD Oct 07, 2016 12:06
[2016-10-04] MEDS: SUMAtriptan SUCCINATE 50 MG TAB PO PRN (10:50)
[2016-10-04 12:34] VITALS: BP 122/59; PULSE 77; RESP 20; TEMP 97.4; O2SAT 97
[2016-10-04 17:24] VITALS: BP 113/55; PULSE 77; RESP 20; TEMP 96.6; O2SAT 96
[2016-10-04] MEDS ORDERED: DILA100C PO (17:46)
--- NOTE | 2016-10-08 14:40 | HHI.DS ---
Discharge Summary Admission Date Sep 27, 2016 at 13:07 Admitting Diagnosis seizure. Fever. (1) Seizure Diagnosis: Principal (2) Pseudoseizures Diagnosis: Principal (3) Essential tremor Diagnosis: Principal (4) Fever Diagnosis: Principal (5) Fibromyalgia Diagnosis: Secondary (6) DM2 (diabetes mellitus, type 2) Diagnosis: Secondary (7) Psoriatic arthritis Diagnosis: Secondary (8) Meningitis Diagnosis: Secondary Brief History 61-year-old female with a past medical history significant for recent hospitalization, discharged 09/08/16 with a diagnosis of pseudoseizures, who presents to the emergency department after having a witnessed seizure-like episode this morning. The patient was in her usual state of health which she describes as having tremulous activity consistently at baseline when she started shaking all over in her chair. The patient does have memory of the event and did not lose continence of bowel or bladder. She did not bite her tongue but states she did bite the inside of her right cheek. The patient says after the event her vision was blurry and she had a headache. Her called 911 and in the ambulance on the way to the hospital the EMT noted left- sided facial droop that had resolved by the time the patient arrived in the emergency department. Stroke code was initially called however this was downgraded to seizure activity. The patient was seen by neurology, to whom she is well known, and EEG and MRI were ordered. The patient was started on fosphenytoin. She also was given 6 mg of Ativan in the emergency department. On her arrival to the ED, the patient had a rectal temperature of 101.7. She did not have any nuchal rigidity on exam although does complain of a headache. She was started on vancomycin, Zosyn, Rocephin and acyclovir. Lumbar puncture was ordered. In the emergency department the patient is able to give me a complete history despite having 2 seizure-like episodes during my interview. During these episodes her body contracts and shakes. The episodes then resolved and the patient returns to her baseline mentation. PE at Discharge Gen.: Not acutely in distress. Patient less tremulous Head: Normocephalic. Atraumatic. EENT: Pupils equal round and reactive to light. Nose without drainage. Airway intact. Cardiovascular: Regular rate and rhythm. No murmurs, rubs or gallops. Respiratory: Lungs clear to auscultation bilaterally. No wheezes or rhonchi. Abdomen: Soft, nontender, nondistended. No peritoneal signs. Musculoskeletal: No gross deformities. No edema. Skin: No obvious rashes or erythema. Neuro: Sensory and motor grossly intact. Cranial nerves II through XII grossly intact. Psych: Patient alert and interacts appropriately with examiner. Hospital Course Ms Juan was worked up for meningitis, CSF and blood cultures were negative. She was treated empirically with antibiotics and acyclovir for several days. Neurology was consulted on the first day of admission and followed her throughout her stay in the hospital. EEG was negative even when performed during one of these episodes, and the patient and management team agreed that she was not having epileptic seizures. However, she continued to intermittently experience involuntary jerking movements of her extremities and trunk. The decision was made to transfer her to [facility] in [facility] for video EEG. The patient spent several days in the hospital waiting for a transfer to [facility]. With time, the events reduced in frequency and eventually diminished. Considering that she was afebrile with no signs of infection, she was discharged home in stable condition with close follow-up with her home neurologist. Pt Condition on Discharge: Stable Discharge Disposition: Discharge Home Discharge Instructions DIET: Follow Instructions for: As Tolerated, No Restrictions Activities you can perform: Regular-No Restrictions Follow up Referrals: Appointment for Follow Up - 2 Weeks Neurology - 1 Week with Chavez Eckert PhD MD New Medications: Phenytoin Extended (Dilantin) 100 Mg Cap 200 MG PO BID #60 CAP Continued Medications: Alprazolam (Xanax) 0.5 Mg Tab 0.5 MG PO Q12HR PRN ANXIETY Ref [address] (Aspirin EC) 81 Mg Tabdr 81 MG PO DAILY Ref 0 TAB Dexlansoprazole (Dexilant) 30 Mg Cap 30 MG PO DAILY #30 Ref [address] (Cymbalta DR) 60 Mg Capdr 60 MG PO DAILY #30 Ref 0 CAP Glimepiride (Glimepiride) 1 Mg Tab 1 MG PO DAILY Take with breakfast or first main meal Blood Sugar Management #30 Ref 0 TAB Hydrocodone-Acetaminophen (Lortab) 10-325 Mg Tab 1 TAB PO Q6H PRN PAIN Ref 0 TAB Infliximab Inj (Remicade Inj) 100 Mg Inj [id number] Insulin Glargine Inj (Lantus Inj) 1,000 Unit/10 Ml Vial 20 UNITS SQ HS Blood Sugar Management Ref 0 VIAL Insulin Lispro (Human) Inj (Humalog Kwikpen Pen Inj) 300 Unit/3 Ml Pen 1 UNITS SQ DIRECTED Blood Sugar Management Ref 0 PEN Prednisone (Prednisone) 10 Mg Tab 10 MG PO BID Ref 0 TAB Pregabalin (Lyrica) 100 Mg Cap 100 MG PO BID #60 Ref 0 CAP Sumatriptan (Imitrex) 100 Mg Tab 100 MG PO ONCE If a satisfactory response has not been obtained at 2 hours, a second dose may be administered PRN MIGRAINE HEADACHE Ref 0 TAB Shaunna Syed MD R1 Oct 08, 2016 14:40
== END 2016-10-04 18:57 | disposition home or self-care (01) | DRG 872 ==
LOC: NEPA 10:40 → NEDA 13:07 → HIMW 15:30 → N05B 10-01 13:56
PROVIDERS: ADMIT Family Medicine; ATTEND Family Medicine
PROC: 009U3ZX Drainage of Spinal Canal, Percutaneous Approach, Diagnostic (ICD-10-PCS; principal; 2016-09-27)
DX: A41.9 Sepsis, unspecified organism (principal); E87.2 Acidosis; E11.40 Type 2 diabetes mellitus with diabetic neuropathy, unspecified; R56.9 Unspecified convulsions; D86.9 Sarcoidosis, unspecified; A87.9 Viral meningitis, unspecified; I48.91 Unspecified atrial fibrillation; G25.0 Essential tremor; F32.9 Major depressive disorder, single episode, unspecified; M79.7 Fibromyalgia; M06.9 Rheumatoid arthritis, unspecified; L40.50 Arthropathic psoriasis, unspecified; J45.909 Unspecified asthma, uncomplicated; K21.9 Gastro-esophageal reflux disease without esophagitis; H54.62 Unqualified visual loss, left eye, normal vision right eye; F41.9 Anxiety disorder, unspecified; Z79.4 Long term (current) use of insulin; Z82.0 Family history of epilepsy and other diseases of the nervous system; Z86.73 Personal history of transient ischemic attack (TIA), and cerebral infarction without residual deficits; Z87.891 Personal history of nicotine dependence; Z88.2 Allergy status to sulfonamides; Z88.7 Allergy status to serum and vaccine; Z91.030 Bee allergy status; Z91.012 Allergy to eggs; Z98.1 Arthrodesis status
CPT/HCPCS: 51702; 62270; 70450; 70553; 71010; 76937; 77003; 80053; 80185; 80202; 80307; 80320; 81001; 82435; 82550; 82565; 82945; 82947; 82948; 83605; 83735; 84100; 84132; 84146; 84157; 84295; 84443; 84484; 84520; 85025; 85027; 85610; 85730; 87040; 87070; 87205; 87529; 87641; 89051; 93005; 95819; 96365; 96368; 96375; A9579; J0133; J0696; J1644; J1815; J2060; J2543; J3370; J7030; J7040; J7050; J7512; Q2009

== ENCOUNTER 2016-12-14 01:29 | Emergency (ER) | payer MEDICARE, OTHER ==
[2016-12-14 01:28] VITALS: O2SAT 100
[~2016-12-14 01:29] MED LIST changes: -ACYC400T PO; +ALPR.5 PO; -AMBI10TA PO; -DICL1GEL TOPICAL; +DILA100C PO; -FLUT1SPR9 EACH NARE; -LORA-392 PO; -PROM25TA5 PO; -SYMB160A INH; -VENTAER INH
[2016-12-14 01:35] VITALS: BP 125/69; PULSE 105; RESP 21; O2SAT 95
[2016-12-14] MEDS ORDERED: SODIUM CHLOR 0.9% 1000 ML INJ 1,000 ML IV ONE (01:35)
[2016-12-14 01:48] LABS: I-STAT POTASSIUM 3.4 MMOL/L (3.5-4.9); I-STAT SODIUM 140 MMOL/L (138-146)
[2016-12-14 01:50] LABS: AUTOMATED NEUTROPHIL # 4.5 TH/MM3 (1.8-7.7); BASOPHIL # 0.1 TH/MM3 (0-0.2); BASOPHIL % 1.2 % (0.0-2.0); EOSINOPHIL # 0.2 TH/MM3 (0-0.4); EOSINOPHIL % 2.1 % (0.0-4.0); HEMATOCRIT 40.3 % (35.0-46.0); HEMO FLAGS DIFF FINAL; LYMPH % 34.8 % (9.0-44.0); LYMPHOCYTE # 2.9 TH/MM3 (1.0-4.8); MEAN CELL VOLUME 82.4 FL (80.0-100.0); MEAN CORPUSCULAR HEMOGLOBIN 26.8 PG (27.0-34.0); MEAN CORPUSCULAR HGB CONC 32.5 % (32.0-36.0); MONO % 7.9 % (0.0-8.0); PLATELET COUNT 197 TH/MM3 (150-450); RED BLOOD COUNT 4.89 MIL/MM3 (4.00-5.30); RED CELL DISTRIBUTION WIDTH 13.8 % (11.6-17.2); WHITE BLOOD COUNT 8.4 TH/MM3 (4.0-11.0)
--- NOTE | 2016-12-14 01:54 | RADRPT ---
EXAM DATE/TIME: 12/14/2016 01:39 [facility] COMPARISON: CT BRAIN W/O CONTRAST, September 27, 2016, 11:59. INDICATIONS : Stroke Alert. Left facial droop with weakness. RADIATION DOSE: 37.51 CTDIvol (mGy) This report was called by to Dr. Olmedo at 0150 MEDICAL HISTORY : None SURGICAL HISTORY : None. ENCOUNTER: Initial ACUITY: 1 day PAIN SCALE: 0/10 LOCATION: cranial TECHNIQUE: Multiple contiguous axial images were obtained of the head. Using automated exposure control and adj ustment of the mA and/or kV according to patient size, radiation dose was kept as low as reasonably a chievable to obtain optimal diagnostic quality images. FINDINGS: CEREBRUM: The ventricles are normal for age. No evidence of midline shift, mass lesion, hemorrhage or acute in farction. No extra-axial fluid collections are seen. POSTERIOR FOSSA: The cerebellum and brainstem are intact. The 4th ventricle is midline. The cerebellopontine angle i s unremarkable. EXTRACRANIAL: The visualized portion of the orbits is intact. SKULL: The calvaria is intact. No evidence of skull fracture. CONCLUSION: No acute disease. Aleksandr Nolasco Jr., MD on December 14, 2016 at 1:49 Board Certified Radiologist. This report was verified electronically.
--- NOTE | 2016-12-14 01:59 | RADRPT ---
EXAM DATE/TIME: 12/14/2016 01:51 [facility] COMPARISON: CHEST SINGLE AP, September 27, 2016, 11:17. INDICATIONS : Stroke alert. MEDICAL HISTORY : None. SURGICAL HISTORY : None. ENCOUNTER: Initial ACUITY: 1 day PAIN SCORE: 0/10 LOCATION: Bilateral chest FINDINGS: A single view of the chest demonstrates the lungs to be symmetrically aerated without evidence of mas s, infiltrate or effusion. The cardiomediastinal contours are unremarkable. Osseous structures are intact. CONCLUSION: No acute disease. Aleksandr Nolasco Jr., MD on December 14, 2016 at 1:58 Board Certified Radiologist. This report was verified electronically.
--- NOTE | 2016-12-14 02:02 | PD ---
HPI Chief Complaint: Stroke Alert Time Seen by Provider: 01:34 Travel History International Travel<30 days: No Contact w/Intl Traveler<30days: No Traveled to known affect area: No History of Present Illness HPI 61-year-old female was brought in by EMS for stroke alert. Patient was reported having left-sided facial drooping about 35 minutes prior to arrival. EMS noticed some mild left-sided facial drooping upon arrival to the scene. Patient was transported to ED for evaluation. Upon arrival patient has no facial drooping. Patient was able to tell me the history upon arrival. Patient complains of headache in the back of the head. Patient denies any visual change. Patient states that her speech is normal. Patient denies any focal weakness or numbness of extremity. Patient has history of seizure, pseudoseizure, essential tremors, fibromyalgia, type 2 diabetes, psoriatic arthritis. Patient had 2 EEG done in the past which were normal. EEG was done during the seizure episodes which was normal also. Patient was seen by Dr. Eckert, neurologist. Dr. Eckert recommended referral to a Center where inpatient 24 hour EEG telemetry available however patient has not done so. Patient was advised to take Dilantin 200 mg twice a day. Patient also was on Xanax 0.5 mg twice a day, aspirin 81 g daily, Dexilant 30 mg daily, Cymbalta DR 60 mg daily, Glimepiride 1 mg daily, Remicade, insulin, prednisone, Lyrica and Imitrex. Patient states that she stopped taking Dilantin after she was discharged home at last visit. PFSH Past Medical History Hx Anticoagulant Therapy: Yes Arthritis: Yes (PSORIATIC) Asthma: Yes Autoimmune Disease: Yes (psoriosis, fibromyalgia) Anxiety: Yes Depression: Yes Heart Rhythm Problems: Yes (afib) Cancer: No Cardiovascular Problems: Yes High Cholesterol: Yes Chest Pain: Yes Congestive Heart Failure: No COPD: No Cerebrovascular Accident: Yes (2 TIA, 2008, 2015) Diabetes: Yes (2014) Endocrine: Yes Fibromyalgia: Yes Gastrointestinal Disorders: Yes GERD: Yes Genitourinary: No Headaches: Yes Hiatal Hernia: No Hypertension: No Immune Disorder: No Implanted Vascular Access Dvce: Yes (LOOP RECORDER) Musculoskeletal: Yes (CERVICAL FISION DISKECTOMY CAPAL TUNNEL) Neurologic: Yes Psychiatric: Yes Reproductive: No Respiratory: Yes Migraines: Yes Myocardial Infarction: No Seizures: Yes (this admit 09/06) Sleep Apnea: No Thyroid Disease: No Ulcer: No Past Surgical History Abdominal Surgery: Yes (gallbladder, apx) AICD: No Appendectomy: Yes Arteriovenous Shunt: No Body Medical Devices: heart recorder Cardiac Surgery: Yes (cath;loop recorder) Cholecystectomy: Yes Ear Surgery: No Endocrine Surgery: No Eye Surgery: No Genitourinary Surgery: No Gynecologic Surgery: Yes (hysterectomy) Hysterectomy: Yes Insulin Pump: No Joint Replacement: No Neurologic Surgery: No Oral Surgery: Yes (T&A) Pacemaker: No Thoracic Surgery: No Tonsillectomy: Yes Other Surgery: Yes Social History Alcohol Use: No Tobacco Use: No Substance Use: No Allergies-Medications (Allergen,Severity, Reaction): Coded Allergies: Bee Sting (Verified Allergy, Severe, Anaphylaxis, 12/14/16) Egg Allergy (Verified Allergy, Severe, SWELLING, 12/14/16) Flu Vaccine (Verified Allergy, Severe, Anaphylaxis, 12/14/16) Sulfa (Verified Allergy, Unknown, RASH, 12/14/16) Reported Meds & Prescriptions Reported Meds & Active Scripts Active Reported Xanax (Alprazolam) 0.5 Mg Tab 0.5 Mg PO Q12HR PRN Imitrex (Sumatriptan Succinate) 100 Mg Tab 100 Mg PO ONCE PRN If a satisfactory response has not been obtained at 2 hours, a second dose may be administered Prednisone 10 Mg Tab 10 Mg PO PRN Lyrica (Pregabalin) 100 Mg Cap 100 Mg PO BID Lantus Inj (Insulin Glargine) 1,000 Unit/10 Ml Vial 20 Units SQ HS Lortab (Hydrocodone-Acetaminophen) 10-325 Mg Tab 1 Tab PO Q6H PRN Humalog Kwikpen Pen Inj (Insulin Lispro (Human) Inj) 300 Unit/3 Ml Pen 1 Units SQ DIRECTED Glimepiride 1 Mg Tab 1 Mg PO DAILY Take with breakfast or first main meal Dexilant (Dexlansoprazole) 30 Mg Cap 30 Mg PO DAILY Cymbalta DR (Duloxetine HCl) 60 Mg Capdr 60 Mg PO DAILY Aspirin EC (Aspirin) 81 Mg Tabdr 81 Mg PO DAILY Review of Systems General / Constitutional: No: Fever Eyes: No: Visual changes HENT: No: Headaches Cardiovascular: No: Chest Pain or Discomfort Respiratory: No: Shortness of Breath Gastrointestinal: No: Abdominal Pain Genitourinary: No: Dysuria Musculoskeletal: No: Pain Skin: No Rash Neurologic: No: Weakness Psychiatric: No: Depression Endocrine: No: Polydipsia Hematologic/Lymphatic: No: Easy Bruising Physical Exam Narrative GENERAL: Well-nourished, well-developed patient. SKIN: Focused skin assessment warm/dry. HEAD: Normocephalic. EYES: No scleral icterus. No injection or drainage. Pupils 4 millimeters equal reactive. NECK: Supple, trachea midline. No JVD or lymphadenopathy. CARDIOVASCULAR: Regular rate and rhythm without murmurs, gallops, or rubs. RESPIRATORY: Breath sounds equal bilaterally. No accessory muscle use. GASTROINTESTINAL: Abdomen soft, non-tender, nondistended. MUSCULOSKELETAL: No cyanosis, or edema. BACK: Nontender without obvious deformity. No CVA tenderness. Neurologic exam: Patient's awake and alert oriented 3. No obvious focal neurological deficit. Patient has mild trembling of the extremities and the facial muscles. Deep tendon reflexes 2+ and equal. Negative Babinski. Data Data Last Documented VS Vital Signs Date Time Temp Pulse Resp B/P Pulse Ox O2 Delivery O2 Flow Rate FiO2 12/14/16 02:18 97.8 102 20 116/59 98 Nasal Cannula 2 Orders Diet Npo (12/14/16 Breakfast) Activity Bed Rest (12/14/16 ) Electrocardiogram (12/14/16 ) I-Stat Creatinine (12/14/16 01:35) I-Stat Profile (12/14/16 01:35) Prothrombin Time / Inr (Pt) (12/14/16 01:35) Act Partial Throm Time (Ptt) (12/14/16 01:35) Complete Blood Count With Diff (12/14/16 01:35) Creatine Kinase (Cpk) (12/14/16 01:35) Ua Includes Microscopic (12/14/16 01:35) Drug Screen, Random Urine (12/14/16 01:35) Type And Screen (12/14/16 01:35) Ct Brain W/O Iv Contrast(Rout) (12/14/16 ) Chest, Single Ap (12/14/16 ) Consult Neurology (12/14/16 ) Blood Glucose (12/14/16 01:35) Ecg Monitoring (12/14/16 01:35) Neuro Checks Q2HX12,Q4H (12/14/16 01:35) Nursing Bedside Swallow Assess .ONCE (12/14/16 01:35) Iv Access Insert/Monitor (12/14/16 01:35) NPO (12/14/16 01:35) Oximetry (12/14/16 01:35) Oxygen Administration (12/14/16 01:35) Sodium Chlor 0.9% 1000 Ml Inj (Ns 1000 M (12/14/16 01:35) Resp Oxygen Christophe C Titrat 1-4 L (12/14/16 01:35) Cath For Specimen (12/14/16 01:35) Phenytoin (Dilantin) (12/14/16 01:49) (Hub Use Only)Inp Phy Cons/Ref (12/14/16 ) Labs Laboratory Tests Test 12/14/16 01:38 White Blood Count 8.4 TH/MM3 Red Blood Count 4.89 MIL/MM3 Hemoglobin 13.1 GM/DL Bedside Hemoglobin 13.3 G/DL Hematocrit 40.3 % Bedside Hematocrit 39.0 % Mean Corpuscular Volume 82.4 FL Mean Corpuscular Hemoglobin 26.8 PG Mean Corpuscular Hemoglobin 32.5 % Concent Red Cell Distribution Width 13.8 % Platelet Count 197 TH/MM3 Mean Platelet Volume 9.3 FL Neutrophils (%) (Auto) 54.0 % Lymphocytes (%) (Auto) 34.8 % Monocytes (%) (Auto) 7.9 % Eosinophils (%) (Auto) 2.1 % Basophils (%) (Auto) 1.2 % Neutrophils # (Auto) 4.5 TH/MM3 Lymphocytes # (Auto) 2.9 TH/MM3 Monocytes # (Auto) 0.7 TH/MM3 Eosinophils # (Auto) 0.2 TH/MM3 Basophils # (Auto) 0.1 TH/MM3 CBC Comment DIFF FINAL Differential Comment Prothrombin Time 10.7 SEC Prothromb Time International 1.0 RATIO Ratio Activated Partial 26.9 SEC Thromboplast Time Bedside Sodium 140 MMOL/L Bedside Potassium 3.4 MMOL/L Bedside Chloride 101 MMOL/L Bedside Blood Urea Nitrogen 17 MG/DL Bedside Creatinine 0.7 MG/DL Bedside Glucose 302 MG/DL Total Creatine Kinase 78 U/L Blood Type B POSITIVE Antibody Screen NEGATIVE MDM Medical Decision Making Medical Screen Exam Complete: Yes Emergency Medical Condition: Yes Medical Record Reviewed: Yes Interpretation(s) Last Impressions Head CT 12/14/16 0000 Signed Impressions: Service Date/Time: Wednesday, December 14, 2016 01:39 - CONCLUSION: No acute disease. Aleksandr Nolasco Jr., MD Chest X-Ray 12/14/16 0000 Signed Impressions: Service Date/Time: Wednesday, December 14, 2016 01:51 - CONCLUSION: No acute disease. Aleksandr Nolasco Jr., MD 2:44 AM. CBC within normal limits. BMP within normal limit. Potassium 3.4. Glucose 302. Differential Diagnosis Differential diagnosis including seizure, pseudoseizure, TIA, CVA. Narrative Course 61-year-old female was brought in stroke alert. Patient has history of seizure , pseudoseizure with transient facial drooping 2 months ago. Patient again has transient left facial drooping tonight. Stroke alert was called. CT was normal. I spoke with neurologist on-call, Dr. Erwin. Advised patient to follow-up with Dr. Eckert. Diagnosis Primary Impression: Transient neurologic deficit Patient Instructions: General Instructions Additional Instructions: Advised patient to follow-up with local physician and neurologist. Return as needed. Disposition: 01 DISCHARGE HOME Condition: Stable Gianfranco Olmedo MD December 14, 2016 02:02
[2016-12-14 02:08] LABS: APTT (PATIENT) 26.9 SEC (24.3-30.1); PROTHROMBIN TIME - PATIENT 10.7 SEC (9.8-11.6)
[2016-12-14 02:11] LABS: CREATINE KINASE 78 U/L (26-192)
[2016-12-14 02:18] VITALS: BP 116/59; PULSE 102; RESP 20; TEMP 97.8; O2SAT 98
[2016-12-14 03:57] VITALS: BP 128/70
--- NOTE | 2016-12-14 19:43 | EKG ---
Date Performed: 12/14/2016 Time Performed: 02:14:29 PTAGE: 61 years EKG: SINUS TACHYCARDIA POSSIBLE LEFT ATRIAL ENLARGEMENT NONSPECIFIC T-WAVE ABNORMALITY ABNORMAL RHYTHM ECG PREVIOUS TRACING : 09/30/2016 06.50 Compared to prior tracing no significant change DOCTOR: Valeriano Cast Interpretating Date/Time 12/14/2016 19:41:44
== END 2016-12-14 03:58 | disposition home or self-care (01) ==
LOC: NEPC 01:29
DX: R29.818 Other symptoms and signs involving the nervous system (principal); R00.0 Tachycardia, unspecified; I48.91 Unspecified atrial fibrillation; M79.7 Fibromyalgia; E11.9 Type 2 diabetes mellitus without complications; Z79.4 Long term (current) use of insulin
CPT/HCPCS: 70450; 71010; 80185; 82435; 82550; 82565; 82947; 84132; 84295; 84520; 85025; 85610; 85730; 86850; 86900; 86901; 93005; 96360; 99285; J7030

== ENCOUNTER → 2017-04-05 | Outpatient (CLI) | payer MEDICARE, OTHER ==
[~2017-04-05] MED LIST changes: -DILA100C PO; -INFL100P
== END ==
LOC: CLAB 12:08
PROVIDERS: ATTEND Internal Medicine Interventional Cardiology
DX: R07.89 Other chest pain (principal); R06.02 Shortness of breath; G45.9 Transient cerebral ischemic attack, unspecified; I50.9 Heart failure, unspecified; E11.9 Type 2 diabetes mellitus without complications
CPT/HCPCS: 36415; 83880

== ENCOUNTER 2018-01-09 13:53 | Emergency (ER) | payer MEDICARE, OTHER ==
[~2018-01-09] VITALS: Ht 154.9 cm; Wt 80.0 kg
[~2018-01-09 13:53] MED LIST changes: -ASPI81TA11 PO; +ASPI81TA23 PO
[2018-01-09 14:04] VITALS: BP 127/71; PULSE 101; RESP 16; TEMP 97.4; O2SAT 100
[2018-01-09] MEDS ORDERED: DEXI30CA2 PO (14:27)
[2018-01-09] MEDS ORDERED: DULA10IN SQ (14:27)
--- NOTE | 2018-01-09 14:59 | RADRPT ---
EXAM DATE: 01/09/2018 2:45 PM EDT AGE/SEX: 62 years / Female INDICATIONS: Posterior pelvic pain after fall downstairs. CLINICAL DATA: This is the patient's initial encounter. Patient reports that signs and symptoms have been present for 1 week and indicates a pain score of 8/10. MEDICAL/SURGICAL HISTORY: None. None. COMPARISON: No prior [facility] exams available for comparison. FINDINGS: Examination of the pelvis demonstrates no evidence of fracture or dislocation. Bony mineralization i s normal. There is no widening of the sacroiliac joints. No foreign body is identified. CONCLUSION: Negative examination. Electronically signed by: Liam Correia MD 01/09/2018 2:57 PM EDT
--- NOTE | 2018-01-09 15:00 | RADRPT ---
EXAM DATE: 01/09/2018 2:47 PM EDT AGE/SEX: 62 years / Female INDICATIONS: Posterior lower back pain after fall downstairs. CLINICAL DATA: This is the patient's initial encounter. Patient reports that signs and symptoms have been present for 1 week and indicates a pain score of 8/10. MEDICAL/SURGICAL HISTORY: None. None. COMPARISON: No prior [facility] exams available for comparison. FINDINGS: The vertebral bodies are in normal alignment without evidence of compression deformity Bone density is normal for age. Soft tissues are grossly intact. Cholecystectomy clips CONCLUSION: Negative examination. No acute fracture is noted Electronically signed by: Liam Correia MD 01/09/2018 2:58 PM EDT
--- NOTE | 2018-01-09 15:00 | RADRPT ---
EXAM DATE: 01/09/2018 2:49 PM EDT AGE/SEX: 62 years / Female INDICATIONS: Posterior sacrum and coccyx pain after fall downstairs. CLINICAL DATA: This is the patient's initial encounter. Patient reports that signs and symptoms have been present for 1 week and indicates a pain score of 8/10. MEDICAL/SURGICAL HISTORY: None. None. COMPARISON: No prior [facility] exams available for comparison. FINDINGS: Two-view examination of the sacrum and coccyx demonstrates no evidence of fracture or malalignment. The sacral ala and foramina appear symmetric and intact. The coccyx appears unremarkable. The preve rtebral soft tissues are within normal limits. CONCLUSION: Negative examination. Electronically signed by: Liam Correia MD 01/09/2018 2:59 PM EDT
--- NOTE | 2018-01-09 15:08 | PD ---
HPI Chief Complaint: Fall Time Seen by Provider: 14:17 Travel History International Travel<30 days: No Contact w/Intl Traveler<30days: No Traveled to known affect area: No History of Present Illness HPI 62-year-old female here with tailbone and left buttocks pain after she fell from a standing position into a seated position 7 days ago. She has had continued pain since the injury. She reports bruising to the left buttocks which has improved since the injury. She denies head injury loss of consciousness. No incontinence. No paresthesia or weakness of the extremities. Symptom severity is mild to moderate. Aggravated by sitting and relieved when she offsets her weight. PFSH Past Medical History Hx Anticoagulant Therapy: Yes Arthritis: Yes (PSORIATIC) Asthma: Yes Autoimmune Disease: Yes (psoriosis, fibromyalgia) Anxiety: Yes Depression: Yes Heart Rhythm Problems: Yes (afib) Cancer: No Cardiovascular Problems: Yes High Cholesterol: Yes Chest Pain: Yes Congestive Heart Failure: No COPD: No Cerebrovascular Accident: Yes (2 TIA, 2008, 2015) Diabetes: Yes (2014) Patient Takes Glucophage: No Diminished Hearing: No Endocrine: Yes Fibromyalgia: Yes Gastrointestinal Disorders: Yes GERD: Yes Genitourinary: No Headaches: Yes Hiatal Hernia: No Hypertension: No Immune Disorder: No Implanted Vascular Access Dvce: Yes (LOOP RECORDER) Musculoskeletal: Yes (CERVICAL FISION DISKECTOMY CAPAL TUNNEL) Neurologic: Yes Psychiatric: Yes Reproductive: No Respiratory: Yes Migraines: Yes Myocardial Infarction: No Seizures: Yes (this admit 09/06) Sleep Apnea: No Thyroid Disease: No Ulcer: No ?: Not Past Surgical History Abdominal Surgery: Yes (gallbladder, apx) AICD: No Appendectomy: Yes Arteriovenous Shunt: No Body Medical Devices: heart recorder Cardiac Surgery: Yes (cath;loop recorder) Cholecystectomy: Yes Ear Surgery: No Endocrine Surgery: No Eye Surgery: No Genitourinary Surgery: No Gynecologic Surgery: Yes (hysterectomy) Hysterectomy: Yes Insulin Pump: No Joint Replacement: No Neurologic Surgery: No Oral Surgery: Yes (T&A) Pacemaker: No Thoracic Surgery: No Tonsillectomy: Yes Other Surgery: Yes Social History Alcohol Use: No Tobacco Use: No Substance Use: No Allergies-Medications (Allergen,Severity, Reaction): Coded Allergies: Influenza Virus Vaccines (Unverified Allergy, Severe, Anaphylaxis, 01/09/18) bee venom protein (honey bee) (Unverified Allergy, Severe, Anaphylaxis, 01/09/18) egg (Unverified Allergy, Severe, SWELLING, 01/09/18) Sulfa (Sulfonamide Antibiotics) (Unverified Allergy, Unknown, RASH, 01/09/18 ) Reported Meds & Prescriptions Reported Meds & Active Scripts Active Tylenol-Codeine #3 (Acetaminophen-Codeine) 300-30 mg Tab 1 Tab PO Q6H PRN Reported Dexilant (Dexlansoprazole) 30 Mg Cap.dr.bp 30 Mg PO DAILY Trulicity Inj (Dulaglutide Inj) 0.75 Mg/0.5 Ml Pen 0.75 Mg SQ Q7D Xanax (Alprazolam) 0.5 Mg Tab 0.5 Mg PO Q12HR PRN Imitrex (Sumatriptan Succinate) 100 Mg Tab 100 Mg PO ONCE PRN If a satisfactory response has not been obtained at 2 hours, a second dose may be administered Prednisone 10 Mg Tab 10 Mg PO PRN Lyrica (Pregabalin) 100 Mg Cap 100 Mg PO BID Lantus Inj (Insulin Glargine) Unknown Strength Vial Unknown Dose SQ HS Humalog Kwikpen Pen Inj (Insulin Lispro (Human) Inj) Unknown Strength Pen Unknown Dose SQ DIRECTED Glimepiride 1 Mg Tab 1 Mg PO DAILY Take with breakfast or first main meal Dex DR (Duloxetine HCl) 60 Mg Capdr 60 Mg PO DAILY Aspirin EC (Aspirin) 81 Mg Tabdr 81 Mg PO DAILY Review of Systems Except as stated in HPI: all other systems reviewed are Neg General / Constitutional: No: Fever Eyes: No: Visual changes HENT: No: Headaches Cardiovascular: No: Chest Pain or Discomfort Respiratory: No: Shortness of Breath Gastrointestinal: No: Abdominal Pain Genitourinary: No: Dysuria Skin: No Rash Physical Exam Narrative GENERAL: Alert and well-appearing 62-year-old female. SKIN: Warm and dry. HEAD: Normocephalic. EYES: No injection or drainage. NECK: Supple CARDIOVASCULAR: Regular rate and rhythm without murmurs, gallops, or rubs. RESPIRATORY: Breath sounds equal bilaterally. No accessory muscle use. GASTROINTESTINAL: Abdomen soft, non-tender, nondistended. MUSCULOSKELETAL: No cyanosis, or edema. Normal strength and sensation in the lower extremities. Ambulatory with a steady gait. BACK: +ttp over the sacrum/coccyx. No crepitus. Tenderness over the left buttocks with resolving ecchymosis. Without obvious deformity. No CVA tenderness. Data Data Last Documented VS Orders Orders Spine, Lumbar - Ltd (Ap & Lat) (01/09/18 ) Sacrum And Coccyx (01/09/18 ) Pelvis, Ap Only (Routine) (01/09/18 ) MDM Medical Decision Making Medical Screen Exam Complete: Yes Emergency Medical Condition: Yes Differential Diagnosis Fracture of the lumbar spine, sacrum, coccyx, pelvis versus contusion Narrative Course 62-year-old female here with tailbone and left buttocks pain after she fell from a standing position into a seated position 7 days ago. She has had continued pain since the injury. She reports bruising to the left buttocks which has improved since the injury. She has a normal neurologic exam. X-rays are negative for fracture. She will be treated with Tylenol 3. Return precautions discussed. Diagnosis Primary Impression: Contusion of coccyx Qualified Codes: S30.0XXA - Contusion of lower back and pelvis, initial encounter Referrals: Primary Care Physician Additional Instructions: Medication as directed. Continue taking ibuprofen 800 mg every 6 hours as needed for pain. Follow-up with your primary doctor. Scripts Acetaminophen-Codeine (Tylenol-Codeine #3) 300-30 mg Tab 1 TAB PO Q6H Y for PAIN, #10 TAB 0 Refills Prov: Karissa Cantor 01/09/18 Disposition: 01 DISCHARGE HOME Condition: Stable Karissa Cantor Jan 09, 2018 15:07
[2018-01-09] MEDS ORDERED: TYLETAB34 PO (15:09)
== END 2018-01-09 15:16 | disposition home or self-care (01) ==
LOC: PHEFT 13:53
DX: S30.0XXA Contusion of lower back and pelvis, initial encounter (principal); M79.7 Fibromyalgia; L40.9 Psoriasis, unspecified; E11.9 Type 2 diabetes mellitus without complications; K21.9 Gastro-esophageal reflux disease without esophagitis; E78.00 Pure hypercholesterolemia, unspecified; J45.909 Unspecified asthma, uncomplicated; F41.9 Anxiety disorder, unspecified; W18.30XA Fall on same level, unspecified, initial encounter
CPT/HCPCS: 72100; 72170; 72220; 99284